=== PATIENT | female | born 1985 | race Caucasian/White ===

== ENCOUNTER 2019-06-09 09:12 | Outpatient (CLI) | payer MEDICAID, SELFPAY ==
--- NOTE | 2019-06-09 | US_ITS ---
WS: [id number] BILATERAL DIGITAL DIAGNOSTIC MAMMOGRAM MAMMOGRAPHY WITH CAD CLINICAL INFORMATION: RT BREAST LUMP COMPARISON: None. TECHNIQUE: Bilateral CC, MLO, and ML views. FINDINGS: The breasts are composed of extremely dense tissue, which can limit the detection of small underlying mass lesions. Palpable marker upper outer right breast. No definite underlying mammographic abnormal ities. Ultrasound right breast is pending. Left breast is unremarkable and unchanged in appearance. ULTRASOUND BREAST RIGHT TECHNIQUE: Ultrasound right breast focused area of concern. CLINICAL INFORMATION: RT BREAST LUMP COMPARISON: None. FINDINGS: Complex cystic lesion at the 11:00 position measuring 7 x 5 x 7 mm with internal debris and echogenic ity. This corresponds to the palpable abnormality. This may represent a complex cyst but is indetermi nant and palpable. Therefore recommend further evaluation with ultrasound-guided aspiration/biopsy. Axilla is also evaluated and demonstrates a well-circumscribed hypoechoic lesion with some through tr ansmission which likely represents a complex cyst. This could be re-evaluated when patient returns fo r biopsy/aspiration of the above lesion. IMPRESSION US/US breast RT limited* [id number] BI-RADS: 4A-Suspicious: Low FOLLOW UP: US Guided Biopsy Recommended
--- NOTE | 2019-06-09 09:28 | MM_ITS ---
WS: [id number] BILATERAL DIGITAL DIAGNOSTIC MAMMOGRAM MAMMOGRAPHY WITH CAD CLINICAL INFORMATION: RT BREAST LUMP COMPARISON: None. TECHNIQUE: Bilateral CC, MLO, and ML views. FINDINGS: The breasts are composed of extremely dense tissue, which can limit the detection of small underlying mass lesions. Palpable marker upper outer right breast. No definite underlying mammographic abnormal ities. Ultrasound right breast is pending. Left breast is unremarkable and unchanged in appearance. ULTRASOUND BREAST RIGHT TECHNIQUE: Ultrasound right breast focused area of concern. CLINICAL INFORMATION: RT BREAST LUMP COMPARISON: None. FINDINGS: Complex cystic lesion at the 11:00 position measuring 7 x 5 x 7 mm with internal debris and echogenic ity. This corresponds to the palpable abnormality. This may represent a complex cyst but is indetermi nant and palpable. Therefore recommend further evaluation with ultrasound-guided aspiration/biopsy. Axilla is also evaluated and demonstrates a well-circumscribed hypoechoic lesion with some through tr ansmission which likely represents a complex cyst. This could be re-evaluated when patient returns fo r biopsy/aspiration of the above lesion. IMPRESSION MM/[place] [id number] BI-RADS: 4A-Suspicious: Low FOLLOW UP: US Guided Biopsy Recommended
== END 2019-06-09 09:13 | disposition home or self-care (01) ==
PROVIDERS: Family Provider Family Medicine; PCP Family Medicine; Visit Provider Nurse Practitioner Family
DX: N60.01 Solitary cyst of right breast (principal); N63.11 Unspecified lump in the right breast, upper outer quadrant
CPT/HCPCS: 76642; 77066

== ENCOUNTER 2019-07-04 12:32 | Outpatient (CLI) | payer MEDICAID, SELFPAY ==
--- NOTE | 2019-07-04 | US_ITS ---
WS: [id number] ULTRASOUND-GUIDED RIGHT BREAST BIOPSY Ultrasound-guided RIGHT axillary lymph node biopsy HISTORY: ABNORMAL MAMMOGRAM, abnormal axillary lymph node. COMPARISON: 06/09/2019 and 05/23/2012 Procedure, risks and complications are explained to the patient. Medications are reviewed. Consent is obtained. The mass in the RIGHT breast is localized with ultrasound. Masses localized at 11:00. Additional loca lization of the RIGHT axillary lymph node which is very hypoechoic. Skin is cleansed with ChloraPrep and anesthetized with 1% buffered lidocaine. Small dermatome is made. Under sterile conditions mass i s biopsied with a 14-gauge Achieve needle. Multiple core biopsies are performed. Material placed in f ormalin and sent to pathology for review. No complications encountered. Breast tissue marker (Bard ultrasound enhanced ribbon): None. Patient left the radiology suite with no complications. Patient is instructed to return to [facility] [place] or [facility] with any concerns. 1. Uncomplicated core needle biopsy RIGHT breast mass at 11:00. 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 No definite invasion tumor identified. Additional special stains a nd consultation is being obtained. Follow-up: Additional stains were performed and demonstrated no malignancy. RECOMMENDATION: No additional follow-up necessary. 2. Uncomplicated core needle biopsy RIGHT axillary lymph node. PATHOLOGY: No viable metastatic tumor identified. Necrotic cells may represent infarcted lymph node or necrotic metastatic carcinoma. RECOMMENDATION: No metastatic tumor was identified. Due to the necrotic nature cannot exclude necrotic metastatic carcinoma. If further evaluation is warrante d clinically, follow-up with surgery and surgical removal of this lymph node ca n be performed.
--- NOTE | 2019-07-04 12:38 | US_ITS ---
WS: [id number] ULTRASOUND-GUIDED RIGHT BREAST BIOPSY Ultrasound-guided RIGHT axillary lymph node biopsy HISTORY: ABNORMAL MAMMOGRAM, abnormal axillary lymph node. COMPARISON: 06/09/2019 and 05/23/2012 Procedure, risks and complications are explained to the patient. Medications are reviewed. Consent is obtained. The mass in the RIGHT breast is localized with ultrasound. Masses localized at 11:00. Additional loca lization of the RIGHT axillary lymph node which is very hypoechoic. Skin is cleansed with ChloraPrep and anesthetized with 1% buffered lidocaine. Small dermatome is made. Under sterile conditions mass i s biopsied with a 14-gauge Achieve needle. Multiple core biopsies are performed. Material placed in f ormalin and sent to pathology for review. No complications encountered. Breast tissue marker (GeoEye ultrasound enhanced ribbon): None. Patient left the radiology suite with no complications. Patient is [place] [facility] [place] [facility] with any concerns. 1. Uncomplicated core needle biopsy RIGHT breast mass at 11:00. US/[place] [id number] IMPRESSION: PATHOLOGY: Sclerosing adenosis with columnar cell hyperplasia and moderate cell ular atypia. No definite invasion tumor identified. Additional special stains a nd consultation is being obtained. Follow-up: Additional stains were performed and demonstrated no malignancy. RECOMMENDATION: No additional follow-up necessary. 2. Uncomplicated core needle biopsy RIGHT axillary lymph node. PATHOLOGY: No viable metastatic tumor identified. Necrotic cells may represent infarcted lymph node or necrotic metastatic carcinoma. RECOMMENDATION: No metastatic tumor was identified. Due to the necrotic nature cannot exclude necrotic metastatic carcinoma. If further evaluation is warrante d clinically, follow-up with surgery and surgical removal of this lymph node ca n be performed.
== END 2019-07-04 12:33 | disposition home or self-care (01) ==
LOC: RAD 12:35
PROVIDERS: Family Provider Family Medicine; PCP Family Medicine; Visit Provider Nurse Practitioner Family
DX: N60.21 Fibroadenosis of right breast (principal); N60.91 Unspecified benign mammary dysplasia of right breast; R92.8 Other abnormal and inconclusive findings on diagnostic imaging of breast; Z01.812 Encounter for preprocedural laboratory examination
CPT/HCPCS: 19083; 38505; 76942; 88305; 88341; 88342; J2001

== ENCOUNTER 2019-07-13 09:24 | Outpatient (RCR) | payer MEDICAID, SELFPAY | END 2019-08-05 23:59 | disposition home or self-care (01) | LOC: APT 09:24 | PROVIDERS: Family Provider Family Medicine; PCP Family Medicine; Visit Provider Nurse Practitioner Family | DX: G89.29 Other chronic pain (principal); M54.9 Dorsalgia, unspecified | CPT/HCPCS: 97110; 97140; 97161 ==

== ENCOUNTER 2019-08-01 08:17 | Day surgery (SDC) | payer MEDICAID, SELFPAY ==
[2019-07-31 10:08] VITALS: BMI 21.2
[2019-08-01 08:57] LABS: OR HCG Qualitative Urine Negative (Negative)
[2019-08-01] MEDS: sodium chloride 0.9% 1,000 ML 30 ML IV (09:11)
[2019-08-01 09:14] VITALS: BP 115/76; PULSE 73; RESP 18; TEMP 36.9; O2SAT 98
--- NOTE | 2019-08-01 09:34 | ANES.PREANE2 ---
Pre-Anesthetic Assessment Pre-Anesthetic Assessment: Height/Weight: Height 1.73 m Weight 63.503 kg Temp Pulse Resp BP Pulse Ox 98.5 F 73 18 115/76 98 08/01/19 09:14 08/01/19 09:14 08/01/19 09:14 08/01/19 09:14 08/01/19 09:14 Preop Diagnosis: Right axillary lymphadenopathy Proposed Procedure: Operation Date: 08/01/19 10:10 Proposed Procedures p Excision Of Right Axillary Mass 71417 R59.0(Right) - Colt Tatum MD Familial anesthetic complications: None Was Beta Tobi taken within 24 hours: N/A Last intake: Intake Last Liquid Date 08/01/19 Last Liquid Time 00:00 Last Solid Date 08/01/19 Last Solid Time 00:00 Social: Social History: Tobacco Packs per day: 1 ppd Exam: Pre-Anes Outpt Exam: alert, oriented x 3, clear to auscultation bilaterally and regular rate & rhythm Airway: Cervical ROM: WNL MP: 3 Dentition: Chipped Additional comments: missing Pulmonary: Pulmonary: None reported CV/HEM: CV/HEM: None reported : : None reported Hepatic: Hepatic: None reported GI: GI: GERD Metabolic: Metabolic: None reported Musc/skel: Musc/skel: Lower Back Pain Neuropsych: Neuropsych: None reported Anesthetic Plan: ASA status: 2 Anesthesia: MAC Meds/Allergies Current Medications: Current Medications Generic Name Dose Route Start Last Admin Trade Name Freq PRN Reason Stop Dose Admin Sodium Chloride 1,000 mls @ 30 ml s/hr 08/01/19 09:00 08/01/19 09:11 Sodium Chloride 0.9% IV 08/02/19 08:59 30 mls/hr .Q24H DANNY Administration PFSH Anesthesia PFSH: Social History Smoking and tobacco status: current every day smoker Alcohol intake: current Alcohol intake frequency: holidays/special occasions only Marital status: Single History of recent travel: No Data Anesthesia Other Labs: Laboratory Results - last 48 hr 08/01/19 08:53 Urine HCG, Qual Negative Cardiac Studies: No Data to Display
--- NOTE | 2019-08-01 09:45 | W.PM.OPSUD ---
Surgery/Procedure H&P Update DATE OF PROCEDURE: August 01, 2019 DATE H&P PERFORMED: 07/26/19 H&P UPDATE INFORMATION: I have reviewed H&P completed within last 30 days, I have examined patient prior to procedure and No changes to prior documentation PREOP DIAGNOSIS: Right axillary lymphadenopathy PRIMARY INDICATION FOR PROCEDURE: The same PLANNED PROCEDURE: Operation Date: 08/01/19 10:10 Proposed Procedures p Excision Of Right Axillary Mass [id number] R59.0(Right) - Colt Tatum MD
[2019-08-01] MEDS: clindamycin 600 MG/50 ML PREMIX 100 MG IV (10:10)
[2019-08-01] MEDS: lidocaine 2% INJ 20 mL INJECTION (10:15)
--- NOTE | 2019-08-01 11:02 | P.OP_ITS ---
Operative Report Date of procedure: August 01, 2019 Pre-op Diagnosis: Right axillary lymphadenopathy Post-op diagnosis: same Procedure Done: Excision of right axillary lymph node Specimens removed/disposition: Lymph node was cut at the back table by me and divided into 3 specimens : specimen #1 sent for permanent pathology Specimen #2 sent for lymphoma saline fresh Specimen #3 and sent for tissues and culture Surgeon: Colt Tatum Photoengraving Machine Operator/Tender: Surgical techharris Nassar Circulating nurse Fernanda Anesthesia: MAC (dog and cat food cook Galilea) Estimated blood loss (mL): 5 Findings: Right axillary lymph node less than 1 cm belongs to the anterior group of the right axilla Condition: stable Disposition: same day Brief History: This is a pleasant 34 years old female patient was found to have a painful right breast lump that was biopsied and showed sclerosing adenosis yet there was incidental finding of right axilla lymph node that was biopsied and showed necrosis and there was concern of potential metastatic disease yet there was no final pathological confirmation per pathology, patient was referred to me for further evaluation and after thorough history physical examination and reviewing the chart and reviewing the images with my personal interpretation and discussing further the case with Dr. Leblanc the pathologist, he recommended to excised the lymph node in its entirety for better interpretation and examination. Patient agreed on the plan of care and informed consent per chart Procedure: Axillary lymph node biopsy After identifying the patient holding area, the right axilla was marked before the procedure by myself in the presence of female corporate relations manager Fernanda and Aaliyah RNs,patient was then taken to the operative suite, was placed in supine position, intubated by anesthesia, prophylactic IV antibiotics were given per protocol, right arm was placed in 90? to her body, prep and drape of the right axillary and pectoralis regions was done under the usual sterile technique the right arm Time-out was done verifying the patient's name/date of /planned procedure and destination after the procedure, all were in agreement. After palpation of the right axillary lymph which was located in the anterior axillary group, I did a transverse incision on top of the lymph node corresponding to the skin crease increase, I was able to dissect using Bovie cautery and a good margin of normal subcutaneous tissues surrounding the lymph node, multiple small clips were applied for hemostasis. At the back table the Lymph node specimen was cut by me First portion sent for permanent pathology Second portion sent fresh for lymphoma cell line Third portion sent for culture & sensitivity And the specimens were then passed to the circulating nurse. Thorough irrigation of the cavity was done and hemostasis, followed by deep dermal closure by 3-0 Vicryl, then 4-0 Monocryl for skin closure Lidocaine 2% was injected at the site of the incision that prior to the injection aspiration was done to make sure no injection is going into any vessel, followed by Mastisol Steri-Strips and dry dressing. Patient tolerated the procedure well, count of instruments, needles and sponges were completed at the end of the procedure.And then patient was taken to the recovery area in stable condition. I Was present for the whole entire procedure
[2019-08-01 11:09] VITALS: BP 101/68; PULSE 78; RESP 18; TEMP 36.2; O2SAT 99
[2019-08-01] MEDS: HYDROcodone-acetaminophen 5-325 mg Tablet 1 TAB PO (11:34)
[2019-08-01 11:39] VITALS: BP 122/81; PULSE 73; RESP 18; O2SAT 99
[2019-08-08 13:32] LABS: Miscellaneous Test See Scanned Lab Rpt
== END 2019-08-01 11:58 | disposition home or self-care (01) ==
PROVIDERS: Family Provider Family Medicine; PCP Nurse Practitioner Family; Visit Provider Surgery
PROC: (CPT 38500; principal; 2019-08-01 10:10)
DX: R59.1 Generalized enlarged lymph nodes (principal); F17.210 Nicotine dependence, cigarettes, uncomplicated; K21.9 Gastro-esophageal reflux disease without esophagitis
CPT/HCPCS: 38500; 12345; 81025; 84703; 87015; 87070; 87077; 87102; 87116; 87176; 87186; 87205; 87206; 87801; 88305; J1100; J2001; J2250; J2405; J2704; J3010; J3490; J7030

== ENCOUNTER 2019-08-06 06:00 | Outpatient (RCR) | payer MEDICAID, SELFPAY | END 2019-09-05 23:59 | disposition home or self-care (01) | LOC: APT 06:00 | PROVIDERS: Family Provider Family Medicine; PCP Nurse Practitioner Family; Visit Provider Nurse Practitioner Family | DX: M54.5 Low back pain (principal) | CPT/HCPCS: 97110; 97140; 97164 ==

== ENCOUNTER → 2019-08-09 12:01 | Outpatient (BNVA) | payer MEDICAID, SELFPAY | PROVIDERS: Family Provider Family Medicine; PCP Nurse Practitioner Family; Visit Provider Nurse Practitioner | DX: E55.9 Vitamin D deficiency, unspecified (principal); R53.83 Other fatigue; Z13.220 Encounter for screening for lipoid disorders | CPT/HCPCS: 80053; 80061; 82306; 82607; 83540; 84443; 85025 ==

== ENCOUNTER → 2019-11-21 11:41 | Outpatient (BNVA) | payer MEDICAID, SELFPAY | PROVIDERS: Family Provider Family Medicine; PCP Nurse Practitioner Family; Visit Provider Nurse Practitioner | DX: E53.8 Deficiency of other specified B group vitamins (principal); E55.9 Vitamin D deficiency, unspecified; R53.83 Other fatigue | CPT/HCPCS: 82306; 82607; 83540; 85651; 86140; 86800 ==

== ENCOUNTER 2020-01-31 21:52 | Emergency (ER) | payer MEDICAID, SELFPAY ==
[2020-01-31 22:12] VITALS: BP 114/74; PULSE 98; RESP 14; TEMP 37; O2SAT 99; BMI 21.9
--- NOTE | 2020-01-31 23:51 | ED_ITS ---
HPI - Abdominal Pain General: Chief Complaint: Abdominal Pain Stated Complaint: abd pain Time Seen by Provider: 01/31/20 23:50 History of Present Illness: HPI narrative: Patient is a 34-year-old female comes to the ED with abdominal pain, nausea and vomiting. Abdominal pain started approximately 5 days ago. Pain is located in the arline-umbilical region and she says that gets worse at the evening. She rates the pain currently a 10 out of 10. Today patient started feeling nauseous and had 3 episodes of emesis. She endorses having a decreased appetite since onset of abdominal pain. Patient denies any past surgeries on the abdomen. Denies any constipation, diarrhea, blood in the stool, fever, chills, dysuria or hematuria. Associated Symptoms: Reports nausea and vomiting; Denies chills, constipation, diarrhea, dysuria, fever(s), hematochezia and hematuria Review of Systems Const: Reports: change in appetite (Decreased appetite); Denies: fever(s), chills or fatigue Eyes: Denies: change in vision or eye discomfort ENMT: Denies: throat pain, odynophagia, nasal discharge or nasal congestion Card: Denies: chest pain, palpitations, edema, swelling of feet/ankles, dyspnea on exertion or orthopnea Resp: Denies: dyspnea, productive cough or non-productive cough GI: Reports: abdominal pain, nausea and vomiting; Denies: diarrhea, constipation or hematochezia : Denies: flank pain, dysuria or hematuria Musc: Denies: neck pain, back pain or extremity swelling Skin/Breast: Denies: rash or new lesions Neuro: Denies: headache(s), numbness in extremities or weakness in extremities [facility] PFSH: Medical History Breast lump GERD (gastroesophageal reflux disease) Hypoglycemia Surgical History History of breast biopsy July 04 History of foot surgery History of lymphadenopathy Right axilla removal 08/01/19 History of tonsillectomy Family History Other Cancer Diabetes Denies family history of Anesthesia complication Bleeding disorder Social History Smoking and tobacco status: current every day smoker Second hand smoke exposure: No Smoking risk assessment/counseling performed?: No Alcohol intake: current Alcohol intake frequency: holidays/special occasions only Desire information about alcohol rehabilitation?: No Counseling given: No Desire information about substance/drug rehabilitation?: No Counseling given: No Adopted: No Caregiver/support person: No Lives independently: Yes Household members: children and none Housing: House Marital status: Single Number of children: 2 service: No Current occupational status: employed Current occupation: [employer] History of recent travel: No Current gender identity: Female Physical Exam Const: COMMON NORMALS: no acute distress, patient oriented x3, healthy appearing and alert GENERAL APPEARANCE: cooperative and comfortable HENMT: COMMON NORMALS: normocephalic HEAD & SCALP: normocephalic MOUTH: Normal oral and palatal mucosa present THROAT: posterior oropharynx normal and uvula midline Eye: COMMON NORMALS: Equal, round and reactive pupils present PUPIL: Yes Equal, round and reactive pupils present Neck/C-Spine: COMMON NORMALS: supple GENERAL: Yes normal visual inspection Resp: COMMON NORMALS: normal respiratory effort, No retractions, No use of accessory muscles and clear to auscultation bilaterally EFFORT & INSPECTION: Yes able to speak in complete sentences, No tachypneic, No respiratory distress and No labored AUSCULTATION: clear to auscultation bilaterally Cardio: COMMON NORMALS: regular rate, regular rhythm, S1 normal heart sound present, S2 normal heart sound present, No gallops present (Cardio), No clicks present (Cardio), No murmurs present (Cardio) and Peripheral pulses 2+ throughout RATE: regular rate RHYTHM: regular rhythm HEART SOUNDS: S1 normal heart sound present and S2 normal heart sound present PERIPHERAL PULSES: Peripheral pulses 2+ throughout GI: COMMON NORMALS: Normal to inspection, nondistended, normoactive bowel sounds present, Soft to palpation and no masses PALPATION: Yes Soft to palpation and Yes Tenderness to palpation present (GI) Details: RLQ (McBurney's point tenderness) and other (Periumbilical) : COMMON NORMALS: Yes no CVA tenderness BLADDER/KIDNEY EXAM: Yes no CVA tenderness Back/Pelvis: COMMON NORMALS: no CVA tenderness Extremity: COMMON NORMALS: normal to inspection and no pedal edema Neuro: COMMON NORMALS: patient oriented x3 SENSORIUM/ORIENTATION: Yes alert GAIT: Yes Normal gait present Skin: COMMON NORMALS: no rashes or lesions noted GENERAL SKIN EXAM: no rashes or lesions noted and dry skin Course Reevaluation(s): Reevaluation #1: Patient's abdominal pain had improved after pain meds while here in the ED. Time: 02:35 Vital Signs: Vital signs: Vital Signs Temperature 98.6 F 01/31/20 22:12 Pulse Rate 98 01/31/20 22:12 Respiratory Rate 20 H 02/01/20 01:15 Blood Pressure 114/74 01/31/20 22:12 Pulse Oximetry 97 02/01/20 01:15 MDM - Abdominal Pain MDM Narrative: Medical decision making narrative: Patient is a 34-year-old female comes to the ED with abdominal pain. Pain is located in the periumbilical region and she has some tenderness in the right lower quadrant. Denies any fever, chills, diarrhea, constipation, blood in the stool, dysuria or hematuria. White blood cell count 18.4, but the rest of CBC and CMP were unre markable. Lipase 10. hCG was negative. UA showed a significant amount of RBCs. CT of the abdomen showed mesenteric adenitis. Patient was diagnosed with mesenteric adenitis and hematuria antibiotic. Due to patient's high white blood cell count and mesenteric adenitis I put her on a prescription of Flagyl and ciprofloxacin. I also sent her home with a prescription of Zofran to help with nausea. She was told to follow-up with her PCP in about 5 days and to discuss with PCP about large amounts of RBCs and blood seen in UA. Return to ED precautions given. Patient understood and agreed with plan. Lab Data: Attestation: I reviewed the patient's lab results. Labs: Lab Results 02/01/20 02/01/20 02/01/20 Range/Units 00:45 00:45 00:45 WBC 18.4 H (4.0-10.0) 10^3/ uL RBC 4.23 (4.1-5.3) 10^6/u L Hgb 13.0 (11.5-15.3) g/dL Hct 40.7 (37.0-47.0) % MCV 96.2 (81-99) fL MCH 30.7 (28.0-34.0) pg MCHC 31.9 (30.0-36.0) g/dL RDW 12.3 (12.1-15.1) % Plt Count 246 (130-400) 10^3/c mm MPV 10.9 H (7.4-10.4) fL Neut % (Auto) 76.7 % Lymph % (Auto) 14.7 % Hamlin % (Auto) 7.1 % Eos % (Auto) 0.6 % Baso % (Auto) 0.5 % Neut # (Auto) 14.12 H (1.8-7.7) 10^3/u L Lymph # (Auto) 2.7 (0.8-4.8) 10^3/u L Hamlin # (Auto) 1.3 H (0.2-0.9) 10^3/u L Eos # (Auto) 0.1 (0.0-0.8) 10^3/u L Baso # (Auto) 0.1 (0.0-0.1) 10^3/u L Nucleated RBC % (a uto) 0 % Nucleated RBCs # 0.0 /100WBC Sodium 139 (136-145) mmol/L Potassium 4.2 (3.5-5.1) mmol/L Chloride 107 (98-107) mmol/L Carbon Dioxide 21 L (22-29) mmol/L Anion Gap 15.2 (5-19) BUN 13 (6-20) mg/dL Creatinine 0.6 (0.5-0.9) mg/dL GFR Calculation 113.8 (90-130) mL/min Glucose 96 (65-115) mg/dL Calculated Osmolal ity 284 L (285-295) mOsm/k g Calcium 8.7 (8.5-10.5) mg/dL Total Bilirubin 0.2 (0.15-1.2) mg/dL AST 8 (0-32) U/L ALT < 5 (0-33) U/L Alkaline Phosphata se 79 (35-105) IU/L Total Protein 6.8 (6.6-8.7) g/dL Albumin 3.6 (3.5-5.2) g/dL Globulin 3.2 (1.3-4.6) g/dL Lipase 10 L (13-60) U/L HCG, Qual Negative (Negative) Urine Color (Yellow) Urine Appearance (CLEAR) Urine pH (5-7) Ur Specific Gravit y (1.005-1.030) Urine Protein (Negative) Urine Glucose (UA) (Normal) Urine Ketones (Negative) Urine Blood (Negative) Urine Nitrate (Negative) Urine Bilirubin (NEGATIVE) Urine Urobilinogen (Negative) mg/dL Ur Leukocyte Vanna ase (Negative) Urine RBC (0-2) /hpf Urine WBC (0-5) /hpf Ur Squamous Epith Cells (0-5) Amorphous Sediment Urine Bacteria (NONE) Urine Mucus 02/01/20 02/01/20 Range/Units 02:45 02:45 WBC (4.0-10.0) 10^3/ uL RBC (4.1-5.3) 10^6/u L Hgb (11.5-15.3) g/dL Hct (37.0-47.0) % MCV (81-99) fL MCH (28.0-34.0) pg MCHC (30.0-36.0) g/dL RDW (12.1-15.1) % Plt Count (130-400) 10^3/c mm MPV (7.4-10.4) fL Neut % (Auto) % Lymph % (Auto) % Hamlin % (Auto) % Eos % (Auto) % Baso % (Auto) % Neut # (Auto) (1.8-7.7) 10^3/u L Lymph # (Auto) (0.8-4.8) 10^3/u L Hamlin # (Auto) (0.2-0.9) 10^3/u L Eos # (Auto) (0.0-0.8) 10^3/u L Baso # (Auto) (0.0-0.1) 10^3/u L Nucleated RBC % (a uto) % Nucleated RBCs # /100WBC Sodium (136-145) mmol/L Potassium (3.5-5.1) mmol/L Chloride (98-107) mmol/L Carbon Dioxide (22-29) mmol/L Anion Gap (5-19) BUN (6-20) mg/dL Creatinine (0.5-0.9) mg/dL GFR Calculation (90-130) mL/min Glucose (65-115) mg/dL Calculated Osmolal ity (285-295) mOsm/k g Calcium (8.5-10.5) mg/dL Total Bilirubin (0.15-1.2) mg/dL AST (0-32) U/L ALT (0-33) U/L Alkaline Phosphata se (35-105) IU/L Total Protein (6.6-8.7) g/dL Albumin (3.5-5.2) g/dL Globulin (1.3-4.6) g/dL Lipase (13-60) U/L HCG, Qual Negative (Negative) Urine Color Dark yellow (Yellow) Urine Appearance Sl hazy (CLEAR) Urine pH 5 (5-7) Ur Specific Gravit y 1.020 (1.005-1.030) Urine Protein Neg (Negative) Urine Glucose (UA) Norm (Normal) Urine Ketones Negative (Negative) Urine Blood 3+ H (Negative) Urine Nitrate Negative (Negative) Urine Bilirubin Neg (NEGATIVE) Urine Urobilinogen Norm (Negative) mg/dL Ur Leukocyte Vanna ase Negative (Negative) Urine RBC >100 H (0-2) /hpf Urine WBC 0-4 H (0-5) /hpf Ur Squamous Epith Cells 0-4 H (0-5) Amorphous Sediment Not Reportable Urine Bacteria 1+ H (NONE) Urine Mucus 1+ Imaging Data ^: CT Abd/Pel: Attestation: I personally reviewed and interpreted this imaging study as follows: Radiologist's impression: [place] [address] CT Scan Report Signed Patient: Bety Mercer Unit #: [id number] : 1985 Age/Sex: 34 / F ADM Date: 01/31/20 Loc: ER Room/Bed: Attending Dr: Ordering Provider/Ordering MD: Miguel Peña Date of Service: 02/01/20 Procedure(s): CT abdomen pelvis w con* [id number] Accession Number(s): [id number] Report Number: [id number] PROCEDURE INFORMATION: Exam: CT Abdomen And Pelvis With Contrast Exam date and time: 02/01/2020 12:39 AM Age: 34 years old Clinical indication: Abdominal pain; Generalized; Additional info: Rlq tenderness and periumbilical pain TECHNIQUE: Imaging protocol: Computed tomography of the abdomen and pelvis with intravenous contrast. Radiation optimization: All CT scans at this facility use at least one of these dose optimization techniques: automated exposure control; mA and/or kV adjustment per patient size (includes targeted exams where dose is matched to clinical indication); or iterative reconstruction. Contrast material: OMNI 300; Contrast volume: 95 ml; Contrast route: INTRAVENOUS (IV); COMPARISON: No relevant prior studies available. RADIATION DOSE METRICS: Total DLP (mGy-cm): 466.39 FINDINGS: Liver: The liver is mildly enlarged. No parenchymal lesion is seen. Gallbladder and bile ducts: Normal. No calcified stones. No ductal dilation. Pancreas: Normal. No ductal dilation. Spleen: Normal. No splenomegaly. Adrenals: Normal. No mass. Kidneys and ureters: Normal. No hydronephrosis. Stomach and bowel: Unremarkable. No obstruction. No mucosal thickening. Appendix: The appendix is normal. Intraperitoneal space: Unremarkable. No free air. No significant fluid collection. Vasculature: Unremarkable. No abdominal aortic aneurysm. Lymph nodes: Several mildly prominent lymph nodes are observed in the ileocolic region. Bladder: Unremarkable as visualized. Reproductive: The uterus and ovaries appear normal. Bones/joints: Unremarkable. No acute fracture. Soft tissues: Unremarkable. CT/CT abdomen pelvis w con* [id number] IMPRESSION: 1. Possible mild mesenteric adenitis. The appendix is normal. 2. Mild hepatomegaly. Radiation Dose CTDIVOL = (mGy): DLP = 466.39 (mGy-cm) Dictated By: Ernie Santamaria MD Signed By: Ernie Santamaria MD Signed Date/Time: 02/01/20222 DD/ 0 Discharge Plan Discharge Patient Disposition: Home Clinical Impression: Mesenteric adenitis, Hematuria of unknown etiology Condition: Stable Prescriptions: New Zofran 4 mg tablet 4 mg PO Q8H Qty: 20 RF: 0 ciprofloxacin HCl 750 mg tablet 750 mg PO DAILY 5 Days Qty: 5 RF: 0 Flagyl 500 mg tablet 500 mg PO TID 7 Days Qty: 21 RF: 0 No Action etonogestrel-ethinyl estradiol [NuvaRing] 0.12-0.015 mg/24 hr ring See Rx Instructions .ROUTE .COMPLEX RF: 0 cholecalciferol (vitamin D3) 5,000 unit tablet,disintegrating 5,000 unit PO DAILY Qty: 30 RF: 0 cyanocobalamin (vitamin B-12) 1,000 mcg/mL solution 1,000 mcg IM .monthly 7 Days Qty: 1 RF: 2 meloxicam [Mobic] 15 mg tablet 15 mg PO DAILY Qty: 30 RF: 2 Discharge Orders: Discharge Order (Routine); Ordered 02/01/20 Ordered By: Miguel Peña Referrals: Daysi Haro, THERAPY TEACHER-C [Primary Care Provider] - Discharge Diet: Advance as tolerated Discharge Activity: Increase activity as tolerated Patient Instructions: Hematuria - Female, Acute Hematuria (ED), Mesenteric Adenitis (ED) Activity Restrictions/Additional Instructions: Follow-up with medical provider as directed in about 5 days. Discussed with your doctor about recent findings of blood in the urine. Take medications as prescribed. Return to the ER or your medical provider if condition worsens. Please read and understand discharge instructions. If any questions, please ask. Coding Level of Care Code ED Ophthalmic Tech for Briseida Fwd Exam Comprehensive
--- NOTE | 2020-02-01 00:05 | CTR_ITS ---
PROCEDURE INFORMATION: Exam: CT Abdomen And Pelvis With Contrast Exam date and time: 02/01/2020 12:39 AM Age: 34 years old Clinical indication: Abdominal pain; Generalized; Additional info: Rlq tenderness and periumbilical pain TECHNIQUE: Imaging protocol: Computed tomography of the abdomen and pelvis with intravenous contrast. Radiation optimization: All CT scans at this facility use at least one of these dose optimization techniques: automated exposure control; mA and/or kV adjustment per patient size (includes targeted exams where dose is matched to clinical indication); or iterative reconstruction. Contrast material: OMNI 300; Contrast volume: 95 ml; Contrast route: INTRAVENOUS (IV); COMPARISON: No relevant prior studies available. RADIATION DOSE METRICS: Total DLP (mGy-cm): 466.39 FINDINGS: Liver: The liver is mildly enlarged. No parenchymal lesion is seen. Gallbladder and bile ducts: Normal. No calcified stones. No ductal dilation. Pancreas: Normal. No ductal dilation. Spleen: Normal. No splenomegaly. Adrenals: Normal. No mass. Kidneys and ureters: Normal. No hydronephrosis. Stomach and bowel: Unremarkable. No obstruction. No mucosal thickening. Appendix: The appendix is normal. Intraperitoneal space: Unremarkable. No free air. No significant fluid collection. Vasculature: Unremarkable. No abdominal aortic aneurysm. Lymph nodes: Several mildly prominent lymph nodes are observed in the ileocolic region. Bladder: Unremarkable as visualized. Reproductive: The uterus and ovaries appear normal. Bones/joints: Unremarkable. No acute fracture. Soft tissues: Unremarkable. CT/CT abdomen pelvis w con* [id number] IMPRESSION: 1. Possible mild mesenteric adenitis. The appendix is normal. 2. Mild hepatomegaly. Radiation Dose CTDIVOL = (mGy): DLP = 466.39 (mGy-cm)
[2020-02-01] MEDS: sodium chloride 0.9% 1,000 ML 999 ML IV (01:00)
[2020-02-01] MEDS: ondansetron 2 mg/ML SDV 2 mL 4 MG IVP (01:05)
[2020-02-01 01:15] VITALS: RESP 20; O2SAT 97
[2020-02-01] MEDS: morphine 4 mg/mL SDV 1 mL IVP ×2 (01:15→03:25)
[2020-02-01 01:30] LABS: Basophils # 0.1 10^3/uL (0.0-0.1); Basophils % 0.5 %; Eosinophils # 0.1 10^3/uL (0.0-0.8); Eosinophils % 0.6 %; Hematocrit 40.7 % (37.0-47.0); Lymphocytes # 2.7 10^3/uL (0.8-4.8); Lymphocytes % 14.7 %; Mean Corpuscular HGB Conc 31.9 g/dL (30.0-36.0); Mean Corpuscular Hemoglobin 30.7 pg (28.0-34.0); Mean Corpuscular Volume 96.2 fL (81-99); Mean Platelet Volume 10.9 fL (7.4-10.4); Monocytes # 1.3 10^3/uL (0.2-0.9); Monocytes % 7.1 %; Neutrophils # 14.12 10^3/uL (1.8-7.7); Neutrophils % 76.7 %; Nucleated Red Blood Cells % 0 %; Platelet Count 246 10^3/cmm (130-400); Red Blood Count 4.23 10^6/uL (4.1-5.3); Red Cell Distribution Width 12.3 % (12.1-15.1); White Blood Count 18.4 10^3/uL (4.0-10.0)
[2020-02-01 01:42] LABS: HCG, Serum Qual Negative (Negative)
[2020-02-01 01:46] LABS: Alanine Aminotransferase < 5 U/L (0-33); Albumin Level 3.6 g/dL (3.5-5.2); Alkaline Phosphatase 79 IU/L (35-105); Blood Urea Nitrogen 13 mg/dL (6-20); Calcium 8.7 mg/dL (8.5-10.5); Carbon Dioxide 21 mmol/L (22-29); Chloride 107 mmol/L (98-107); Globulin 3.2 g/dL (1.3-4.6); Glomerular Filtration Rate 113.8 mL/min (90-130); Glucose 96 mg/dL (65-115); Lipase 10 U/L (13-60); Osmolality Calculated 284 mOsm/kg (285-295); Sodium 139 mmol/L (136-145); Total Bilirubin 0.2 mg/dL (0.15-1.2); Total Protein 6.8 g/dL (6.6-8.7)
[2020-02-01 01:48] LABS: Anion Gap 15.2 (5-19); Aspartate Amino Transferase 8 U/L (0-32); Potassium 4.2 mmol/L (3.5-5.1)
[2020-02-01] MEDS: iohexol 300 mg/mL 100 mL Btl IV (02:00)
[2020-02-01 03:12] LABS: HCG Qualitative Urine. Negative (Negative)
[2020-02-01 03:16] LABS: Add Urine Culture? Yes; Bacteria Urine 1+; Bilirubin Urine Neg (NEGATIVE); Blood Urine 3+ (Negative); Glucose Urine UA Norm (Normal); Ketones Urine Negative (Negative); Leukocyte Esterase Urine Negative (Negative); Mucus Urine 1+; Nitrate Urine Negative (Negative); Protein Urine Neg (Negative); RBC Urine >100 /hpf (0-2); Squamous Epithelial Cell Urine 0-4 (0-5); Urine Appearance SL Hazy (CLEAR); Urine Color Dark Yellow (Yellow); Urobilinogen Urine Norm (Negative); WBC Urine 0-4 /hpf (0-5); pH Urine 5 (5-7)
[2020-02-01 03:25] VITALS: RESP 18
[2020-02-01] MEDS: ciprofloxacin 500 mg Tablet PO (03:30)
[2020-02-01] MEDS: metroNIDAZOLE 500 MG Tablet PO (03:30)
[2020-02-01 04:12] VITALS: BP 99/64; PULSE 76; RESP 18; O2SAT 97
== END 2020-02-01 04:27 | disposition home or self-care (01) ==
PROVIDERS: Emergency Medicine; Emergency Provider Physician Assistant; PCP Nurse Practitioner
DX: I88.0 Nonspecific mesenteric lymphadenitis (principal); R31.9 Hematuria, unspecified; F17.210 Nicotine dependence, cigarettes, uncomplicated
CPT/HCPCS: 12345; 74177; 80053; 81001; 81025; 83690; 84703; 85025; 87086; 96374; 96375; 99283; 99284; J2270; J2405; J7030; Q9967

== ENCOUNTER → 2020-02-01 16:47 | Outpatient (BNVA) | payer MEDICAID, SELFPAY | PROVIDERS: PCP Nurse Practitioner; Visit Provider Nurse Practitioner Family | DX: R31.9 Hematuria, unspecified (principal); I88.0 Nonspecific mesenteric lymphadenitis; R10.9 Unspecified abdominal pain; R31.29 Other microscopic hematuria | CPT/HCPCS: 81000; 85025 ==

== ENCOUNTER → 2020-02-29 14:35 | Outpatient (BNVA) | payer MEDICAID, SELFPAY | PROVIDERS: PCP Nurse Practitioner; Visit Provider Nurse Practitioner | DX: Z20.828 Contact with and (suspected) exposure to other viral communicable diseases (principal) | CPT/HCPCS: 87635 ==

== ENCOUNTER → 2020-03-11 16:39 | Outpatient (BNVA) | payer MEDICAID, SELFPAY | PROVIDERS: PCP Nurse Practitioner; Visit Provider Nurse Practitioner Family | DX: E53.8 Deficiency of other specified B group vitamins (principal); E55.9 Vitamin D deficiency, unspecified; R53.83 Other fatigue | CPT/HCPCS: 80053; 82306; 82607; 85025; 85651; 86140 ==

== ENCOUNTER → 2020-04-12 14:39 | Outpatient (BNVA) | payer MEDICAID, SELFPAY | PROVIDERS: PCP Nurse Practitioner; Visit Provider Surgery | DX: K21.9 Gastro-esophageal reflux disease without esophagitis (principal); K59.00 Constipation, unspecified | CPT/HCPCS: 87635 ==

== ENCOUNTER 2020-04-17 07:17 | Day surgery (SDC) | payer MEDICAID, SELFPAY ==
[2020-04-17 07:49] LABS: OR HCG Qualitative Urine Negative (Negative)
[2020-04-17 07:57] VITALS: BP 120/73; PULSE 67; RESP 18; TEMP 36.9; O2SAT 97
[2020-04-17] MEDS: sodium chloride 0.9% 1,000 ML 30 ML IV (07:57)
--- NOTE | 2020-04-17 08:07 | P.ANESASSM_ITS ---
Pre-Anesthetic Assessment Pre-Anesthetic Assessment: Height/Weight: Height 1.7 m Weight 60.328 kg Temp Pulse Resp BP Pulse Ox 98.4 F 67 18 120/73 97 04/17/20 07:57 04/17/20 07:57 04/17/20 07:57 04/17/20 07:57 04/17/20 07:57 Preop Diagnosis: Change in bowel habits and bloating Proposed Procedure: Operation Date: 04/17/20 08:30 Proposed Procedures p EGD/Colon 60349 K21.9(Not Applicable) - Colt Tatum MD s Colonoscopy 57336 K59.00(Not Applicable) - Colt Tatum MD Was Beta Tobi taken within 24 hours: N/A Last intake: Intake Last Liquid Date 04/16/20 Last Liquid Time 19:30 Last Solid Date 04/15/20 Last Solid Time 18:00 Social: Social History: Tobacco and No alcohol Exam: Pre-Anes Outpt Exam: alert, oriented x 3, clear to auscultation bila terally and regular rate & rhythm Airway: Submandibular: WNL Cervical ROM: WNL MP: 1 History/ROS: No significant history except as noted Pulmonary: Pulmonary: None reported CV/HEM: CV/HEM: None reported : : None reported Hepatic: Hepatic: None reported GI: GI: None reported Metabolic: Metabolic: None reported Musc/skel: Musc/skel: None reported Neuropsych: Neuropsych: Depression Anesthetic Plan: ASA status: 2 Anesthesia: MAC Meds/Allergies Current Medications: Current Medications Generic Name Dose Route Start Last Admin Trade Name Freq PRN Reason Stop Dose Admin Sodium Chloride 1,000 mls @ 30 ml s/hr 04/17/20 07:30 04/17/20 07:57 Sodium Chloride 0.9% IV 04/18/20 07:29 30 mls/hr .Q24H DANNY Administration PFSH Anesthesia PFSH: Medical History (Updated 03/29/20 @ 15:56 by Melida Corral RN) Breast lump GERD (gastroesophageal reflux disease) Hypoglycemia Surgical History History of breast biopsy July 04 History of foot surgery History of lymphadenopathy Right axilla removal 08/01/19 History of tonsillectomy Family History Other Cancer Diabetes Denies family history of Anesthesia complication Bleeding disorder Social History Smoking and tobacco status: current every day smoker Second hand smoke exposure: No Smoking risk assessment/counseling performed?: No Alcohol intake: current Alcohol intake frequency: holidays/special occasions only Desire information about alcohol rehabilitation?: No Counseling given: No Desire information about substance/drug rehabilitation?: No Counseling given: No Adopted: No Caregiver/support person: No Lives independently: Yes Household members: children and none Housing: House Marital status: Single Number of children: 2 service: No Current occupational status: employed Current occupation: [employer] History of recent travel: No Current gender identity: Female Data Anesthesia Other Labs: Laboratory Results - last 48 hr 04/17/20 07:47 Urine HCG, Qual Negative Cardiac Studies: No Data to Display
--- NOTE | 2020-04-17 09:12 | W.PM.OPSUD ---
Surgery/Procedure H&P Update DATE OF PROCEDURE: April 17, 2020 DATE H&P PERFORMED: 03/28/20 H&P UPDATE INFORMATION: I have reviewed H&P completed within last 30 days, I have examined patient prior to procedure and No changes to prior documentation PREOP DIAGNOSIS: Change in bowel habits and bloating PRIMARY INDICATION FOR PROCEDURE: The same PLANNED PROCEDURE: Operation Date: 04/17/20 08:30 Proposed Procedures p EGD/Colon 53794 K21.9(Not Applicable) - Colt Tatum MD s Colonoscopy 51243 K59.00(Not Applicable) - Colt Tatum MD
[2020-04-17 10:18] VITALS: BP 100/64; PULSE 68; RESP 16; TEMP 36.2; O2SAT 100
[2020-04-17 10:45] VITALS: BP 103/70; PULSE 68; RESP 18; O2SAT 97
--- NOTE | 2020-04-17 11:09 | ANE.PACU2 ---
Inpatient post-anesthesia follow up: Airway intact: Yes Vital signs: Temperature 97.2 F Pulse Rate 68 Respiratory Rate 18 Blood Pressure 103/70 Pulse Oximetry 97 Oxygen Delivery Me thod Room Air Oxygen Flow Rate 2 Fraction of Inspir ed Oxygen Hydration adequate: Yes Nausea and vomiting: No Pain level: 2 Mental status: Baseline
[2020-04-18 05:57] LABS: H. Pylori / CLO Test Negative
== END 2020-04-17 10:49 | disposition home or self-care (01) ==
PROVIDERS: Anesthesiology; PCP Nurse Practitioner; Visit Provider Surgery
PROC: 0DJ08ZZ Inspection of Upper Intestinal Tract, Via Natural or Artificial Opening Endoscopic (ICD-10-PCS; CPT 43235; principal; 2020-04-17 08:30)
PROC: 0DJD8ZZ Inspection of Lower Intestinal Tract, Via Natural or Artificial Opening Endoscopic (ICD-10-PCS; CPT 45378; 2020-04-17 08:30)
DX: R19.4 Change in bowel habit (principal); R14.0 Abdominal distension (gaseous); K29.70 Gastritis, unspecified, without bleeding; F17.210 Nicotine dependence, cigarettes, uncomplicated
CPT/HCPCS: 12345; 43239; 45378; 84703; 87077; 88305; J2704; J7030

== ENCOUNTER 2020-04-19 10:13 | Outpatient (CLI) | payer MEDICAID, SELFPAY ==
--- NOTE | 2020-04-19 10:15 | US_ITS ---
WS: [id number] ULTRASOUND ABDOMEN LIMITED CLINICAL INFORMATION: ABDOMINAL PAIN COMPARISON: None. FINDINGS: Liver Size: Enlarged Craniocaudal length: 18.5 cm. Echogenicity: Coarse Surface nodularity: None. Mass (size and location): None. Bile ducts Intrahepatic ducts: Normal. Common bile duct diameter: 0.4 cm. Gallbladder Normal. Gallstones: None. Gallbladder sludge: None. Gallbladder wall thickening: None. Pericholecystic fluid: None. Sonographic Evans sign: Absent. Pancreas Normal as visualized. Right kidney: Normal. Hydronephrosis: None. Size: 10.2 cm x 4.3 cm x 3.9 cm. Abdominal aorta and IVC Visualized portions are normal. Ascites: None. US/US gall bladder [id number] IMPRESSION: 1. Hepatomegaly with diffuse fatty infiltration. 2. Normal gallbladder and common bile duct. 3. No hydronephrosis in right kidney.
== END 2020-04-19 10:14 | disposition home or self-care (01) ==
LOC: RAD 10:20
PROVIDERS: PCP Nurse Practitioner; Visit Provider Surgery
DX: R10.9 Unspecified abdominal pain (principal); K76.0 Fatty (change of) liver, not elsewhere classified; R16.0 Hepatomegaly, not elsewhere classified
CPT/HCPCS: 76705

== ENCOUNTER 2020-04-30 08:03 | Outpatient (CLI) | payer MEDICAID, SELFPAY ==
--- NOTE | 2020-04-30 08:07 | NM_ITS ---
WS: [id number] NUCLEAR MEDICINE HIDA SCAN WITH GALLBLADDER EJECTION FRACTION HISTORY: R10.9 - Unspecified abdominal pain COMPARISON: 04/19/2020 TECHNIQUE: The patient was intravenously injected with 8.1 mCi of TC99m Mebrofenin. Immediate imaging over the right upper quadrant was followed by 5 minute image and additional images for a total of 60 minutes. Liver is enlarged but there is normal uptake throughout with only mild heterogeneity. Activity identified in the gallbladder at 15 minutes and well distended by 60 minutes. Activity in the proximal small bowel was seen by 30 minutes. Good washout of the radiotracer from the liver by 60 minutes. The patient then drank 8 ounces of Ensure Plus. Ejection fraction at 60 minutes was 92%. Normal GB ej ection fraction is 35-75%. Post fatty meal symptoms: None. NM/NM hepatobiliary w phar* [id number] IMPRESSION: 1. Normal HIDA scan. 2. Normal gallbladder ejection fraction. 3. Hepatomegaly.
== END 2020-04-30 08:04 | disposition home or self-care (01) ==
LOC: RAD 08:05
PROVIDERS: PCP Nurse Practitioner; Visit Provider Surgery
DX: R10.9 Unspecified abdominal pain (principal)
CPT/HCPCS: 78227; A9537

== ENCOUNTER 2020-11-06 12:59 | Outpatient (CLI) | payer MEDICAID, SELFPAY ==
--- NOTE | 2020-11-06 13:00 | XR_ITS ---
WS: [id number] RIGHT ANKLE: 3 VIEW(S) TECHNIQUE: AP, oblique(s) and lateral. HISTORY: M79.671 - Pain in right foot COMPARISON: 04/19/2019 Prior fixation hardware in the calcaneus. No lucency around the screws. There is mild flattening of t he normal arch of the foot with increasing sclerosis along the subtalar calcaneus. No fragmentation o r acute fracture. The ankle appears intact. XR/XR ankle RT min 3V* [id number] IMPRESSION: 1. ORIF RIGHT calcaneus intact. 2. Increasing sclerosis with loss of the normal contour of the subtalar calcan eus. Suggest osteonecrosis. No fragmentation.
--- NOTE | 2020-11-06 13:15 | XR_ITS ---
WS: [id number] LEFT KNEE: 3 VIEW(S) TECHNIQUE: AP, oblique(s) and lateral. HISTORY: M25.562 - Pain in left knee COMPARISON: None available. No fracture or dislocation. No joint space narrowing or osteophytes. No joint effusion. No soft tissue abnormality. XR/XR knee LT 3V* [id number] IMPRESSION: Normal LEFT knee.
== END 2020-11-06 13:00 | disposition home or self-care (01) ==
PROVIDERS: PCP Nurse Practitioner; Visit Provider Nurse Practitioner Family
DX: M79.671 Pain in right foot (principal); M25.562 Pain in left knee; G89.29 Other chronic pain
CPT/HCPCS: 73562; 73610

== ENCOUNTER → 2020-12-03 13:24 | Outpatient (BNVA) | payer MEDICAID, SELFPAY | PROVIDERS: PCP Nurse Practitioner; Visit Provider Podiatrist Foot & Ankle Surgery | DX: M79.673 Pain in unspecified foot (principal); G43.909 Migraine, unspecified, not intractable, without status migrainosus | CPT/HCPCS: 73630 ==

== ENCOUNTER 2020-12-20 10:09 | Outpatient (CLI) | payer MEDICAID, SELFPAY ==
--- NOTE | 2020-12-20 10:15 | XR_ITS ---
WS: [id number] Lumbar spine with flexion, extension, and neutral lateral, 12/20/2020 Clinical Data: LOW BACK PAIN Comparison: Lumbar spine, 09/14/2018. Findings: No compression fractures or subluxation is seen. No disc space narrowing is seen. No limitation of motion or subluxation is seen. XR/XR lumbar spine f/e only [id number] Impression: Negative lateral lumbar spine.
== END 2020-12-20 10:10 | disposition home or self-care (01) ==
PROVIDERS: PCP Nurse Practitioner; Visit Provider Nurse Practitioner
DX: M54.5 Low back pain (principal)
CPT/HCPCS: 72120

== ENCOUNTER 2021-01-10 09:28 | Outpatient (CLI) | payer MEDICAID, SELFPAY ==
--- NOTE | 2021-01-10 09:33 | MR_ITS ---
WS: [id number] MRI LUMBAR SPINE NONCONTRAST HISTORY: LOW BACK PAIN COMPARISON: None available. TECHNIQUE: Sagittal and axial multisequence imaging is submitted. Mild straightening of the normal lumbar lordosis. Disc spaces and vertebral body heights are well-preserved. Conus terminates normally at L1-2 disc level. L1-L2: Normal. L2-L3: Normal. L3-L4: Very mild ligamentum flavum hypertrophy with a small amount of fluid in the facet joints. No s tenosis. L4-L5: Mild annular disc bulging and very mild ligamentum flavum hypertrophy. Mild bilateral facet lilo int arthritis is causing mild encroachment into the foramina. Mild bilateral foraminal stenosis. Ther e is mild disc contact on the RIGHT L4 nerve root. L5-S1: Normal. MR/MR lumbar spine wo con* [id number] IMPRESSION: 1. Mild disc bulging and ligamentum flavum hypertrophy at L4-5. 2. Very mild disc contact on the RIGHT L4 nerve root at L4-5. 3. No high-grade stenosis.
== END 2021-01-10 09:29 | disposition home or self-care (01) ==
LOC: RADSHAW 09:31
PROVIDERS: PCP Nurse Practitioner; Visit Provider Nurse Practitioner
DX: M51.26 Other intervertebral disc displacement, lumbar region (principal)
CPT/HCPCS: 72148

== ENCOUNTER → 2021-04-02 08:52 | Outpatient (BNVA) | payer MEDICAID, SELFPAY | PROVIDERS: PCP Nurse Practitioner; Visit Provider Nurse Practitioner Family | DX: R59.0 Localized enlarged lymph nodes (principal) | CPT/HCPCS: 80053; 85025 ==

== ENCOUNTER 2021-04-30 13:01 | Outpatient (CLI) | payer MEDICAID, SELFPAY ==
--- NOTE | 2021-04-30 14:30 | CT_ITS ---
WS: [id number] CT ABDOMEN PELVIS TECHNIQUE: Contrast-enhanced CT of the abdomen and pelvis with coronal and sagittal reformatted image s. CLINICAL INFORMATION: R59.0 - Localized enlarged lymph nodes COMPARISON: CT February 01, 2020 DLP: 1041.[address] scans at [facility] use at least one of these dose optimization techniques: automated e xposure control; mA and/or kV adjustment per patient size (includes targeted exams where dose is matc hed to clinical indication); or iterative reconstruction. FINDINGS: Diffuse fatty infiltration liver. Hepatomegaly. Normal spleen. Normal GE junction. Lung bases are wel l aerated. Adrenal glands are normal. Normal renal parenchymal enhancement. No hydronephrosis. Gallbl adder is contracted. Portal vein and splenic vein. Normal pancreatic parenchymal enhancement. Normal caliber abdominal aorta. Normal sigmoid colon. No evidence of small or large bowel obstruction. Urine distended bladder. Previ ously described prominent lymph nodes in the right lower quadrant have resolved. Normal caliber abdom inal aorta. No inguinal lymphadenopathy. No pelvic lymphadenopathy. Normal lumbar spine. No visualize d pars defects. CT/CT abdomen pelvis w con* [id number] IMPRESSION: 1. Hepatomegaly with diffuse fatty infiltration of the liver appears unchanged . 2. No free fluid in the abdomen or pelvis. 3. No adenopathy in the abdomen or pelvis. Previously described right lower qu adrant lymph nodes have resolved. 4. Normal appendix. 5. No inguinal lymphadenopathy. 6. No other significant findings and no other significant changes from previou s.
== END 2021-04-30 13:02 | disposition home or self-care (01) ==
PROVIDERS: PCP Nurse Practitioner; Visit Provider Nurse Practitioner Family
DX: R59.0 Localized enlarged lymph nodes (principal); R10.30 Lower abdominal pain, unspecified; R14.0 Abdominal distension (gaseous); R16.0 Hepatomegaly, not elsewhere classified; K76.0 Fatty (change of) liver, not elsewhere classified
CPT/HCPCS: 74177

== ENCOUNTER 2021-05-21 08:49 | Outpatient (CLI) | payer MEDICAID, SELFPAY ==
--- NOTE | 2021-05-21 08:53 | US_ITS ---
WS: [id number] BILATERAL DIGITAL DIAGNOSTIC MAMMOGRAM MAMMOGRAPHY WITH CAD CLINICAL INFORMATION: N63.10 - Unspecified lump in the right breast, unspecifie... COMPARISON: June 09, 2019 TECHNIQUE: Bilateral CC, MLO, and ML views. FINDINGS: The breasts are composed of heterogeneous fibroglandular density, which can limit the detection of sm all underlying mass lesions. No suspicious mammographic abnormality is the upper outer right breast. Left breast is unchanged and unremarkable. Ultrasound is pending of the area of concern. ULTRASOUND BREAST RIGHT TECHNIQUE: Ultrasound right breast focused area of concern. CLINICAL INFORMATION: N63.10 - Unspecified lump in the right breast, unspecifie... . FINDINGS: Ultrasound right breast. Complex cyst with internal debris at the 7:00 position measuring 4 x 4 by 3 mm. Small hypoechoic complex cystic or solid lesion at the 9:00 position measuring 4 x 5 x 6 mm with inte rnal echogenicity. This lesion is indeterminant and recommend further evaluation with ultrasound-guid ed biopsy/aspiration. Incidental ductal ectasia posterior to the nipple. US/US breast RT limited* [id number] IMPRESSION: BI-RADS: 4-Suspicious Finding-Biopsy Should Be Considered FOLLOW UP: US Guided Biopsy Recommended Recommend ultrasound-guided biopsy/aspiration of the hypoechoic nodule at the 9 :00 position described above.
--- NOTE | 2021-05-21 09:00 | MM_ITS ---
WS: [id number] BILATERAL DIGITAL DIAGNOSTIC MAMMOGRAM MAMMOGRAPHY WITH CAD CLINICAL INFORMATION: N63.10 - Unspecified lump in the right breast, unspecifie... COMPARISON: June 09, 2019 TECHNIQUE: Bilateral CC, MLO, and ML views. FINDINGS: The breasts are composed of heterogeneous fibroglandular density, which can limit the detection of sm all underlying mass lesions. No suspicious mammographic abnormality is the upper outer right breast. Left breast is unchanged and unremarkable. Ultrasound is pending of the area of concern. ULTRASOUND BREAST RIGHT TECHNIQUE: Ultrasound right breast focused area of concern. CLINICAL INFORMATION: N63.10 - Unspecified lump in the right breast, unspecifie... . FINDINGS: Ultrasound right breast. Complex cyst with internal debris at the 7:00 position measuring 4 x 4 by 3 mm. Small hypoechoic complex cystic or solid lesion at the 9:00 position measuring 4 x 5 x 6 mm with inte rnal echogenicity. This lesion is indeterminant and recommend further evaluation with ultrasound-guid ed biopsy/aspiration. Incidental ductal ectasia posterior to the nipple. MM/[place] [id number] IMPRESSION: BI-RADS: 4-Suspicious Finding-Biopsy Should Be Considered FOLLOW UP: US Guided Biopsy Recommended Recommend ultrasound-guided biopsy/aspiration of the hypoechoic nodule at the 9 :00 position described above.
== END 2021-05-21 08:50 | disposition home or self-care (01) ==
LOC: RADSHAW 08:52
PROVIDERS: PCP Nurse Practitioner; Visit Provider Nurse Practitioner Family
DX: N63.15 Unspecified lump in the right breast, overlapping quadrants (principal); N64.4 Mastodynia
CPT/HCPCS: 76642; 77066

== ENCOUNTER 2021-06-11 08:59 | Outpatient (CLI) | payer MEDICAID, SELFPAY ==
--- NOTE | 2021-06-11 09:11 | US_ITS ---
WS: [id number] ULTRASOUND-GUIDED RIGHT BREAST BIOPSY HISTORY: RIGHT breast mass. COMPARISON: 05/21/2021, 06/09/2019 Procedure, risks and complications are explained to the patient. Medications are reviewed. Consent is obtained. The mass in the RIGHT breast is localized with ultrasound. Mass localizes to 9:00. Skin is cleansed w ith ChloraPrep and anesthetized with 1% buffered lidocaine. Small dermatome is made. Under sterile co nditions mass is biopsied with a 14-gauge Achieve needle. Multiple core biopsies are performed. Mater ial placed in formalin and sent to pathology for review. No complications encountered. Breast tissue marker (Crunchbutton ultrasound enhanced ribbon): None Patient left the radiology suite with no complications. Patient is instructed to return to [facility] or [facility] with any concerns. US/[place] [id number] IMPRESSION: 1. Uncomplicated core needle biopsy RIGHT breast mass at 9:00. Mass completely collapses after the first biopsy. PATHOLOGY: Benign breast tissue with fibrocystic changes. No malignancy. RECOMMENDATION: Return to annual screening mammography.
== END 2021-06-11 09:00 | disposition home or self-care (01) ==
LOC: RAD 09:08
PROVIDERS: PCP Nurse Practitioner; Visit Provider Nurse Practitioner Family
DX: N63.10 Unspecified lump in the right breast, unspecified quadrant (principal)
CPT/HCPCS: 19083; 88305

== ENCOUNTER → 2021-08-26 10:33 | Outpatient (BNVA) | payer MEDICAID, SELFPAY | PROVIDERS: PCP Nurse Practitioner; Visit Provider Nurse Practitioner Family | DX: R10.9 Unspecified abdominal pain (principal); N39.0 Urinary tract infection, site not specified; R31.9 Hematuria, unspecified | CPT/HCPCS: 74018; 81000; 87086 ==

== ENCOUNTER 2021-12-13 13:02 | Emergency (ER) | payer MEDICAID, SELFPAY ==
[2021-12-13 13:10] VITALS: BP 124/72; PULSE 67; RESP 14; TEMP 37.3; O2SAT 98
[2021-12-13 13:14] VITALS: BP 124/72; PULSE 67; RESP 14; TEMP 37.3; O2SAT 98
--- NOTE | 2021-12-13 13:14 | USR_ITS ---
PROCEDURE INFORMATION: Exam: US First Trimester, Transabdominal and US , Transvaginal Exam date and time: 12/13/2021 1:27 PM Age: 36 years old Clinical indication: Lmp or gestational age (in weeks): 12 weeks; Antepartum complications; Bleeding; ; Additional info: Vag bleeding TECHNIQUE: Imaging protocol: Real-time transabdominal obstetrical ultrasound of the maternal pelvis and a first trimester , less than 14 weeks 0 days, with image documentation. Transvaginal imaging was used for better evaluation of the fetus, adnexa, and/or cervix. COMPARISON: CT abdomen pelvis w con* [id number] 04/30/2021 2:11 PM FINDINGS: Gestation: Gestational sac measures 3.8 cm. pole not visualized. Embryonic/ heart rate: Not applicable Extra-embryonic membranes/Placenta: Unremarkable. No subchorionic bleed. Amniotic fluid: Amniotic fluid and extra-amniotic fluid is normal for gestational age. BIOMETRY: Gestational age (AUA): Not applicable MATERNAL: Uterus: Unremarkable. Cervix: Unremarkable. Right ovary/adnexa: Unremarkable ovary. Left ovary/adnexa: Unremarkable ovary. Intraperitoneal space: No intraperitoneal free fluid. US/US OB <=14 wk fetus w transvag IMPRESSION: Gestational sac measures 3.8 cm without a pole visualized. This is consistent with an anembryonic .
[2021-12-13 14:17] LABS: Add Urine Microscopic? NO; Charge for UA Resulting for Rev
[2021-12-13 14:19] LABS: Basophils # 0.1 10^3/uL (0.0-0.1); Basophils % 0.6 %; Eosinophils # 0.1 10^3/uL (0.0-0.8); Eosinophils % 0.6 %; Hematocrit 42.1 % (37.0-47.0); Hemoglobin 13.7 g/dL (11.5-15.3); Lymphocytes # 3.1 10^3/uL (0.8-4.8); Lymphocytes % 33.1 %; Mean Corpuscular HGB Conc 32.5 g/dL (30.0-36.0); Mean Corpuscular Hemoglobin 31.5 pg (28.0-34.0); Mean Corpuscular Volume 96.8 fl (81-99); Mean Platelet Volume 9.8 fL (7.4-10.4); Monocytes # 0.5 10^3/uL (0.2-0.9); Neutrophils # 5.71 10^3/uL (1.8-7.7); Neutrophils % 60.4 %; Nucleated Red Blood Cells % 0 %; Platelet Count 195 10^3/cmm (130-400); Red Blood Count 4.35 10^6/uL (4.1-5.3); Red Cell Distribution Width 12.7 % (12.1-15.1); White Blood Count 9.5 10^3/uL (4.0-10.0)
[2021-12-13 14:27] LABS: Bilirubin Urine Neg (Negative); Blood Urine Neg (Negative); Glucose Urine UA Norm (Normal); Ketones Urine Negative (Negative); Leukocyte Esterase Urine Negative (Negative); Nitrate Urine Negative (Negative); Protein Urine Neg (Negative); Specific Gravity, Urine 1.005 (1.005-1.030); Urine Appearance Clear (CLEAR); Urine Color Yellow (Yellow); Urobilinogen Urine Norm (Negative); pH Urine 6 (5-7)
--- NOTE | 2021-12-13 14:32 | ED_ITS ---
HPI - General Adult General: Chief complaint: Vaginal Bleeding Stated complaint: 12wk preg. bleeding/cramping Time Seen by Provider: 12/13/21 13:14 History of Present Illness: Patient is a 36-year-old female at 12 weeks by LMP follow-up with Dr. Villalpando presenting to the emergency room for evaluation of vaginal bleeding and pelvic cramps for 1 day. Patient tells me that she began developing pelvic cramps yesterday afternoon followed by spotting. Patient denies any heavy vaginal bleeding or passage of clots. Patient denies any regular contractions. Patient decided to come to the emergency room to evaluate to make sure that her baby is okay. Patient has not had an ultrasound prior to this point. Denies any new vaginal discharge, dysuria, hematuria or polyuria. Patient has no abdominal complaints, nausea/vomiting fever/chills, cough, runny nose sore throat, chest pain, short of breath or palpitation. Onset: 1 day ago Duration:1 day Location:home Severity:mild/moderate Associated symptoms: Deny chest pain, dyspnea, nausea, rash, palpitations or vomiting Review of Systems Const: Denies: fever(s) or chills Eyes: Denies: change in vision ENMT: Denies: mouth pain Card: Denies: chest pain or palpitations Resp: Denies: dyspnea or non-productive cough GI: Denies: abdominal pain, nausea, vomiting or diarrhea : Reports: other (+vaginal bleeding/pelvic cramps); Denies: dysuria Musc: Denies: extremity pain Skin/Breast: Denies: rash or new lesions Neuro: Denies: weakness in extremities Psych: Reports: other (Normal mood) Otis/Lymph: Denies: easy bruising PFSH ED PFSH: Medical History Breast lump GERD (gastroesophageal reflux disease) Hypoglycemia Surgical History History of breast biopsy July 04 History of foot surgery History of lymphadenopathy Right axilla removal 08/01/19 History of tonsillectomy Family History Other Cancer Diabetes Denies family history of Anesthesia complication Bleeding disorder Social History Smoking and tobacco status: current every day smoker Second hand smoke exposure: No Smoking risk assessment/counseling performed?: No Alcohol intake: current Alcohol intake frequency: holidays/special occasions only Desire information about alcohol rehabilitation?: No Counseling given: No Desire information about substance/drug rehabilitation?: No Counseling given: No Adopted: No Caregiver/support person: No Lives independently: Yes Household members: children and none Housing: House Marital status: Single Number of children: 2 service: No Current occupational status: employed Current occupation: [employer] History of recent travel: No Current gender identity: Female Female Reproductive History: : 3 Physical Exam Const: COMMON NORMALS: alert HENMT: COMMON NORMALS: atraumatic HEAD & SCALP: atraumatic MOUTH: moist mucous membranes not abnormal Eye: COMMON NORMALS: EOMs intact bilaterally and conjunctivae normal CONJUNCTIVA: Yes conjunctivae normal Neck/C-Spine: COMMON NORMALS: full ROM and supple Resp: COMMON NORMALS: normal respiratory effort and clear to auscultation bilaterally AUSCULTATION: clear to auscultation bilaterally Cardio: COMMON NORMALS: regular rate RATE: regular rate GI: COMMON NORMALS: Soft to palpation and non-tender PALPATION: Yes Soft to palpation Extremity: COMMON NORMALS: full ROM Neuro: SENSORIUM/ORIENTATION: Yes alert MOTOR EXAM: No Abnormal motor strength present and Other motor observations present (no focal motor deficits) Psych: COMMON NORMALS: speech normal SPEECH: Yes normal speech MOOD & AFFECT: Yes euthymic mood Course Vital Signs: Vital signs: Vital Signs Temperature 97.9 F 12/13/21 16:13 Pulse Rate 64 12/13/21 16:13 Respiratory Rate 14 12/13/21 13:14 Blood Pressure 104/65 12/13/21 16:13 Pulse Oximetry 100 12/13/21 16:13 MDM - General Adult Medical Decision Making 36-year-old female at 12 weeks by LMP presenting to the emergency room for vaginal bleeding and pelvic cramps. On exam, patient is hemodynamically stable. Follow-up for pelvic exam however patient declined this time. Present did not confirm IUP. No visible adnexal mass to suggest ectopic . Patient has a beta-hCG of 5K. H&H appears to be stable at 13.7. Patient is Rh- and was given rhogam. I discussed this with Dr. Casey who r ecommended having patient follow-up in 3 days to decide whether patient has a miscarriage, ectopic , or of unknown location. Dr. Casey does not recommend giving methotrexate at this time. Patient is aware of appointment in 48-72 hrs for repeat hCG. Rx tylenol PRN pain Disposition: Discharge. Patient counseled regarding diagnostic impression, treatment plan. Patient given ED strict return precautions to return for continuation, worsening, or development of new symptoms. Instructed to f/u w/ Dr. Villalpando regarding symptoms today. Patient verbalized understanding. Lab Data : 12/13/21 14:07 12/13/21 14:07 Radiology Impressions Obstetrics Ultrasound 12/13/21 13:14 IMPRESSION: Gestational sac measures 3.8 cm without a pole visualized. This is consistent with an anembryonic . Laboratory Results WBC 9.5 10^3/uL (4.0-10.0) 12/13/21 14:07 RBC 4.35 10^6/uL (4.1-5.3) 12/13/21 14:07 Hgb 13.7 g/dL (11.5-15.3) 12/13/21 14:07 Hct 42.1 % (37.0-47.0) 12/13/21 14:07 MCV 96.8 fl (81-99) 12/13/21 14:07 MCH 31.5 pg (28.0-34.0) 12/13/21 14:07 MCHC 32.5 g/dL (30.0-36.0) 12/13/21 14:07 RDW 12.7 % (12.1-15.1) 12/13/21 14:07 Plt Count 195 10^3/cmm (130-400) 12/13/21 14:07 MPV 9.8 fL (7.4-10.4) 12/13/21 14:07 Neut % (Auto) 60.4 % 12/13/21 14:07 Lymph % (Auto) 33.1 % 12/13/21 14:07 Coke % (Auto) 5.0 % 12/13/21 14:07 Eos % (Auto) 0.6 % 12/13/21 14:07 Baso % (Auto) 0.6 % 12/13/21 14:07 Neut # (Auto) 5.71 10^3/uL (1.8-7.7) 12/13/21 14:07 Lymph # (Auto) 3.1 10^3/uL (0.8-4.8) 12/13/21 14:07 Coke # (Auto) 0.5 10^3/uL (0.2-0.9) 12/13/21 14:07 Eos # (Auto) 0.1 10^3/uL (0.0-0.8) 12/13/21 14:07 Baso # (Auto) 0.1 10^3/uL (0.0-0.1) 12/13/21 14:07 Nucleated RBC % (auto) 0 % 12/13/21 14:07 Nucleated RBCs # 0.0 /100WBC 12/13/21 14:07 Sodium 139 mmol/L (136-145) 12/13/21 14:07 Potassium 4.4 mmol/L (3.5-5.1) 12/13/21 14:07 Chloride 103 mmol/L (98-107) 12/13/21 14:07 Carbon Dioxide 27 mmol/L (22-29) 12/13/21 14:07 Anion Gap 13.4 (5-19) 12/13/21 14:07 BUN 6 mg/dL (6-20) 12/13/21 14:07 Creatinine 0.6 mg/dL (0.5-0.9) 12/13/21 14:07 GFR Calculation 112.5 mL/min (90-130) 12/13/21 14:07 Glucose 76 mg/dL (65-115) 12/13/21 14:07 Calculated Osmolality 284 mOsm/kg (285-295) L 12/13/21 14:07 Calcium 9.2 mg/dL (8.5-10.5) 12/13/21 14:07 Total Bilirubin 0.2 mg/dL (0.15-1.2) 12/13/21 14:07 AST 12 U/L (0-32) 12/13/21 14:07 ALT 9 U/L (0-33) 12/13/21 14:07 Alkaline Phosphatase 65 IU/L (35-105) 12/13/21 14:07 Total Protein 7.1 g/dL (6.6-8.7) 12/13/21 14:07 Albumin 4.5 g/dL (3.5-5.2) 12/13/21 14:07 Globulin 2.6 g/dL (1.3-4.6) 12/13/21 14:07 Lipase 19 U/L (13-60) 12/13/21 14:07 Ser , Semi-Qnt 5379.00 mIU/mL 12/13/21 14:07 Urine Color Yellow (Yellow) 12/13/21 14:07 Urine Appearance Clear (CLEAR) 12/13/21 14:07 Urine pH 6 (5-7) 12/13/21 14:07 Ur Specific [place] 1.005 (1.005-1.030) 12/13/21 14:07 Urine Protein Neg (Negative) 12/13/21 14:07 Urine Glucose (UA) Norm (Normal) 12/13/21 14:07 Urine Ketones Negative (Negative) 12/13/21 14:07 Urine Blood Neg (Negative) 12/13/21 14:07 Urine Nitrate Negative (Negative) 12/13/21 14:07 Urine Bilirubin Neg (Negative) 12/13/21 14:07 Urine Urobilinogen Norm mg/dL (Negative) 12/13/21 14:07 Ur Leukocyte Esterase Negative (Negative) 12/13/21 14:07 Blood Type O Negative 12/13/21 15:03 Rho(D) Type Negative 12/13/21 15:03 Antibody Screen Negative 12/13/21 15:03 Discharge Plan Discharge Patient Disposition: Home Clinical Impression: Vaginal bleeding, , of unknown anatomic location Condition: Stable Prescriptions: New acetaminophen 500 mg tablet 500 mg PO Q6H PRN (Reason: pain) 5 Days Qty: 20 0RF No Action etonogestrel-ethinyl estradiol [NuvaRing] 0.12-0.015 mg/24 hr ring See Rx Instructions .ROUTE .COMPLEX 0RF Rx Instructions: NUVA RIGHT PLACED EVERY THREE WEEKS. cholecalciferol (vitamin D3) 5,000 unit tablet,disintegrating 5,000 unit PO DAILY Qty: 30 0RF venlafaxine [Effexor XR] 75 mg capsule,extended release 24hr 75 mg PO DAILY Qty: 30 5RF nitrofurantoin monohyd/m-cryst [Macrobid] 100 mg capsule 100 mg PO Q12H 7 Days Qty: 14 0RF Rx Instructions: must administer with a meal/food mecobalamin (vitamin B12) 5,000 mcg tablet,disintegrating 5,000 mcg PO DAILY Qty: 30 5RF pantoprazole 40 mg tablet,delayed release (DR/EC) See Rx Instructions .ROUTE .COMPLEX Qty: 30 2RF Dose Instruction: TAKE ONE TABLET BY MOUTH DAILY Rx Instructions: TAKE ONE TABLET BY MOUTH DAILY tramadol [Ultram] 50 mg tablet 50 mg PO Q4H PRN (Reason: pain) 7 Days Qty: 42 0RF tramadol 50 mg tablet 50 mg PO Q6H PRN (Reason: pain) Qty: 42 0RF ondansetron HCl [Zofran] 4 mg tablet 4 mg PO Q8H Qty: 20 0RF Discharge Orders: Discharge ED (Routine); Ordered 12/13/21 Ordered By: Jacqueline Murray Referrals: Daysi Haro, [facility] [Primary Care Provider] - Discharge Diet: Advance as tolerated Discharge Activity: Increase activity as tolerated Patient Instructions: Threatened Miscarriage (ED) Activity Restrictions/Additional Instructions: Please come back in the next 48 to 72 hours to repeat your blood work to ensure to check on the status of your hCG. Come back to the emergency have any severe pain or vaginal bleeding. Coding Level of Care Code ED Car Coupler for Briseida Fwseun Exam Comprehensive
[2021-12-13 14:37] LABS: Alanine Aminotransferase 9 U/L (0-33); Albumin Level 4.5 g/dL (3.5-5.2); Alkaline Phosphatase 65 IU/L (35-105); Anion Gap 13.4 (5-19); Aspartate Amino Transferase 12 U/L (0-32); Blood Urea Nitrogen 6 mg/dL (6-20); Calcium 9.2 mg/dL (8.5-10.5); Carbon Dioxide 27 mmol/L (22-29); Chloride 103 mmol/L (98-107); Globulin 2.6 g/dL (1.3-4.6); Glomerular Filtration Rate 112.5 mL/min (90-130); Glucose 76 mg/dL (65-115); Lipase 19 U/L (13-60); Osmolality Calculated 284 mOsm/kg (285-295); Potassium 4.4 mmol/L (3.5-5.1); Sodium 139 mmol/L (136-145); Total Bilirubin 0.2 mg/dL (0.15-1.2); Total Protein 7.1 g/dL (6.6-8.7)
[2021-12-13 16:13] VITALS: BP 104/65; PULSE 64; TEMP 36.6; O2SAT 100
== END 2021-12-13 16:51 | disposition home or self-care (01) ==
PROVIDERS: Emergency Provider Emergency Medicine; PCP Nurse Practitioner
DX: O46.91 Antepartum hemorrhage, unspecified, first trimester (principal); Z3A.12 12 weeks gestation of pregnancy; O99.331 Smoking (tobacco) complicating pregnancy, first trimester; F17.210 Nicotine dependence, cigarettes, uncomplicated
CPT/HCPCS: 36430; 76801; 76817; 80053; 81003; 83690; 84702; 85025; 86850; 86900; 90384; 99284

== ENCOUNTER 2021-12-16 10:47 | Emergency (ER) | payer MEDICAID, SELFPAY ==
[2021-12-16 11:39] VITALS: BP 100/66; PULSE 63; RESP 14; TEMP 36.4; O2SAT 99
--- NOTE | 2021-12-16 11:51 | W.ED.GENADLT ---
HPI - General Adult General: Chief complaint: Recheck/Abnormal Lab/Rx Stated complaint: was asked to come back for followup Time Seen by Provider: 12/16/21 11:42 History of Present Illness: Patient is a 36-year-old female at 12 weeks by LMP presenting to the emergency room for repeat beta-hCG. 3 days ago, patient had vaginal spotting has beta-hCG of 5K. Patient tells me that she has had further bleeding since 3 days ago. Patient has intermittent cramps without contractions. Patient denies any abdominal pain, vomiting, new vaginal discharge, dysuria or polyuria. Patient is no diarrhea, melena/hematochezia. Of note, 3 days ago the patient was in the emergency room, she had an indeterminant ultrasound which did not show an IUP. Onset: 4 days [place] Duration:4 days Location:home Severity:moderate Associated symptoms: Deny chest pain, dyspnea, nausea, rash, palpitations or vomiting Review of Systems Const: Denies: fever(s) or chills Eyes: Denies: change in vision ENMT: Denies: mouth pain Card: Denies: chest pain or palpitations Resp: Denies: dyspnea or non-productive cough GI: Denies: abdominal pain, nausea, vomiting or diarrhea : Reports: other (+vaginal bleeding/pelvic cramps); Denies: dysuria Musc: Denies: extremity pain Skin/Breast: Denies: rash or new lesions Neuro: Denies: weakness in extremities Psych: Reports: other (Normal mood) [place]/Lymph: Denies: easy bruising PFS ED PFSH: Medical History Breast lump GERD (gastroesophageal reflux disease) Hypoglycemia Surgical History History of breast biopsy July 04 History of foot surgery History of lymphadenopathy Right axilla removal 08/01/19 History of tonsillectomy Family History Other Cancer Diabetes Denies family history of Anesthesia complication Bleeding disorder Social History Smoking and tobacco status: current every day smoker Second hand smoke exposure: No Smoking risk assessment/counseling performed?: No Alcohol intake: current Alcohol intake frequency: holidays/special occasions only Desire information about alcohol rehabilitation?: No Counseling given: No Desire information about substance/drug rehabilitation?: No Counseling given: No Adopted: No Caregiver/support person: No Lives independently: Yes Household members: children and none Housing: House Marital status: Single Number of children: 2 service: No Current occupational status: employed Current occupation: [employer] History of recent travel: No Current gender identity: Female Physical Exam Const: COMMON NORMALS: alert HENMT: COMMON NORMALS: atraumatic HEAD & SCALP: atraumatic MOUTH: moist mucous membranes not abnormal Eye: COMMON NORMALS: EOMs intact bilaterally and conjunctivae normal CONJUNCTIVA: Yes conjunctivae normal Neck/C-Spine: COMMON NORMALS: full ROM and supple Resp: COMMON NORMALS: normal respiratory effort and clear to auscultation bilaterally AUSCULTATION: clear to auscultation bilaterally Cardio: COMMON NORMALS: regular rate RATE: regular rate GI: COMMON NORMALS: Soft to palpation PALPATION: Yes Soft to palpation OTHER: No focal TTP. NO guarding rebound, guarding, rigidity. No CVA tenderness to percussion. Neg Evans/Neg McBurney's point tenderness, no suprabupic tenderness to palpation. Extremity: COMMON NORMALS: full ROM Neuro: SENSORIUM/ORIENTATION: Yes alert MOTOR EXAM: No Abnormal motor strength present and Other motor observations present (no focal motor deficits) Psych: COMMON NORMALS: speech normal SPEECH: Yes normal speech MOOD & AFFECT: Yes euthymic mood Course Vital Signs: Vital signs: Vital Signs Temperature 97.5 F L 12/16/21 11:39 Pulse Rate 63 12/16/21 11:39 Respiratory Rate 14 12/16/21 11:39 Blood Pressure 100/66 12/16/21 11:39 Pulse Oximetry 99 12/16/21 11:39 MDM - General Adult Medical Decision Making 36-year-old female at 12 weeks [place] presenting to the emergency room for concerns of elevated beta-hCG without visualization of for repeat beta-hCG. On exam, he is hemodynamic stable without any focal abdominal tenderness palpation. Pelvic exam deferred per request of patient. Repeat beta-hCG is 3K down from 5K this is most consistent with miscarriage. I discussed case with Dr. Cruz who agrees. Patient is to follow-up closely with her OB provider. Patient received RhoGAM last time. Disposition: Discharge. Patient counseled regarding diagnostic impression, treatment plan. Patient given ED strict return precautions to return for continuation, worsening, or development of new symptoms. Instructed to f/u w/ PCP/OB regarding symptoms today. Patient verbalized understanding. Lab Data : 12/16/21 11:50 12/16/21 11:50 Laboratory Results WBC 8.3 10^3/uL (4.0-10.0) 12/16/21 11:50 RBC 4.25 10^6/uL (4.1-5.3) 12/16/21 11:50 Hgb 13.3 g/dL (11.5-15.3) 12/16/21 11:50 Hct 39.7 % (37.0-47.0) 12/16/21 11:50 MCV 93.4 fl (81-99) 12/16/21 11:50 MCH 31.3 pg (28.0-34.0) 12/16/21 11:50 MCHC 33.5 g/dL (30.0-36.0) 12/16/21 11:50 RDW 12.6 % (12.1-15.1) 12/16/21 11:50 Plt Count 186 10^3/cmm (130-400) 12/16/21 11:50 MPV 10.2 fL (7.4-10.4) 12/16/21 11:50 Neut % (Auto) 60.0 % 12/16/21 11:50 Lymph % (Auto) 33.2 % 12/16/21 11:50 [place] % (Auto) 4.9 % 12/16/21 11:50 Eos % (Auto) 0.7 % 12/16/21 11:50 Baso % (Auto) 1.0 % 12/16/21 11:50 Neut # (Auto) 4.98 10^3/uL (1.8-7.7) 12/16/21 11:50 Lymph # (Auto) 2.8 10^3/uL (0.8-4.8) 12/16/21 11:50 [place] # (Auto) 0.4 10^3/uL (0.2-0.9) 12/16/21 11:50 Eos # (Auto) 0.1 10^3/uL (0.0-0.8) 12/16/21 11:50 Baso # (Auto) 0.1 10^3/uL (0.0-0.1) 12/16/21 11:50 Nucleated RBC % (auto) 0 % 12/16/21 11:50 Nucleated RBCs # 0.0 /100WBC 12/16/21 11:50 Sodium 139 mmol/L (136-145) 12/16/21 11:50 Potassium 4.2 mmol/L (3.5-5.1) 12/16/21 11:50 Chloride 102 mmol/L (98-107) 12/16/21 11:50 Carbon Dioxide 27 mmol/L (22-29) 12/16/21 11:50 Anion Gap 14.2 (5-19) 12/16/21 11:50 BUN 8 mg/dL (6-20) 12/16/21 11:50 Creatinine 0.6 mg/dL (0.5-0.9) 12/16/21 11:50 GFR Calculation 112.5 mL/min (90-130) 12/16/21 11:50 Glucose 96 mg/dL (65-115) 12/16/21 11:50 Calculated Osmolality 286 mOsm/kg (285-295) 12/16/21 11:50 Calcium 8.7 mg/dL (8.5-10.5) 12/16/21 11:50 Total Bilirubin 0.4 mg/dL (0.15-1.2) 12/16/21 11:50 AST 11 U/L (0-32) 12/16/21 11:50 ALT 9 U/L (0-33) 12/16/21 11:50 Alkaline Phosphatase 71 IU/L (35-105) 12/16/21 11:50 Total Protein 7.1 g/dL (6.6-8.7) 12/16/21 11:50 Albumin 4.4 g/dL (3.5-5.2) 12/16/21 11:50 Globulin 2.7 g/dL (1.3-4.6) 12/16/21 11:50 Lipase 17 U/L (13-60) 12/16/21 11:50 Ser , Semi-Qnt 3644.00 mIU/mL 12/16/21 11:50 Discharge Plan Discharge Patient Disposition: Home Clinical Impression: Vaginal bleeding Condition: Stable Prescriptions: No Action etonogestrel-ethinyl estradiol [NuvaRing] 0.12-0.015 mg/24 hr ring See Rx Instructions .ROUTE .COMPLEX 0RF Rx Instructions: NUVA RIGHT PLACED EVERY THREE WEEKS. cholecalciferol (vitamin D3) 5,000 unit tablet,disintegrating 5,000 unit PO DAILY Qty: 30 0RF venlafaxine [Effexor XR] 75 mg capsule,extended release 24hr 75 mg PO DAILY Qty: 30 5RF nitrofurantoin monohyd/m-cryst [Macrobid] 100 mg capsule 100 mg PO Q12H 7 Days Qty: 14 0RF Rx Instructions: must administer with a meal/food mecobalamin (vitamin B12) 5,000 mcg tablet,disintegrating 5,000 mcg PO DAILY Qty: 30 5RF pantoprazole 40 mg tablet,delayed release (DR/EC) See Rx Instructions .ROUTE .COMPLEX Qty: 30 2RF Dose Instruction: TAKE ONE TABLET BY MOUTH DAILY Rx Instructions: TAKE ONE TABLET BY MOUTH DAILY tramadol [Ultram] 50 mg tablet 50 mg PO Q4H PRN (Reason: pain) 7 Days Qty: 42 0RF tramadol 50 mg tablet 50 mg PO Q6H PRN (Reason: pain) Qty: 42 0RF ondansetron HCl [Zofran] 4 mg tablet 4 mg PO Q8H Qty: 20 0RF acetaminophen 500 mg tablet 500 mg PO Q6H PRN (Reason: pain) 5 Days Qty: 20 0RF Discharge Orders: Discharge ED (Routine); Ordered 12/16/21 Ordered By: Jacqueline Murray Referrals: Daysi Haro, SENIOR [employer]ROLL SPECIALIST-C [Primary Care Provider] - Discharge Diet: Advance as tolerated Discharge Activity: Increase activity as tolerated Patient Instructions: Miscarriage (ED) Activity Restrictions/Additional Instructions: Come back if you have any significant bleeding, abdominal pain, nausea/vomiting fever/chills, or any new concerning complaints. Coding Level of Care Code ED [employer] Reviewer for [employer] Fwd Exam Comprehensive
[2021-12-16 11:56] LABS: Basophils # 0.1 10^3/uL (0.0-0.1); Eosinophils # 0.1 10^3/uL (0.0-0.8); Eosinophils % 0.7 %; Hematocrit 39.7 % (37.0-47.0); Hemoglobin 13.3 g/dL (11.5-15.3); Lymphocytes # 2.8 10^3/uL (0.8-4.8); Lymphocytes % 33.2 %; Mean Corpuscular HGB Conc 33.5 g/dL (30.0-36.0); Mean Corpuscular Hemoglobin 31.3 pg (28.0-34.0); Mean Corpuscular Volume 93.4 fl (81-99); Mean Platelet Volume 10.2 fL (7.4-10.4); Monocytes # 0.4 10^3/uL (0.2-0.9); Monocytes % 4.9 %; Neutrophils # 4.98 10^3/uL (1.8-7.7); Nucleated Red Blood Cells % 0 %; Platelet Count 186 10^3/cmm (130-400); Red Blood Count 4.25 10^6/uL (4.1-5.3); Red Cell Distribution Width 12.6 % (12.1-15.1); White Blood Count 8.3 10^3/uL (4.0-10.0)
[2021-12-16 12:15] LABS: Alanine Aminotransferase 9 U/L (0-33); Albumin Level 4.4 g/dL (3.5-5.2); Alkaline Phosphatase 71 IU/L (35-105); Anion Gap 14.2 (5-19); Aspartate Amino Transferase 11 U/L (0-32); Blood Urea Nitrogen 8 mg/dL (6-20); Calcium 8.7 mg/dL (8.5-10.5); Carbon Dioxide 27 mmol/L (22-29); Chloride 102 mmol/L (98-107); Globulin 2.7 g/dL (1.3-4.6); Glomerular Filtration Rate 112.5 mL/min (90-130); Glucose 96 mg/dL (65-115); Lipase 17 U/L (13-60); Osmolality Calculated 286 mOsm/kg (285-295); Potassium 4.2 mmol/L (3.5-5.1); Sodium 139 mmol/L (136-145); Total Bilirubin 0.4 mg/dL (0.15-1.2); Total Protein 7.1 g/dL (6.6-8.7)
[2021-12-16 12:44] VITALS: BP 109/67; PULSE 61; RESP 14; O2SAT 98
== END 2021-12-16 12:45 | disposition home or self-care (01) ==
PROVIDERS: Emergency Provider Emergency Medicine; PCP Nurse Practitioner
DX: O46.91 Antepartum hemorrhage, unspecified, first trimester (principal); Z3A.12 12 weeks gestation of pregnancy; O99.331 Smoking (tobacco) complicating pregnancy, first trimester; F17.210 Nicotine dependence, cigarettes, uncomplicated
CPT/HCPCS: 80053; 83690; 84702; 85025; 99283

== ENCOUNTER → 2022-01-12 11:32 | Outpatient (BNVA) | payer MEDICAID, SELFPAY | PROVIDERS: PCP Nurse Practitioner; Visit Provider Nurse Practitioner Family | DX: R05.9 Cough, unspecified (principal) | CPT/HCPCS: 71046; 85025 ==

== ENCOUNTER 2022-01-20 13:12 | Emergency (ER) | payer MEDICAID, SELFPAY ==
[2022-01-20 13:19] VITALS: BP 148/82; PULSE 80; RESP 19; TEMP 36.2; O2SAT 99; BMI 20.7
--- NOTE | 2022-01-20 15:36 | ED_ITS ---
HPI - General Adult General: Chief complaint: General Medical Stated complaint: Numbness in arm Time Seen by Provider: 01/20/22 14:54 Source: patient Mode of arrival: ambulatory Limitations: no limitations History of Present Illness: Patient is a 36-year-old female here for multiple medical complaints. She begins by telling me around 3 AM this morning she woke up with complaints of varying paresthesias to her upper and lower extremities. States she felt like her limbs were asleep. She states the paresthesias alternated from her lower legs that are now completely resolved. She states the paresthesia to her left arm has also resolved but she continues to have altered sensation to her right arm. She continually tells me I just do not feel good . She states yesterday at work she was having a headache and a racing heart rate with positional changes. She states she has had mental fog and cognitive slowing. She does report a history of COVID 3 weeks ago and states I just have not felt good since . She reports a previous history of diffuse lymphadenopathy and reportedly has had necrotic lymph nodes removed from one of her axillary regions. She states she feels like her vision is off . She does wear glasses and states it has been approximately two years since her last optometry examination. Patient has not noticed any extremity weakness, slurred speech, facial drooping or deficits. She does report having a blighted ovum few months ago and has had intermittent vaginal bleeding since then. She does not complain of any abdominal or pelvic pain. She also wonders if her psychiatric medications could be causing her symptoms as she got back on Lexapro two months ago. Onset (ago): unknown (chronicity changes based on complaint) Associated symptoms: Reports palpitations (feels like heart is racing); Deny chest pain, dyspnea, malaise, nausea, rash, syncope or vomiting Treatments prior to arrival: none Review of Systems Const: Reports: fatigue; Denies: fever(s), chills, body aches or malaise Eyes: Reports: change in vision; Denies: blurry vision, photophobia, floaters or seeing flashes ENMT: Denies: throat pain, odynophagia, nasal discharge, nasal congestion, post nasal drip or sinus pain Card: Reports: palpitations (feels like heart is racing) and pre-syncope; Denies: chest pain, irregular heart rhythm, edema, swelling of feet/ankles, lightheadedness, syncope, dyspnea on exertion, orthopnea, leg pain with exertion or acrocyanosis Resp: Denies: dyspnea, productive cough, non-productive cough, wheezing, pain on inspiration, hemoptysis or chest congestion GI: Denies: abdominal pain, nausea, vomiting, heartburn or diarrhea : Denies: flank pain, difficulty voiding, dysuria, urinary frequency or urinary urgency Musc: Denies: neck pain, back pain, extremity pain or joint pain Skin/Breast: Denies: rash Neuro: Reports: numbness in extremities and other (reports mental fog ); Denies: weakness in extremities, lack of coordination, difficulty walking, frequent falls, vertigo, behavioral changes, Slurred speech present or seizure- like activity PFSH ED PFSH: Medical History Breast lump GERD (gastroesophageal reflux disease) Hypoglycemia Surgical History History of breast biopsy July 04 History of foot surgery History of lymphadenopathy Right axilla removal 08/01/19 History of tonsillectomy Family History Other Cancer Diabetes Denies family history of Anesthesia complication Bleeding disorder Social History Smoking and tobacco status: current every day smoker Second hand smoke exposure: No Smoking risk assessment/counseling performed?: No Alcohol intake: current Alcohol intake frequency: holidays/special occasions only Desire information about alcohol rehabilitation?: No Counseling given: No Desire information about substance/drug rehabilitation?: No Counseling given: No Adopted: No Caregiver/support person: No Lives independently: Yes Household members: children and none Housing: House Marital status: Single Number of children: 2 service: No Current occupational status: employed Current occupation: [employer] History of recent travel: No Current gender identity: Female Physical Exam Const: COMMON NORMALS: no acute distress, average body habitus, patient oriented x3, no limitations, healthy appearing, alert and well nourished GENERAL APPEARANCE: cooperative and anxious ORIENTATION/CONSCIOUSNESS: Yes awake, Yes oriented to person, Yes oriented to place and Yes oriented to time HENMT: COMMON NORMALS: normocephalic and atraumatic HEAD & SCALP: normal to inspection, normocephalic and atraumatic FACE & SINUS: normal facial exam Neck/C-Spine: COMMON NORMALS: full ROM, no lymphadenopathy, supple and no meningeal signs Resp: COMMON NORMALS: normal respiratory effort and clear to auscultation bilaterally AUSCULTATION: clear to auscultation bilaterally Cardio: COMMON NORMALS: regular rate and regular rhythm RATE: regular rate RHYTHM: regular rhythm GI: COMMON NORMALS: Normal to inspection, nondistended, normoactive bowel s ounds present, Soft to palpation, non-tender, No hepatosplenomegaly present and no masses PALPATION: Yes Soft to palpation and Yes No hepatosplenomegaly present : COMMON NORMALS: Yes no CVA tenderness BLADDER/KIDNEY EXAM: Yes no CVA tenderness Back/Pelvis: COMMON NORMALS: no CVA tenderness, thoracic and lumbar spine normal to inspection, no thoracic nor lumbar tenderness and thoraco-lumbar ROM normal Extremity: COMMON NORMALS: normal to inspection, full ROM, capillary refill no rmal, no joint enlargement, no clubbing, cyanosis or edema, no calf tenderness and no pedal edema GENERAL: Yes normal exam except as noted Neuro: FILOMENA COMA SCALE: document GCS findings [place] coma scale eye opening: Spontaneous Filomena coma scale verbal response: Orientated [place] coma scale motor response: Obey commands [place] coma scale total score: 15 COMMON NORMALS: patient oriented x3, CN's II-XII intact bilaterally, moves all extremities, no focal motor deficits and gait normal SENSORIUM/ORIENTATION: Yes alert, Yes oriented to person, Yes oriented to place and Yes oriented to time MENINGEAL SIGNS: Yes no meningeal signs SPEECH: speech normal MOTOR EXAM: 5/5 motor strength present throughout OTHER: reports decreased sensation to R UE when compared to L Skin: COMMON NORMALS: no rashes or lesions noted GENERAL SKIN EXAM: no rashes or lesions noted Course Vital Signs: Vital signs: Vital Signs Temperature 97.2 F L 01/20/22 13:19 Pulse Rate 78 01/20/22 18:19 Respiratory Rate 16 01/20/22 18:19 Blood Pressure 109/71 01/20/22 18:19 Pulse Oximetry 98 01/20/22 18:19 Oxygen Delivery Me thod 01/20/22 18:19 [facility] - General Adult Medical Decision Making Patient's work-up from the emergency department is unremarkable. She has multiple medical complaints of varying chronicities. Her initial hCG qualitative was positive. hCG serum quant was 20.7. This is down from roughly 3400 last month. Patient was told last month she had an anembryonic with ponce pposed to follow-up with women's health but did not. She does report some scattered vaginal bleeding-nothing heavy and she is not having any abdominal or pelvic pain. He was encouraged to continue plan to follow-up with women's health in regards to this. He can also follow-up with PCP in regards to several of her other complaints Lab Data : 01/20/22 16:29 01/20/22 16: Radiology Impressions Chest X-Ray 01/20/22 15:37 IMPRESSION: No acute findings. Head CT 01/20/22 15:37 IMPRESSION: No acute intracranial abnormality. Laboratory Results WBC 10.6 10^3/uL (4.0-10.0) H 01/20/22 16: RBC 4.44 10^6/uL (4.1-5.3) 01/20/22 16: Hgb 14.1 g/dL (11.5-15.3) 01/20/22 16: Hct 44.3 % (37.0-47.0) 01/20/22: MCV 99.8 fl (81-99) H 01/20/22 16: MCH 31.8 pg (28.0-34.0) 01/20/22 16: MCHC 31.8 g/dL (30.0-36.0) 01/20/22: RDW 13.2 % (12.1-15.1) 01/20/22 16: Plt Count 164 10^3/cmm (130-400) 01/20/22: MPV 10.2 fL (7.4-10.4) 01/20/22: Neut % (Auto) 57.4 % 01/20/22: Lymph % (Auto) 33.4 % 01/20/22: [place] % (Auto) 6.1 % 01/20/22: Eos % (Auto) 2.0 % 01/20/22: Baso % (Auto) 0.8 % 01/20/22: Neut # (Auto) 6.08 10^3/uL (1.8-7.7) 01/20/22: Lymph # (Auto) 3.5 10^3/uL (0.8-4.8) 01/20/22: [place] # (Auto) 0.6 10^3/uL (0.2-0.9) 01/20/22: Eos # (Auto) 0.2 10^3/uL (0.0-0.8) 01/20/22: Baso # (Auto) 0.1 10^3/uL (0.0-0.1) 01/20/22: Nucleated RBC % (auto) 0 % 01/20/22 Nucleated RBCs # 0.0 /100WBC 01/20/22: Sodium 137 mmol/L (136-145) 01/20/22: Potassium 4.4 mmol/L (3.5-5.1) 01/20/22: Chloride 101 mmol/L (98-107) 01/20/22: Carbon Dioxide 29 mmol/L (22-29) 01/20/22: Anion Gap 11.4 (5-19) 01/20/22: BUN 10 mg/dL (6-20) 01/20/22: Creatinine 0.7 mg/dL (0.5-0.9) 01/20/22 GFR Calculation 94.2 mL/min (90-130) 01/20/22: Glucose 95 mg/dL (65-115) 01/20/22 Calculated Osmolality 283 mOsm/kg (285-295) L 01/20/22: Calcium 8.8 mg/dL (8.5-10.5) 01/20/22: Total Bilirubin 0.2 mg/dL (0.15-1.2) 01/20/22: AST 10 U/L (0-32) 01/20/22: ALT 8 U/L (0-33) 01/20/22: Alkaline Phosphatase 63 U/L (35-105) 08/16/22 16:29 Total Protein 6.7 g/dL (6.6-8.7) 01/20/22 16:29 Albumin 4.0 g/dL (3.5-5.2) 01/20/22 16: Globulin 2.7 g/dL (1.3-4.6) 01/20/22 16: TSH 0.94 uIU/mL (0.27-4.20) 01/20/22 16:29 HCG, Qual Positive (Negative) H 01/20/22 16:29 Ser , Semi-Qnt 20.73 mIU/mL 01/20/22 16:29 Urine Color Yellow (Yellow) 01/20/22 16:42 Urine Appearance Clear (CLEAR) 01/20/22 16:42 Urine pH 7 (5-7) 01/20/22 16:42 Ur Specific [place] 1.010 (1.005-1.030) 01/20/22 16:42 Urine Protein Neg (Negative) 01/20/22 16:42 Urine Glucose (UA) Norm (Normal) 01/20/22 16:42 Urine Ketones Negative (Negative) 01/20/22 16:42 Urine Blood Neg (Negative) 01/20/22 16:42 Urine Nitrate Negative (Negative) 01/20/22 16:42 Urine Bilirubin Neg (Negative) 01/20/22 16:42 Urine Urobilinogen Norm mg/dL (Negative) 01/20/22 16:42 Ur Leukocyte Esterase Negative (Negative) 01/20/22 16:42 Discharge Plan Discharge Patient Disposition: Home Clinical Impression: Multiple complaints Condition: Stable Prescriptions: No Action etonogestrel-ethinyl estradiol [NuvaRing] 0.12-0.015 mg/24 hr ring See Rx Instructions .ROUTE .COMPLEX Rx Instructions: NUVA RIGHT PLACED EVERY THREE WEEKS. cholecalciferol (vitamin D3) 5,000 unit tablet,disintegrating 5,000 unit PO DAILY Qty: 30 0RF venlafaxine [Effexor XR] 75 mg capsule,extended release 24hr 75 mg PO DAILY Qty: 30 5RF nitrofurantoin monohyd/m-cryst [Macrobid] 100 mg capsule 100 mg PO Q12H 7 Days Qty: 14 0RF Rx Instructions: must administer with a meal/food doxycycline hyclate 100 mg capsule 100 mg PO BID Qty: 14 0RF prednisone 10 mg tablets,dose pack See Rx Instructions PO PER PKG DIR Qty: 21 0RF Rx Instructions: PO PER PKG DIR may use loose pills albuterol sulfate [ProAir HFA] 90 mcg/actuation HFA aerosol inhaler 2 puff inhalation QID PRN (Reason: shortness of breath or wheezing) Qty: 6.7 0RF mecobalamin (vitamin B12) 5,000 mcg tablet,disintegrating 5,000 mcg PO DAILY Qty: 30 5RF pantoprazole 40 mg tablet,delayed release (DR/EC) See Rx Instructions .ROUTE .COMPLEX Qty: 30 2RF Dose Instruction: TAKE ONE TABLET BY MOUTH DAILY Rx Instructions: TAKE ONE TABLET BY MOUTH DAILY tramadol [Ultram] 50 mg tablet 50 mg PO Q4H PRN (Reason: pain) 7 Days Qty: 42 0RF tramadol 50 mg tablet 50 mg PO Q6H PRN (Reason: pain) Qty: 42 0RF ondansetron HCl [Zofran] 4 mg tablet 4 mg PO Q8H Qty: 20 0RF Discharge Orders: Discharge ED (Routine); Ordered 01/20/22 Ordered By: Tita Andino Referrals: Daysi Haro, CATECHIST-C [Primary Care Provider] - Activity Restrictions/Additional Instructions: As we discussed I did not find any emergent cause for several of your complaints today. I would like you to follow-up with primary care as soon as possible for further evaluation. We also discussed following up with women's health in regards to the vaginal bleeding so they can continue monitoring hCG levels. Coding Level of Care Code ED Night Time Nanny for Chg Fwd Exam Comprehensive
--- NOTE | 2022-01-20 15:37 | XRR_ITS ---
PROCEDURE INFORMATION: Exam: XR Chest Exam date and time: 01/20/2022 4:02 PM Age: 36 years old Clinical indication: Other: heart racing ; Additional info: heart racing TECHNIQUE: Imaging protocol: Radiologic exam of the chest. Views: 1 view. COMPARISON: CR XR chest 2V* [id number] 01/12/2022 11:31 AM FINDINGS: Lungs: Unremarkable. No consolidation. Pleural spaces: Unremarkable. No pleural effusion. No pneumothorax. Heart/Mediastinum: Unremarkable. No cardiomegaly. Bones/joints: Unremarkable. XR/XR chest 1V portable [id number] IMPRESSION: No acute findings.
--- NOTE | 2022-01-20 15:37 | CTR_ITS ---
PROCEDURE INFORMATION: Exam: CT Head Without Contrast Exam date and time: 01/20/2022 3:50 PM Age: 36 years old Clinical indication: Dizziness and numbness / parasthesia and visual disturbance; Right; Additional info: Foggy headed, paresthesias, visual changes TECHNIQUE: Imaging protocol: Computed tomography of the head without contrast. Radiation optimization: All CT scans at this facility use at least one of these dose optimization techniques: automated exposure control; mA and/or kV adjustment per patient size (includes targeted exams where dose is matched to clinical indication); or iterative reconstruction. COMPARISON: CR Cervical Spine AP/Lat* [id number] 09/14/2018 10:43 AM RADIATION DOSE METRICS: Total DLP (mGy-cm): 1044.78 FINDINGS: Brain: Normal. No hemorrhage. Unremarkable white matter. No mass effect. Cerebral ventricles: No ventriculomegaly. Paranasal sinuses: Visualized sinuses are unremarkable. No fluid levels. Mastoid air cells: Visualized mastoid air cells are well aerated. Bones/joints: Unremarkable. No acute fracture. Soft tissues: Unremarkable. CT/CT head wo con* [id number] IMPRESSION: No acute intracranial abnormality.
--- NOTE | 2022-01-20 15:38 | ECG_ITS ---
[facility] Test Date: 2022-01-20 Pat Name: Bety Mercer Department: Room: Gender: Female Field Professional: : 1985 Requested By: Tita Andino Order Number: [id number] Zac MD: Margarita Montoya M.D. Measurements Intervals Bly Rate: 66 P: 75 CO: 165 QRS: 88 QRSD: 99 T: 74 QT: 393 QTc: 412 Interpretive Statements SINUS RHYTHM INCOMPLETE RIGHT BUNDLE BRANCH BLOCK Compared to ECG 09/03/2018 13:52:32 No significant changes Electronically Signed On 01-20-2022 18:16:56 CDT by Margarita Montoya M.D. [id number]
[2022-01-20 16:41] VITALS: BP 102/66; BP 117/70; BP 123/75
[2022-01-20 16:43] VITALS: BP 102/66; PULSE 98; RESP 16; O2SAT 98
[2022-01-20 16:44] LABS: Basophils # 0.1 10^3/uL (0.0-0.1); Basophils % 0.8 %; Eosinophils # 0.2 10^3/uL (0.0-0.8); Hematocrit 44.3 % (37.0-47.0); Hemoglobin 14.1 g/dL (11.5-15.3); Lymphocytes # 3.5 10^3/uL (0.8-4.8); Lymphocytes % 33.4 %; Mean Corpuscular HGB Conc 31.8 g/dL (30.0-36.0); Mean Corpuscular Hemoglobin 31.8 pg (28.0-34.0); Mean Corpuscular Volume 99.8 fl (81-99); Mean Platelet Volume 10.2 fL (7.4-10.4); Monocytes # 0.6 10^3/uL (0.2-0.9); Monocytes % 6.1 %; Neutrophils # 6.08 10^3/uL (1.8-7.7); Neutrophils % 57.4 %; Nucleated Red Blood Cells % 0 %; Platelet Count 164 10^3/cmm (130-400); Red Blood Count 4.44 10^6/uL (4.1-5.3); Red Cell Distribution Width 13.2 % (12.1-15.1); White Blood Count 10.6 10^3/uL (4.0-10.0)
[2022-01-20 17:16] LABS: HCG, Serum Qual Positive (Negative)
[2022-01-20 17:30] LABS: Alanine Aminotransferase 8 U/L (0-33); Alkaline Phosphatase 63 U/L (35-105); Anion Gap 11.4 (5-19); Aspartate Amino Transferase 10 U/L (0-32); Blood Urea Nitrogen 10 mg/dL (6-20); Calcium 8.8 mg/dL (8.5-10.5); Carbon Dioxide 29 mmol/L (22-29); Chloride 101 mmol/L (98-107); Globulin 2.7 g/dL (1.3-4.6); Glomerular Filtration Rate 94.2 mL/min (90-130); Glucose 95 mg/dL (65-115); Osmolality Calculated 283 mOsm/kg (285-295); Potassium 4.4 mmol/L (3.5-5.1); Sodium 137 mmol/L (136-145); Thyroid Stimulating Hormone 0.94 uIU/mL (0.27-4.20); Total Bilirubin 0.2 mg/dL (0.15-1.2); Total Protein 6.7 g/dL (6.6-8.7)
[2022-01-20 17:38] LABS: Add Urine Microscopic? NO; Charge for UA Resulting for Rev
[2022-01-20 17:42] LABS: Bilirubin Urine Neg (Negative); Blood Urine Neg (Negative); Glucose Urine UA Norm (Normal); Ketones Urine Negative (Negative); Leukocyte Esterase Urine Negative (Negative); Nitrate Urine Negative (Negative); Protein Urine Neg (Negative); Urine Appearance Clear (CLEAR); Urine Color Yellow (Yellow); Urobilinogen Urine Norm (Negative); pH Urine 7 (5-7)
[2022-01-20 18:19] VITALS: BP 109/71; PULSE 78; RESP 16; O2SAT 98
[2022-01-20 18:34] LABS: HCG Quantitative 20.73 mIU/mL
== END 2022-01-20 18:53 | disposition home or self-care (01) ==
PROVIDERS: Emergency Provider Physician Assistant; PCP Nurse Practitioner
DX: R20.0 Anesthesia of skin (principal); F17.210 Nicotine dependence, cigarettes, uncomplicated
CPT/HCPCS: 36415; 70450; 71045; 80053; 81003; 84443; 84702; 84703; 85025; 93005; 99285

== ENCOUNTER 2022-02-25 06:00 | Day surgery (SDC) | payer MEDICAID, SELFPAY ==
[2022-02-25] MEDS: sodium chloride 0.9% 1,000 ML 30 ML IV (06:33)
--- NOTE | 2022-02-25 06:38 | ANES.PREANE2 ---
Pre-Anesthetic Assessment Height/Weight: Height 1.7 m Weight 59.874 kg O2 Del Method 02/25/22 06:24 Operation Date: 02/25/22 07:00 Proposed Procedures p Dilation And Curettage (D&C) O03.4(Not Applicable) - Jj Villalpando MD Last intake: Intake Last Liquid Date 02/24/22 Last Liquid Time 22:00 Last Solid Date 02/24/22 Last Solid Time 18:00 Medications/Allergies Home Medications Medication Instructions Recorded Confirmed Last Taken Type cholecalciferol (vitamin D3) 125 5,000 unit PO DAILY #30 tabs 08/23/19 02/25/22 02/24/22 Rx mcg (5,000 unit) disintegrating tablet mecobalamin (vitamin B12) 5,000 5,000 mcg PO DAILY #30 tabs 03/13/20 02/25/22 02/24/22 Rx mcg disintegrating tablet venlafaxine 75 mg capsule,extended 75 mg PO DAILY #30 caps 04/02/21 02/25/22 02/23/22 Rx release 24 hr (Effexor XR) albuterol sulfate 90 mcg/actuation 2 puff inhalation QID PRN 01/12/22 02/24/22 Unknown Rx aerosol inhaler (ProAir HFA) shortness of breath or wheezing #6.7 grams doxycycline hyclate 100 mg capsule 100 mg PO BID #14 caps 01/12/22 02/25/22 Unknown Rx fluticasone propionate 50 2 spray intranasal DAILY 12 months 02/06/22 02/24/22 Unknown Rx mcg/actuation nasal #16 grams spray,suspension hydrocodone 10 mg-acetaminophen 1 tab PO BID PRN Pain 02/06/22 02/25/22 02/25/22 History 325 mg tablet pantoprazole 40 mg tablet,delayed 40 mg PO DAILY 02/24/22 02/25/22 02/24/22 History release Allergies Allergy/AdvReac Type Severity Reaction Status Date / Time Penicillins Allergy Unknown Verified 02/06/22 10:11 Current Medications Generic Name Dose Route Start Last Admin Trade Name Freq PRN Reason Stop Dose Admin Sodium Chloride 1,000 mls @ 30 mls/hr 02/25/22 06:30 02/25/22 06:33 Sodium Chloride 0.9% IV 30 mls/hr .Q24H DANNY Administration PFSH Anesthesia Medical History Breast lump Change in bowel habit Enlarged lymph node GERD (gastroesophageal reflux disease) GERD (gastroesophageal reflux disease) Hypoglycemia Surgical History History of breast biopsy July 04 History of foot surgery History of lymphadenopathy Right axilla removal 08/01/19 History of tonsillectomy Family History Other Cancer Diabetes Denies family history of Anesthesia complication Bleeding disorder Social History Smoking and tobacco status: current every day smoker (half a pack) Second hand smoke exposure: No Smoking risk assessment/counseling performed?: No Alcohol intake: current Alcohol intake frequency: holidays/special occasions only Desire information about alcohol rehabilitation?: No Counseling given: No Desire information about substance/drug rehabilitation?: No Counseling given: No Adopted: No Caregiver/support person: No Lives independently: Yes Household members: children and none Housing: House Marital status: Single Number of children: 2 service: No Current occupational status: employed Current occupation: [employer] History of recent travel: No Current gender identity: Female Data Anesthesia Cardiac Studies: No Data to Display
--- NOTE | 2022-02-25 06:38 | W.PM.OPSUD ---
Surgery/Procedure H&P Update DATE OF PROCEDURE: February 25, 2022 DATE H&P PERFORMED: 02/18/22 CHANGES TO PREVIOUS DOCUMENTATION: None PREOP DIAGNOSIS: Change in bowel habits and bloating PRIMARY INDICATION FOR PROCEDURE: Missed PLANNED PROCEDURE: Operation Date: 02/25/22 07:00 Proposed Procedures p Dilation And Curettage (D&C) O03.4(Not Applicable) - Jj Villalpando MD Related Problem List Diagnoses (1) Missed with demise before 20 completed weeks of gestation: I once again discussed the procedure with the patient and her partner. We discussed the risks of bleeding and uterine perforation. They had no further questions and wished to proceed.
--- NOTE | 2022-02-25 06:45 | ANES.PREANE2 ---
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) and Tobacco Exam alert, oriented x 3, clear to auscultation bilaterally and regular rate & rhythm Airway Mallampati: Class III Dentition: chipped Pulmonary Asthma GI Gastroesophageal Reflux Disease Anesthetic Plan ASA status: 2 Anesthesia: General Risk of > 500 ml blood loss (7ml/kg in children): No Medications/Allergies Home Medications Medication Instructions Recorded Confirmed Last Taken Type cholecalciferol (vitamin D3) 125 5,000 unit PO DAILY #30 tabs 08/23/19 02/25/22 02/24/22 Rx mcg (5,000 unit) disintegrating tablet mecobalamin (vitamin B12) 5,000 5,000 mcg PO DAILY #30 tabs 03/13/20 02/25/22 02/24/22 Rx mcg disintegrating tablet venlafaxine 75 mg capsule,extended 75 mg PO DAILY #30 caps 04/02/21 02/25/22 02/23/22 Rx release 24 hr (Effexor XR) albuterol sulfate 90 mcg/actuation 2 puff inhalation QID PRN 01/12/22 02/24/22 Unknown Rx aerosol inhaler (ProAir HFA) shortness of breath or wheezing #6.7 grams doxycycline hyclate 100 mg capsule 100 mg PO BID #14 caps 01/12/22 02/25/22 Unknown Rx fluticasone propionate 50 2 spray intranasal DAILY 12 months 02/06/22 02/24/22 Unknown Rx mcg/actuation nasal #16 grams spray,suspension hydrocodone 10 mg-acetaminophen 1 tab PO BID PRN Pain 02/06/22 02/25/22 02/25/22 History 325 mg tablet pantoprazole 40 mg tablet,delayed 40 mg PO DAILY 02/24/22 02/25/22 02/24/22 History release Allergies Allergy/AdvReac Type Severity Reaction Status Date / Time Penicillins Allergy Unknown Verified 02/06/22 10:11 Current Medications Generic Name Dose Route Start Last Admin Trade Name Bryson PRN Reason Stop Dose Admin Sodium Chloride 1,000 mls @ 30 mls/hr 02/25/22 06:30 02/25/22 06:33 Sodium Chloride 0.9% IV 30 mls/hr .Q24H DANNY Administration PFSH Anesthesia Medical History Breast lump Change in bowel habit Enlarged lymph node GERD (gastroesophageal reflux disease) GERD (gastroesophageal reflux disease) Hypoglycemia Surgical History History of breast biopsy July 04 History of foot surgery History of lymphadenopathy Right axilla removal 08/01/19 History of tonsillectomy Family History Other Cancer Diabetes Denies family history of Anesthesia complication Bleeding disorder Social History Smoking and tobacco status: current every day smoker (half a pack) Second hand smoke exposure: No Smoking risk assessment/counseling performed?: No Alcohol intake: current Alcohol intake frequency: holidays/special occasions only Desire information about alcohol rehabilitation?: No Counseling given: No Desire information about substance/drug rehabilitation?: No Counseling given: No Adopted: No Caregiver/support person: No Lives independently: Yes Household members: children and none Housing: House Marital status: Single Number of children: 2 service: No Current occupational status: employed Current occupation: [employer] History of recent travel: No Current gender identity: Female Data Anesthesia Cardiac Studies: No Data to Display
--- NOTE | 2022-02-25 07:44 | PM.OP ---
Operative Report Date of procedure: February 25, 2022 Pre-op diagnosis: 1. Missed spontaneous Post-op diagnosis: Same Procedure done: Dilation and curettage Specimens removed/disposition: Products of conception Pathology: Products of conception Surgeon: Jj Villalpando Estimated blood loss (mL): 20 Complications: None Findings: Products of conception Procedure: The patient was brought back to the operating room where she was placed under general anesthesia. After being placed in the dorsolithotomy position she was prepped and draped in usual fashion. Her bladder was drained. A weighted speculum was then placed. A tenaculum was placed on the anterior lip of the cervix. A sound was then used to assess the depth of the intrauterine cavity. The cervix was then dilated the usual manner. The intrauterine cavity was then carefully curettaged first with a metal curette, and then with a follow-up suction using a 9 curved suction curette. I then followed up again with a metal curette and found that she had an excellent uterine cry in all 4 quadrants. The tenaculum was then removed. No bleeding was noted. The patient was in stable condition. There was minimal bleeding throughout the procedure.
[2022-02-25 07:45] VITALS: BP 143/69; PULSE 92; RESP 12; TEMP 36.4; O2SAT 98
[2022-02-25 07:50] VITALS: BP 143/69; PULSE 89; RESP 16; O2SAT 98
[2022-02-25 07:55] VITALS: BP 117/81; PULSE 90; RESP 16; O2SAT 97
[2022-02-25 07:59] VITALS: BP 125/68; PULSE 89; RESP 16; TEMP 36.4; O2SAT 98
[2022-02-25 08:00] VITALS: BP 121/62; PULSE 73; RESP 18; O2SAT 99
[2022-02-25 08:30] VITALS: BP 97/63; PULSE 63; RESP 18; O2SAT 100
[2022-02-25] MEDS: HYDROcodone-acetaminophen 10-325 mg Tablet 1 TAB PO (09:30)
--- NOTE | 2022-02-25 15:08 | ANE.PACU2 ---
Inpatient post-anesthesia follow up: Airway intact: Yes Vital signs: Temperature 97.5 F Pulse Rate 63 Respiratory Rate 18 Blood Pressure 97/63 Pulse Oximetry 100 Oxygen Delivery Me thod Room Air Oxygen Flow Rate 6 Fraction of Inspir ed Oxygen Hydration adequate: Yes Nausea and vomiting: No Pain level: 1 Mental status: Baseline
== END 2022-02-25 08:45 | disposition home or self-care (01) ==
PROVIDERS: PCP Nurse Practitioner; Visit Provider Family Medicine
PROC: (CPT 59820; principal; 2022-02-25 07:00)
DX: O02.1 Missed abortion (principal)
CPT/HCPCS: 59820; 12345; 51702; 88305; J1170; J2250; J2405; J2704; J3010; J3490; J7030

== ENCOUNTER 2022-07-27 08:48 | Outpatient (CLI) | payer MEDICAID, SELFPAY ==
--- NOTE | 2022-07-27 | US_ITS ---
WS: [id number] ULTRASOUND OB COMPLETE TECHNIQUE: Complete ultrasound. CLINICAL INFORMATION: MULTIGRAVIDA 2ND TRIMESTER COMPARISON: None. FINDINGS: Closed cervix measures 4.2 CM. Single interuterine gestation is identified with vertex presentation. Placenta is posterior. Placenta grade 0. Slightly low-lying placenta. Recommend 3rd trimester follow-up. Normal amniotic fluid volume. CHRISTOPH 13.2 cm cardiac activity: 133 BPM. AGA: 20w2d MARCOS by ultrasound: 12/12/2022 Estimated weight: 345 g; 0 lbs. 12 oz. BDP: 4.7 cm = 20w1d HC: 17.9 cm = 20w2d AC: 14.3 cm = 19w5d FEMUR LENGTH: 3.5 cm = 21w0d Anatomic survey: Anatomic survey is normal. Normal stomach. Kidneys and bladder are normal. Normal 3 vessel cord. Norm al 3 vessel cord insertion. Normal 4 chamber heart. Normal spine. Intracranial contents are normal. N ormal posterior fossa and cisterna magna. US/US OB >= 14 weeks fetus [id number] IMPRESSION: Cervix is long and closed. 1. Single intrauterine with visualized cardiac activity. AGA 20w2d w ith MARCOS 12/12/2022. 2. Slightly low-lying posterior placenta. Recommend 3rd trimester follow-up. 3. anatomic survey is normal. 4. Normal amniotic fluid volume.
== END 2022-07-27 08:49 | disposition home or self-care (01) ==
LOC: RAD 08:49
PROVIDERS: PCP Nurse Practitioner; Visit Provider Family Medicine
DX: O44.42 Low lying placenta NOS or without hemorrhage, second trimester (principal); Z3A.20 20 weeks gestation of pregnancy
CPT/HCPCS: 76805

== ENCOUNTER 2022-09-01 13:00 | Outpatient (CLI) | payer MEDICAID, SELFPAY ==
--- NOTE | 2022-09-01 13:06 | US_ITS ---
WS: [id number] ULTRASOUND BREAST BILATERAL TECHNIQUE: Ultrasound bilateral breast focused area of concern. CLINICAL INFORMATION: N64.4 - Mastodynia FINDINGS: Ultrasound performed bilaterally areas of pain RIGHT BREAST: Ultrasound RIGHT breast 9:00 and 10:00 position 6 cm from the nipple. Dense underlying parenchymal tissue. No cystic or solid lesions. No suspicious lesions to target for biopsy. LEFT BREAST: Ultrasound LEFT breast 4, 5 and 6:00 position 3 cm from the nipple. Dense underlying par enchymal tissue. No cystic or solid lesions. No suspicious lesions to target for biopsy. US/US breast BI complete [id number] IMPRESSION: BI-RADS 2 benign Recommend annual screening mammography age 40
== END 2022-09-01 13:01 | disposition home or self-care (01) ==
LOC: RAD 13:01
PROVIDERS: PCP Nurse Practitioner; Visit Provider Nurse Practitioner Family
DX: N64.4 Mastodynia (principal); Z87.898 Personal history of other specified conditions
CPT/HCPCS: 76641

== ENCOUNTER 2022-09-30 01:28 | Emergency (ER) | payer MEDICAID, SELFPAY ==
[2022-09-30 01:31] VITALS: BP 120/50; PULSE 95; RESP 18; TEMP 36.9; O2SAT 100; BMI 21.7
--- NOTE | 2022-09-30 01:31 | ED_ITS ---
HPI - Dental/Oral General: Chief complaint: Dental/Oral Stated complaint: tooth pain Time Seen by Provider: 09/30/22 01:30 History of Present Illness: 37-year-old female comes in today with left upper jaw pain. Patient reports dental pain starting last night. Patient has a broken off premolar that is tender with some mild swelling to the gingiva. No facial swelling is noted. Patient appears nontoxic. Patient is 28 weeks . Patient reports movement. Associated symptoms: Denies fever(s) Review of Systems General: Reports: 10 or more systems reviewed and unremarkable except in HPI and below Const: Denies: fever(s) ENMT: Reports: dental pain Card: Denies: chest pain GI: Denies: nausea : Denies: difficulty voiding PFSH ED PFSH: Medical History Axillary lymphadenopathy Breast lump Change in bowel habit Enlarged lymph node GERD (gastroesophageal reflux disease) GERD (gastroesophageal reflux disease) Hypoglycemia Surgical History History of breast biopsy July 04 History of foot surgery History of lymphadenopathy Right axilla removal 08/01/19 History of tonsillectomy Family History Other Cancer Diabetes Denies family history of Anesthesia complication Bleeding disorder Social History Smoking and tobacco status: current every day smoker Second hand smoke exposure: No Smoking risk assessment/counseling performed?: No Alcohol intake: current Alcohol intake frequency: holidays/special occasions only Desire information about alcohol rehabilitation?: No Counseling given: No Substance/Drug Use: unknown Desire information about substance/drug rehabilitation?: No Counseling given: No Adopted: No Caregiver/support person: No Lives independently: Yes Household members: children and none Housing: House Marital status: Single Number of children: 2 service: No Current occupational status: employed Current occupation: [employer] Do you think of yourself as: Straight/Heterosexual Current gender identity: Female Physical Exam Const: COMMON NORMALS: alert HENMT: COMMON NORMALS: normocephalic HEAD & SCALP: normocephalic Neck/C-Spine: COMMON NORMALS: full ROM Resp: COMMON NORMALS: normal respiratory effort and clear to auscultation bilaterally AUSCULTATION: clear to auscultation bilaterally Cardio: COMMON NORMALS: regular rate RATE: regular rate GI: COMMON NORMALS: Soft to palpation ( abdomen) PALPATION: Yes Soft to palpation ( abdomen) Extremity: COMMON NORMALS: no pedal edema Neuro: SENSORIUM/ORIENTATION: Yes alert Skin: COMMON NORMALS: turgor normal GENERAL SKIN EXAM: turgor normal Course Vital Signs: Vital signs: Vital Signs Temperature 98.4 F 09/30/22 01:31 Pulse Rate 95 09/30/22 01:31 Respiratory Rate 18 09/30/22 01:31 Blood Pressure 120/50 09/30/22 01:31 Pulse Oximetry 100 09/30/22 01:31 Oxygen Delivery Me thod Room Air 09/30/22 01:31 MDM - Dental/Oral Medical Decision Making 37-year-old female comes in with left upper jaw pain. On exam patient appears nontoxic. Patient appears in mild to moderate pain. Patient has a decayed tooth that is broken which is the first premolar on the left upper jaw. Surrounding gingival tissue is slightly erythematous. No significant swelling of the pharynx is noted. No asymmetry is noted of the posterior pharynx. Differential diagnosis includes but not limited to tooth ache, dental abscess, dental caries. Patient be started on clindamycin for good oral coverage. Patient was given a dose of hydrocodone in the emergency room for her pain. Patient was recommended to follow-up with dentist in the morning and primary care for refills on pain medicines. Discharge Plan Discharge Patient Disposition: Home Clinical Impression: Toothache Condition: Stable Prescriptions: New clindamycin HCl 300 mg capsule 300 mg PO TID 7 Days Qty: 21 0RF No Action cholecalciferol (vitamin D3) 5,000 unit tablet,disintegrating 5,000 unit PO DAILY Qty: 30 0RF venlafaxine [Effexor XR] 75 mg capsule,extended release 24hr 75 mg PO DAILY Qty: 30 5RF cephalexin 500 mg capsule 500 mg PO TID Qty: 30 0RF doxycycline hyclate 100 mg capsule 100 mg PO BID Qty: 14 0RF albuterol sulfate [ProAir HFA] 90 mcg/actuation HFA aerosol inhaler 2 puff inhalation QID PRN (Reason: shortness of breath or wheezing) Qty: 6.7 0RF hydrocodone-acetaminophen 10-325 mg tablet 1 tab PO BID PRN (Reason: Pain) fluticasone propionate 50 mcg/actuation spray,suspension 2 spray intranasal DAILY 360 Days Qty: 16 11RF Rx Instructions: administer into each nostril mecobalamin (vitamin B12) 5,000 mcg tablet,disintegrating 5,000 mcg PO DAILY Qty: 30 5RF pantoprazole 40 mg tablet,delayed release (DR/EC) 40 mg PO DAILY Rx Instructions: TAKE ONE TABLET BY MOUTH DAILY Discharge Orders: Discharge ED (Routine); Ordered 09/30/22 Ordered By: Jeronimo Martin Referrals: Daysi Haro, [employer] [Primary Care Provider] - Discharge Diet: Usual diet Discharge Activity: Increase activity as tolerated Patient Instructions: Toothache (ED) Activity Restrictions/Additional Instructions: Follow-up with dentist in the morning. Start antibiotic continue antibiotic 3 times a day for 7 days. Follow-up with primary care or pain post acute care nurse practitioner for alterations in your medication regimen. Continue routine medicines as directed. Coding Level of Care Code ED Carriage Feeder for Briseida Thrasher
[2022-09-30] MEDS: HYDROcodone-acetaminophen 10-325 mg Tablet 1 TAB PO (01:55)
[2022-09-30] MEDS: clindamycin 150 mg Capsule 300 MG PO (01:56)
[2022-09-30] MEDS: lidocaine 2% viscous 15 mL UDC 10 ML MUCOUS MEM (01:56)
[2022-09-30 02:03] VITALS: BP 126/70; PULSE 89; RESP 16; O2SAT 98
== END 2022-09-30 02:05 | disposition home or self-care (01) ==
PROVIDERS: Emergency Provider Nurse Practitioner Family; PCP Nurse Practitioner
DX: K08.89 Other specified disorders of teeth and supporting structures (principal); F17.210 Nicotine dependence, cigarettes, uncomplicated
CPT/HCPCS: 99283

== ENCOUNTER 2022-11-28 10:45 | Outpatient (CLI) | payer MEDICAID, SELFPAY ==
[2022-11-28 10:55] VITALS: TEMP 36.4
[2022-11-28 10:58] VITALS: BP 119/67; PULSE 74
[2022-11-28 11:18] VITALS: BP 96/68; PULSE 96
[2022-11-28 11:22] VITALS: BMI 23.0
[2022-11-28 11:33] LABS: Actim Prom Negative
[2022-11-28 11:38] VITALS: BP 103/60; PULSE 76
[2022-11-28 14:39] LABS: Nitrazine Paper, PH Negative
== END 2022-11-28 11:50 | disposition home or self-care (01) ==
LOC: OPOB 10:49 → OBGYN 10:50
PROVIDERS: PCP Nurse Practitioner; Visit Provider Family Medicine
DX: O47.1 False labor at or after 37 completed weeks of gestation (principal); Z3A.37 37 weeks gestation of pregnancy
CPT/HCPCS: 59025; 83986; 84112; 99211

== ENCOUNTER 2022-12-09 05:31 | Inpatient (IN) | payer MEDICAID, SELFPAY ==
[2022-12-09] VITALS (23 sets, daily range): BP systolic 87–144; BP diastolic 53–85; PULSE 62–99; RESP 16; TEMP 36.8–36.9; BMI 23.0
[2022-12-09 03:23] LABS: Nitrazine Paper, PH Positive
[2022-12-09 03:40] LABS: Basophils # 0.1 10^3/uL (0.0-0.1); Basophils % 0.6 %; Eosinophils # 0.1 10^3/uL (0.0-0.8); Eosinophils % 0.6 %; Hematocrit 37.9 % (37.0-47.0); Hemoglobin 12.7 g/dL (11.5-15.3); Lymphocytes # 2.3 10^3/uL (0.8-4.8); Lymphocytes % 22.8 %; Mean Corpuscular HGB Conc 33.5 g/dL (30.0-36.0); Mean Corpuscular Hemoglobin 31.8 pg (28.0-34.0); Mean Platelet Volume 11.4 fL (7.4-10.4); Monocytes # 0.6 10^3/uL (0.2-0.9); Neutrophils # 6.95 10^3/uL (1.8-7.7); Neutrophils % 69.6 %; Nucleated Red Blood Cells % 0 %; Platelet Count 158 10^3/cmm (130-400); Red Blood Count 3.99 10^6/uL (4.1-5.3); Red Cell Distribution Width 12.9 % (12.1-15.1)
[2022-12-09 03:50] LABS: Amphetamines Screen Urine Negative (Negative); Barbiturates Screen Urine Negative (Negative); Benzodiazepines Screen Urine Negative (Negative); Cocaine Screen Urine Negative (Negative); Opiate Screen Urine Positive (Negative); PCP Screen Urine Negative (Negative); THC Screen Urine Negative (Negative)
[2022-12-09] MEDS: dextrose 5%-lactated ringers 1,000 ML 125 ML IV (04:10)
[2022-12-09] MEDS: ceFAZolin 2,000 MG in sodium chloride 0.9% (plus) 50 ML 100 MG IV (04:10)
[2022-12-09] MEDS: fentaNYL 50 mcg/mL INJ 2mL IVP (05:22)
--- NOTE | 2022-12-09 06:26 | P.HPUD_ITS ---
Labor & Delivery H&P Update Date of Procedure: December 09, 2022 Date H&P Performed: 12/07/22 Admission Diagnosis: 4 para 2-0-1-2 at 39 weeks estimated stational age presenting with spontaneous rupture of membranes Planned procedure: Spontaneous vaginal delivery Other information: The patient is an otherwise healthy 37-year-old female at 39 weeks estimated ges tational age presenting with spontaneous rupture membranes. Upon arrival to hospital she was found to be nitrazine positive. She was also noted to have regular contractions. Her labs are relatively unremarkable. Her blood type was O-. Her antibody screen was negative. Her drug screen was positive for THC and opiates. Her 1 hour glucose screen was 180. She passed her 3-hour glucose screen. She was GBS positive. She is rubella immune. Related Problem List Diagnoses (1) 39 weeks gestation of : (2) Spontaneous rupture of membranes: (3) Group beta Strep positive: A&P Assessment and plan (1) 39 weeks gestation of : I anticipate a routine labor process. Status: Acute (2) Spontaneous rupture of membranes: Status: Acute (3) Group beta Strep positive: The patient will be placed on Ancef since her allergy only involved hives. Status: Acute
--- NOTE | 2022-12-09 07:02 | PM.DELIVERY ---
Delivery Note: Date of delivery: December 09, 2022 Pre-delivery diagnoses: 1. 37-year-old 4 para 2-0-1-2 at 39 weeks estimated gestational age presenting with spontaneous rupture membranes 2. Group B strep positive status Post-delivery diagnoses: Status post spontaneous vaginal delivery Procedure: Spontaneous vaginal delivery Delivering Physician: Jj Villalpando Estimated blood loss (mL): 50 Pre-Delivery Course: The patient presented to the hospital with spontaneous rupture of membranes and contractions. She was placed on group B strep protocol. She progressed to complete without difficulty. Delivery: DELIVERY: The patient progressed to complete without difficulty. She delivered a male with a weight of 6 pounds 14 ounces with Apgars of 8, 9. The baby was delivered from the TC position and placed on the mother's abdomen. The cord was then clamped and cut. There was no nuchal cord. There was no meconium. The placenta and 3 vessel cord were delivered intact shortly thereafter. The perineum and vaginal vault were carefully examined. No lacerations were noted. Both the mother and the baby were in stable condition. Post-Delivery Status: Good A&P Assessment and plan (1) Spontaneous vaginal delivery: I anticipate routine care. Due to inadequate treatment of GBS status, the mother and baby will be in the hospital for 48 hours. Coding Level of Care Code Acute Code for Chg Fwd Diagnoses Spontaneous vaginal delivery O80
[2022-12-09] MEDS: acetaminophen 325 mg Tablet 650 MG PO (07:16)
[2022-12-09] MEDS: ibuprofen 800 mg tablet PO ×3 (07:54→22:06)
[2022-12-09] MEDS: docusate sodium 100 mg Capsule PO ×2 (07:54→19:11)
[2022-12-09] MEDS: prenatal vitamin Capsule 1 CAP PO (07:54)
[2022-12-09] MEDS: HYDROcodone-acetaminophen 5-325 mg Tablet PO (12:27)
[2022-12-09 20:14] LABS: Hematocrit 33.6 % (37.0-47.0); Hemoglobin 11.1 g/dL (11.5-15.3); Mean Corpuscular Hemoglobin 32.5 pg (28.0-34.0); Mean Corpuscular Volume 98.2 fl (81-99); Mean Platelet Volume 11.4 fL (7.4-10.4); Platelet Count 150 10^3/cmm (130-400); Red Blood Count 3.42 10^6/uL (4.1-5.3); Red Cell Distribution Width 13.3 % (12.1-15.1); White Blood Count 14.9 10^3/uL (4.0-10.0)
[2022-12-10 00:45] VITALS: BP 104/55; PULSE 95
[2022-12-10 04:00] VITALS: BP 103/64; PULSE 89; RESP 16; TEMP 36.8; O2SAT 96
--- NOTE | 2022-12-10 08:00 | P.PN_ITS ---
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 Her bleeding has been minimal. Her pain is been well controlled. She has breast-fed and bottle-fed. Her breast-feeding is improving. She has no concerns. Labor: Station: +1 Amniotic Membrane Status: Ruptured Monitor Mode: External Contraction Pattern: Regular Vitals/I&O/Wt Last Vital Signs Temp 98.2 F 12/10/22 04:00 Pulse 89 12/10/22 04:00 Resp 16 12/10/22 04:00 BP 103/64 12/10/22 04:00 Pulse Ox 96 12/10/22 04:00 O2 Del Method Room Air 12/10/22 04:00 Weight last 48 hrs Weight 156 lb Weight 156 lb Physical Exam Narrative: The patient is alert. She appears comfortable. Her heart has a regular rate and rhythm with no murmurs appreciated. Lungs are clear to auscultation bilaterally. Her fundus is firm and below the umbilicus. Data 12/09/22 20:00 A&P Assessment and plan (1) Spontaneous vaginal delivery: The patient is doing very well. Anticipate we will discharge the patient home tomorrow. There are no concerns at this time. Attestations Medical Necessity Statement*: Routine post vaginal delivery care Coding Level of Care Code Acute Code for Chg Fwd Diagnoses Spontaneous vaginal delivery O80
[2022-12-10] MEDS: docusate sodium 100 mg Capsule PO (08:51)
[2022-12-10] MEDS: ibuprofen 800 mg tablet PO ×3 (08:51→21:49)
[2022-12-10] MEDS: prenatal vitamin Capsule 1 CAP PO (08:51)
[2022-12-10 09:00] VITALS: BP 106/68; PULSE 70; RESP 15; TEMP 36.6; O2SAT 97
[2022-12-10 16:06] VITALS: BP 114/54; PULSE 75; RESP 14; O2SAT 97
[2022-12-10] MEDS: HYDROcodone-acetaminophen 5-325 mg Tablet PO (21:49)
[2022-12-10 22:00] VITALS: BP 108/67; PULSE 66; RESP 16; TEMP 36.8; O2SAT 97
[2022-12-11 04:00] VITALS: BP 115/67; PULSE 57; RESP 16; TEMP 36.7; O2SAT 98
--- NOTE | 2022-12-11 08:31 | PM.OBGYDC ---
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 She had an unremarkable labor and an unremarkable delivery of a healthy appearing male . She was GBS positive, and she had inadequate treatment of her GBS status prior to delivery. Her course was unremarkable. She breast-fed well. Her bleeding was minimal. Her pain was well controlled. There were no concerns. Information Peripartum Data: Infant Delivery Method: Vaginal Physical Exam Narrative: The patient is alert. She appears comfortable. Her heart has a regular rate and rhythm with no murmurs appreciated. Lungs are clear to auscultation bilaterally. Her fundus is firm and below the umbilicus. Discharge Data Studies Completed and Pending Laboratory Results WBC 14.9 10^3/uL (4.0-10.0) H 12/09/22 20:00 RBC 3.42 10^6/uL (4.1-5.3) L 12/09/22 20:00 Hgb 11.1 g/dL (11.5-15.3) L 12/09/22 20:00 Hct 33.6 % (37.0-47.0) L 12/09/22 20:00 MCV 98.2 fl (81-99) 12/09/22 20:00 MCH 32.5 pg (28.0-34.0) 12/09/22 20:00 MCHC 33.0 g/dL (30.0-36.0) 12/09/22 20:00 RDW 13.3 % (12.1-15.1) 12/09/22 20:00 Plt Count 150 10^3/cmm (130-400) 12/09/22 20:00 MPV 11.4 fL (7.4-10.4) H 12/09/22 20:00 Neut % (Auto) 69.6 % 12/09/22 03:23 Lymph % (Auto) 22.8 % 12/09/22 03:23 Grayson % (Auto) 6.0 % 12/09/22 03:23 Eos % (Auto) 0.6 % 12/09/22 03:23 Baso % (Auto) 0.6 % 12/09/22 03:23 Neut # (Auto) 6.95 10^3/uL (1.8-7.7) 12/09/22 03:23 Lymph # (Auto) 2.3 10^3/uL (0.8-4.8) 12/09/22 03:23 Grayson # (Auto) 0.6 10^3/uL (0.2-0.9) 12/09/22 03:23 Eos # (Auto) 0.1 10^3/uL (0.0-0.8) 12/09/22 03:23 Baso # (Auto) 0.1 10^3/uL (0.0-0.1) 12/09/22 03:23 Nucleated RBC % (auto) 0 % 12/09/22 03:23 Nucleated RBCs # 0.0 /100WBC 12/09/22 03:23 Urine Opiates Screen Positive ng/mL (Negative) H 12/09/22 03:25 Ur Barbiturates Screen Negative ng/mL (Negative) 12/09/22 03:25 Ur Phencyclidine Scrn Negative ng/mL (Negative) 12/09/22 03:25 Ur Amphetamines Screen Negative ng/mL (Negative) 12/09/22 03:25 U Benzodiazepines Scrn Negative ng/mL (Negative) 12/09/22 03:25 Urine Cocaine Screen Negative ng/mL (Negative) 12/09/22 03:25 U Marijuana (THC) Screen Negative ng/mL (Negative) 12/09/22 03:25 Vitals Last Vital Signs Temp 98.0 F 12/11/22 04:00 Pulse 57 L 12/11/22 04:00 Resp 16 12/11/22 04:00 BP 115/67 12/11/22 04:00 Pulse Ox 98 12/11/22 04:00 O2 Del Method Room Air 12/11/22 04:00 Discharge Plan Discharge Patient Disposition: Home Prescriptions: New ibuprofen 800 mg Tablet 800 mg PO TID Qty: 45 0RF Continued cholecalciferol (vitamin D3) 5,000 unit tablet,disintegrating 5,000 unit PO DAILY Qty: 30 0RF venlafaxine [Effexor XR] 75 mg capsule,extended release 24hr 75 mg PO DAILY Qty: 30 5RF albuterol sulfate [ProAir HFA] 90 mcg/actuation HFA aerosol inhaler 2 puff inhalation QID PRN (Reason: shortness of breath or wheezing) Qty: 6.7 0RF hydrocodone-acetaminophen 10-325 mg tablet 1 tab PO BID PRN (Reason: Pain) fluticasone propionate 50 mcg/actuation spray,suspension 2 spray intranasal DAILY 360 Days Qty: 16 11RF Rx Instructions: administer into each nostril mecobalamin (vitamin B12) 5,000 mcg tablet,disintegrating 5,000 mcg PO DAILY Qty: 30 5RF Discontinued cephalexin 500 mg capsule 500 mg PO TID Qty: 30 0RF doxycycline hyclate 100 mg capsule 100 mg PO BID Qty: 14 0RF pantoprazole 40 mg tablet,delayed release (DR/EC) 40 mg PO DAILY Rx Instructions: TAKE ONE TABLET BY MOUTH DAILY lidocaine HCl [Lidocaine Viscous] 2 % solution 5 ml mucous membrane Q4H PRN (Reason: pain) Qty: 100 0RF Discharge Orders: Discharge Order (Routine); Ordered 12/11/22 Ordered By: Jj Villalpando Referrals: Jj Villalpando MD [Physician] - 6 Weeks Discharge Diet: Usual diet Discharge Activity: Limit activity as instructed Patient Instructions: Depression (GEN), Bleeding (DC), Preeclampsia and Eclampsia After Delivery (GEN), OB Discharge Report, OB Food/Drug Interaction Guide, OB Care at Home, Opioid Safety, OB Vaginal Deliveries Discharge Attestations 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
[2022-12-11] MEDS: docusate sodium 100 mg Capsule PO (09:09)
[2022-12-11] MEDS: prenatal vitamin Capsule 1 CAP PO (09:09)
[2022-12-11] MEDS: ibuprofen 800 mg tablet PO (09:09)
[2022-12-11 09:15] VITALS: BP 108/69; PULSE 83; TEMP 36.8; O2SAT 96
[2022-12-11 11:50] VITALS: BP 121/70; PULSE 74; RESP 14; O2SAT 97
[2022-12-11 12:56] VITALS: PULSE 74; RESP 14; O2SAT 97
== END 2022-12-11 11:50 | disposition home or self-care (01) | DRG 807 ==
LOC: OPOB 05:31 → OBGYN 05:31
PROVIDERS: Admitting Provider Family Medicine; PCP Nurse Practitioner; Visit Provider Family Medicine
DX: O99.824 Streptococcus B carrier state complicating childbirth (principal); Z37.0 Single live birth; Z3A.39 39 weeks gestation of pregnancy; O99.334 Smoking (tobacco) complicating childbirth; F17.210 Nicotine dependence, cigarettes, uncomplicated; O99.344 Other mental disorders complicating childbirth; F41.1 Generalized anxiety disorder; Z88.0 Allergy status to penicillin; Z79.891 Long term (current) use of opiate analgesic
CPT/HCPCS: 36415; 59025; 59409; 80306; 83986; 85025; 85027; 96374; 99211; J0690; J3010; J7040; J7121

== ENCOUNTER → 2023-07-19 13:39 | Outpatient (BNVA) | payer MEDICAID, SELFPAY | PROVIDERS: PCP Nurse Practitioner; Visit Provider Nurse Practitioner Family | DX: M25.50 Pain in unspecified joint (principal) | CPT/HCPCS: 80053; 84443; 85025; 85651; 86140; 86160; 86162; 86235; 86255; 86376; 86431 ==

== ENCOUNTER 2023-08-12 14:00 | Outpatient (CLI) | payer MEDICAID, SELFPAY ==
--- NOTE | 2023-08-12 14:08 | XR_ITS ---
WS: [id number] Left knee, 3 views, 08/12/2023 Clinical Data: M25.50 - Pain in unspecified joint Comparison: Left knee, 11/06/2020 Findings: No fractures or dislocations are seen. The joint spaces are normal. The patella is intact. The soft t issues are unremarkable. Impression: Negative left knee. Kellgren-Homero Classification: grade 0 (none): definite absence of x-ray changes of osteoarthritis
--- NOTE | 2023-08-12 14:08 | XR_ITS ---
WS: [email or web address] Right knee, 3 views, 08/12/2023 Clinical Data: M25.50 - Pain in unspecified joint Comparison: None. Findings: No fractures or dislocations are seen. The joint spaces are normal. The patella is intact. The soft t issues are unremarkable. Impression: Negative right knee. Kellgren-Homero Classification: grade 0 (none): definite absence of x-ray changes of osteoarthritis
--- NOTE | 2023-08-12 14:08 | XR_ITS ---
WS: [email or web address] Right shoulder, 3 views, 08/12/2023 Clinical Data: M25.50 - Pain in unspecified joint Comparison: None. Findings: No fractures or dislocations are seen. The AC joint is normal. The adjacent right clavicle, right sca pula and ribs are normal. The soft tissues are unremarkable. There are surgical clips in the right axilla. Impression: Negative right shoulder.
--- NOTE | 2023-08-12 14:08 | XR_ITS ---
WS: [email or web address] Left shoulder, 3 views, 08/12/2023 Clinical Data: M25.50 - Pain in unspecified joint Comparison: Left shoulder, 09/20/2013 Findings: No fractures or dislocations are seen. The AC joint is normal. The adjacent left clavicle, left scapu la and ribs are normal. The soft tissues are unremarkable. Impression: Negative left shoulder.
== END 2023-08-12 14:01 | disposition home or self-care (01) ==
LOC: RAD 14:02
PROVIDERS: PCP Nurse Practitioner; Visit Provider Nurse Practitioner
DX: M25.511 Pain in right shoulder (principal); M25.512 Pain in left shoulder; M25.562 Pain in left knee; M25.561 Pain in right knee
CPT/HCPCS: 73030; 73562

== ENCOUNTER 2023-09-07 08:04 | Day surgery (SDC) | payer MEDICAID, SELFPAY ==
--- NOTE | 2023-08-19 11:17 | ANES.PREANE2 ---
Pre-Anesthetic Assessment Height/Weight: Height 1.75 m Operation Date: 08/24/23 07:00 Proposed Procedures p Cervical cone biopsy 07008, Laparosocpic bilateral salpingectomy 12874, R97.613,Z30.2(Not Applicable) - Bebo Casey MD Familial anesthetic complications: None Social Alcohol and Tobacco (vapes) Exam alert, oriented x 3, clear to auscultation bilaterally and regular rate & rhythm Airway Mallampati: Class II Dentition: full (repaired) Pulmonary Asthma GI Gastroesophageal Reflux Disease Anesthetic Plan ASA status: 2 Anesthesia: General Risk of > 500 ml blood loss (7ml/kg in children): No Medications/Allergies Home Medications Medication Instructions Recorded Confirmed Last Taken Type cholecalciferol (vitamin D3) 125 5,000 unit PO DAILY #30 tabs 08/23/19 08/19/23 08/19/23 Rx mcg (5,000 unit) disintegrating tablet mecobalamin (vitamin B12) 5,000 5,000 mcg PO DAILY #30 tabs 03/13/20 08/19/23 08/19/23 Rx mcg disintegrating tablet albuterol sulfate 90 mcg/actuation 2 puff inhalation QID PRN 01/12/22 08/19/23 08/19/23 Rx aerosol inhaler (ProAir HFA) shortness of breath or wheezing #6.7 grams hydrocodone 10 mg-acetaminophen 1 tab PO BID PRN Pain 02/06/22 08/19/23 08/19/23 History 325 mg tablet fluticasone propionate 50 2 spray intranasal DAILY PRN 08/19/23 08/19/23 08/19/23 History mcg/actuation nasal allergies spray,suspension ibuprofen 200 mg tablet 400 mg PO Q6H PRN Pain 08/19/23 08/19/23 08/19/23 History norethindrone (contraceptive) 0.35 0.35 mg PO DAILY 08/19/23 08/19/23 08/19/23 History mg tablet (Gayle) Allergies Allergy/AdvReac Type Severity Reaction Status Date / Time Penicillins Allergy Unknown Verified 08/19/23 10:38 [facility] Anesthesia Medical History Enlarged lymph node GERD (gastroesophageal reflux disease) Change in bowel habit Breast lump Axillary lymphadenopathy Hypoglycemia GERD (gastroesophageal reflux disease) Surgical History History of lymphadenopathy Right axilla removal 08/01/19 History of breast biopsy July 04 History of foot surgery History of tonsillectomy Family History Other Cancer Diabetes Denies family history of Anesthesia complication Bleeding disorder Social History Smoking and tobacco/nicotine status: current every day tobacco/nicotine user Second hand smoke exposure: No Alcohol intake: current Alcohol intake frequency: holidays/special occasions only Substance/Drug Use: unknown Adopted: No Caregiver/support person: No Lives independently: Yes Household members: children and none Housing: House Marital status: Single Number of children: 2 service: No Current occupational status: employed Current occupation: [employer] Do you think of yourself as: Straight/Heterosexual Current gender identity: Female Female Reproductive History Date of last menstrual period: 08/05/23 Data Anesthesia Cardiac Studies: No Data to Display
--- NOTE | 2023-08-24 12:16 | SUR.PREOP ---
[address] Casey per Destinee Lilly to call patient to give 3pm time of arrival instead of 1330,talked with pt and verbalized understanding
--- NOTE | 2023-08-24 15:22 | PC.NURSE ---
surgery to be resceduled per pt and surgery delays.
[2023-09-07] VITALS (13 sets, daily range): BP systolic 98–140; BP diastolic 56–88; PULSE 58–91; RESP 12–18; TEMP 36.3–36.6; O2SAT 96–100; BMI 20.7
[2023-09-07 08:20] LABS: Add Urine Microscopic? NO; Charge for UA Resulting for Rev
[2023-09-07] MEDS: sodium chloride 0.9% 500 ML IV (08:30)
[2023-09-07] MEDS: scopolamine 1.5 Patch 1 PATCH TRANSDERMA (08:32)
[2023-09-07] MEDS: vancomycin 1,000 MG in sodium chloride 0.9% 250 ML 250 MG IV (08:34)
[2023-09-07 08:36] LABS: Basophils # 0.1 10^3/uL (0.0-0.1); Eosinophils # 0.1 10^3/uL (0.0-0.8); Eosinophils % 1.1 %; Hematocrit 43.7 % (36-47); Lymphocytes % 28.4 %; Mean Corpuscular HGB Conc 33.4 g/dL (30-55); Mean Corpuscular Hemoglobin 31.4 pg (27-33); Mean Platelet Volume 9.4 fL (7.4-10.4); Monocytes # 0.3 10^3/uL (0.2-0.9); Monocytes % 4.6 %; Neutrophils % 64.6 %; Nucleated Red Blood Cells % 0 %; Platelet Count 228 10^3/cmm (157-399); Red Blood Count 4.65 10^6/uL (3.85-5.65); Red Cell Distribution Width 12.7 % (12.1-15.1); White Blood Count 7.12 10^3/uL (3.29-11.43)
--- NOTE | 2023-09-07 08:37 | P.ANESUD_ITS ---
Pre-Anesthetic Update Pre-Anesthetic Assessment: Date of Surgery/Procedure: 09/07/23 Preop April gnosis: High squamous intraepithelial lesion high, desire permanent sterilization Proposed Procedure: Operation Date: 09/07/23 09:50 Proposed Procedures p Cervical cone biopsy 38310, Laparosocpic bilateral salpingectomy 15631, R97.613,Z30.2(Not Applicable) - Bebo Casey MD s Laparoscopic Salpingectomy(Bilateral) - Bebo Casey MD Any changes to Pre-Anesthetic Assessment?: No Last Intake: Intake Last Liquid Date 09/06/23 Last Liquid Time 23:00 Last Solid Date 09/06/23 Last Solid Time 22:00 Labs Last 48hrs: Short CBC 09/07/23 Range/Units 08:20 WBC 7.12 (3.29-11.43) 10^ 3/uL Hgb 14.60 (11.27-16.99) g/ dL Hct 43.7 (36-47) % MCV 94.0 (85-98) fl Plt Count 228 (157-399) 10^3/c mm Neut % (Auto) 64.6 % Neut # (Auto) 4.60 (1.8-7.7) 10^3/u L Vitals: Temperature 97.6 F 09/07/23 08:17 Temperature Source Temporal Artery S can 09/07/23 08:17 Pulse Rate 67 09/07/23 08:17 Respiratory Rate 18 09/07/23 08:17 Blood Pressure 120/71 09/07/23 08:17 Blood Pressure Adilene n 87 09/07/23 08:17 Pulse Oximetry 98 09/07/23 08:17 Oxygen Delivery Me thod Room Air 09/07/23 08:17 Exam: Pre-Anes Outpt Exam: alert, oriented x 3, clear to auscultation bilaterally and regular rate & rhythm Cardiac Studies: No Data to Display
[2023-09-07 08:44] LABS: Bilirubin Urine Neg (Negative); Blood Urine Neg (Negative); Glucose Urine UA Norm (Normal); Ketones Urine Negative (Negative); Nitrate Urine Negative (Negative); Protein Urine Neg (Negative); Specific Gravity, Urine 1.025 (1.005-1.030); Urine Appearance Clear (CLEAR); Urine Color Yellow (Yellow); pH Urine 5 (5-7)
[2023-09-07 08:45] LABS: Leukocyte Esterase Urine Negative (Negative); Urobilinogen Urine Norm (Negative)
[2023-09-07 08:56] LABS: Alanine Aminotransferase 9 U/L (0-33); Albumin Level 4.4 g/dL (3.5-5.2); Alkaline Phosphatase 69 U/L (35-105); Anion Gap 13.3 (5-19); Aspartate Amino Transferase 12 U/L (0-32); Blood Urea Nitrogen 12 mg/dL (6-20); Calcium 9.2 mg/dL (8.5-10.5); Carbon Dioxide 28 mmol/L (22-29); Chloride 106 mmol/L (98-107); Creatinine Clr Calc Pharmacy 110.9257; Globulin 2.9 g/dL (1.3-4.6); Glomerular Filtration Rate 93.2 mL/min (90-130); Glucose 119 mg/dL (65-115); Osmolality Calculated 295 mOsm/kg (285-295); Potassium 5.3 mmol/L (3.5-5.1); Sodium 142 mmol/L (136-145); Total Bilirubin 0.4 mg/dL (0.15-1.2); Total Protein 7.3 g/dL (6.6-8.7)
[2023-09-07] MEDS: sodium chloride 0.9% 1,000 ML 30 ML IV (09:05)
[2023-09-07 09:16] LABS: OR HCG Qualitative Urine Negative (Negative)
--- NOTE | 2023-09-07 09:36 | W.PM.OPSUD ---
Surgery/Procedure H&P Update DATE OF PROCEDURE: September 07, 2023 DATE H&P PERFORMED: 08/20/23 H&P UPDATE INFORMATION: I have reviewed H&P completed within last 30 days, I have examined patient prior to procedure and No changes to prior documentation PREOP DIAGNOSIS: High squamous intraepithelial lesion high, desire permanent sterilization PLANNED PROCEDURE: Operation Date: 09/07/23 09:50 Proposed Procedures p Cervical cone biopsy 92086, Laparosocpic bilateral salpingectomy 03796, R97.613,Z30.2(Not Applicable) - Bebo Casey MD s Laparoscopic Salpingectomy(Bilateral) - Bebo Casey MD
--- NOTE | 2023-09-07 09:39 | SUR.PREOP ---
0930 patient put stock and station agent light and c/o itching,rash noted to back and left forearm,vancomycin turned off and 200cc left from bag.
--- NOTE | 2023-09-07 09:47 | SUR.PREOP ---
[address] freitas and notified of pt's drug reaction to vancomycin and he stated he doesn't want to give anything else in its place,Levaquin 750 cc also ordered
[2023-09-07] MEDS: levofloxacin-dextrose 5 % 750 MG/150 ML PREMIX 100 MG IV (10:00)
[2023-09-07] MEDS: BUPivacaine 0.5% INJ 10 mL INJECTION (11:10)
[2023-09-07] MEDS: lidocaine-epi 1% 20 mL INJ 10 ML INJECTION (11:11)
--- NOTE | 2023-09-07 11:19 | PM.OP ---
Operative Report Date of procedure: September 07, 2023 Pre-op diagnosis: Desire permanent sterilization High grade squamous intraepithelial cervical dysplasia Post-op diagnosis: same Procedure done: Laparoscopic bilateral salpingectomy Cervical cone biopsy Specimens removed/disposition: Left and right fallopian tube. Cervical cone biopsy Surgeon: Bebo Casey MD Estimated blood loss (mL): 5 IV fluids (mL): 1,000 Urine output (mL): 250 Complications: None Procedure: After informed consent, the patient was taken to the operating room where general anesthesia was administered. She was placed in the dorsal lithotomy position and prepped and draped in sterile fashion. Pre-Procedure Time-Out verifying the correct patient identity, correct procedure verified with consent, correct site and side, correct patient position, availability of correct implants and any special equipment or requirements was performed and acknowledge by the OR team. The patient was examined under anesthesia and found to have a normal uterus with normal adnexa. A weighted speculum was placed in the vagina, and the anterior lip of cervix was grasped with the single toothed tenaculum. A uterine manipulator was advanced into the endocervical canal and uterus. The tenaculum was removed after uterine manipulator was secured. The speculum was removed from the vagina. An intraumbilical incision was made with a scalpel. While tenting up on the abdomen, a Verres needle was admitted into the intra-abdominal cavity. A saline drop test was performed and noted to be within normal limits. Pneumoperitoneum was attained with 4 liters of carbon dioxide. The Verres needle was removed. A 5 mm Opitc view trocar and sleeve were admitted into the abdomen and laparoscopic confirmation of location was achieved. A second incision was made 3 cm above the symphysis pubis, and a 5 mm trocar sleeves were admitted into the abdomen under direct laparoscopic visualization without complication. A survey revealed normal abdominal anatomy with the exception of string adhesion to the right lower anterior abdominal wall. A 5 mm blunt probe was advanced through the second trocar sleeve, and light manipulation of ovaries and uterus to assess the posterior aspects was performed. The pelvic survey shows normal uterus, left and right adnexa. The left ovary was noted with a follicular cyst. The string adhesion was fulgurated and transected with good hemostasis with the Ligasure. The patient was placed into Trendelenburg position. The fallopian tubes were inspected bilaterally and the fimbriated ends of the fallopian tubes were visualized bilaterally. Attention was then directed to the right side. The fallopian tube and mesosalpinx were grasped and the underlying mesosalpinx was cauterized and cut using the Ligasure device. Serial cauterization and cutting was used to separate the fallopian tube from the underlying mesosalpinx until it could be amputated cutting it approximated 2 cm from the cornua. Attention was then turned to the contralateral fallopian tube, which was removed in similar fashion. Both specimens were removed through the trocar and sent to pathology. The instruments were removed. The suprapubic trocar port was removed under direct visualization insuring good hemostasis. The carbon dioxide was allowed to escape from the abdomen. The intraumbilical trocar sleeve was withdrawn under visualization with laparoscope in the sleeve to insure hemostasis. The skin incisions were closed with 3-O Monocryl subcuticular stich and Dermabond. Then proceeded to perform the cervical cone biopsy. An open side vaginal speculum was then placed in the patient's vagina and the anterior lip of the cervix grasped with the singed toothed tenaculum A uterine sound was then advanced into the cervix to determine its direction and length. The decending cervical branchs of the uterine arteries were ligated with 2-0 Vicryl bilaterally at the level of the internal os. Attention was then turned to the cervix where it was stain with Lugol?s solution to hightlight the lesion. The paracervical area was then circumferentially infiltrated using Lidocaine 1% with epinephrine. A BioGreen Teck Cone Biopsy Excisor was used to cut the cone biopsy in circular fashion and following removal of the specimen a suture was placed at the 12 o?clock location and fixed in formalin. The Sturmdorf suture with 3-O Vycril was applied. Bleeding was minimal. The instruments were removed from the vagina, and excellent hemostasis was noted. The patient tolerated the procedure well, and sponge, lap and needle count were correct times two. The patient was taken to the recovery room in good condition.
[2023-09-07] MEDS: fentaNYL 50 mcg/mL INJ 2mL IVP ×2 (11:32→11:46)
[2023-09-07] MEDS: meperidine 50 mg/mL INJ 12.5 MG IVP (11:40)
--- NOTE | 2023-09-07 11:54 | SUR.PHASEII ---
1153 call received from [facility] in outpatient pharmacy regarding prescription for Hydrocodone 5/325, pt takes Hydrocodone 10/[address] and will have to get it approved with pain dr and insurance in order to get filled,stated i would call back if prescription is needed
[2023-09-07] MEDS: HYDROcodone-acetaminophen 10-325 mg Tablet 1 TAB PO (12:18)
--- NOTE | 2023-09-07 12:55 | ANE.PACU2 ---
Inpatient post-anesthesia follow up: Airway intact: Yes Vital signs: Temperature 98 F Pulse Rate 58 Respiratory Rate 17 Blood Pressure 115/56 Pulse Oximetry 99 Oxygen Delivery Me thod Room Air Oxygen Flow Rate Fraction of Inspir ed Oxygen Hydration adequate: Yes Nausea and vomiting: No Pain level: 1 Mental status: Baseline
== END 2023-09-07 12:54 | disposition home or self-care (01) ==
PROVIDERS: PCP Nurse Practitioner; Visit Provider Obstetrics & Gynecology
PROC: 0UB97ZZ Excision of Uterus, Via Natural or Artificial Opening (ICD-10-PCS; CPT 57520; principal; 2023-09-07 09:40)
PROC: (CPT 58661; 2023-09-07 09:40)
DX: Z30.2 Encounter for sterilization (principal); N87.9 Dysplasia of cervix uteri, unspecified; K21.9 Gastro-esophageal reflux disease without esophagitis; F17.200 Nicotine dependence, unspecified, uncomplicated
CPT/HCPCS: 57520; 58661; 36415; 80053; 81003; 81025; 84703; 85025; 86850; 86900; 88302; 88307; J1100; J1200; J1956; J2175; J2250; J2405; J2704; J2710; J3010; J3370; J3490; J7030; J7040; J7050

== ENCOUNTER 2023-10-16 15:40 | Emergency (ER) | payer MEDICAID, SELFPAY ==
[2023-10-16 15:46] VITALS: BP 106/61; PULSE 70; RESP 16; TEMP 36.6; O2SAT 99; BMI 21.2
--- NOTE | 2023-10-16 18:05 | XRR_ITS ---
PROCEDURE INFORMATION: Exam: XR Right Hand Exam date and time: 10/16/2023 6:12 PM Age: 38 years old Clinical indication: Injury or trauma; Right; Ring finger; Patient HX: Laceration to RT 4th digit. TECHNIQUE: Imaging protocol: Radiologic exam of the right hand. Views: 3 or more views. COMPARISON: No relevant prior studies available. FINDINGS: Bones/joints: No evidence of fracture or subluxation. Radiocarpal articulation and carpal rows are grossly intact. No evidence of osseous erosion to suggest osteomyelitis. Soft tissues: Grossly unremarkable. XR/XR hand RT min 3V* [id number] IMPRESSION: 1. No evidence of radiopaque foreign body, fracture or subluxation.
--- NOTE | 2023-10-16 19:00 | W.ED.WOUNDLC ---
HPI - Wound/Laceration General: Chief Complaint: Wound/Laceration Stated Complaint: Right hand finger lac, numbess to finger Time Seen by Provider: 10/16/23 17:17 History of Present Illness: Bety is a cwuaa-zzow-pvvozzyc 38-year-old female that presents to the emergency department with complaints of finger lacerations. Patient reports she was putting a glass like when it fell and shattered cutting her right fourth finger. The 1 cm lacerations on the palmar aspect of the PIP joint of the right fourth finger. She is unable to flex the digit. Sensation is intact Unknown tetanus Associated symptoms: Denies chills, fever(s), nausea or vomiting Review of Systems Const: Denies: fever(s), chills, body aches or change in appetite Eyes: Denies: change in vision, eye discharge or eye redness ENMT: Denies: throat pain, hoarseness, ear or mastoid pain, ear discharge, nasal discharge or nasal congestion Card: Denies: chest pain, palpitations, irregular heart rhythm or edema Resp: Denies: dyspnea, productive cough, non-productive cough or wheezing GI: Denies: abdominal pain, nausea, vomiting, diarrhea, constipation or hematochezia : Denies: difficulty voiding, dysuria, urinary frequency, urinary urgency, urinary hesitancy or hematuria Musc: Reports: joint pain; Denies: joint swelling, joint redness, joint warmth or joint stiffness Skin/Breast: Reports: other (Finger laceration); Denies: rash Neuro: Denies: headache(s) Psych: Denies: suicidal ideation or homicidal ideation Otis/Lymph: Denies: enlarged lymph nodes or tender lymph nodes [facility] ED PFSH: Medical History Enlarged lymph node GERD (gastroesophageal reflux disease) Change in bowel habit Breast lump Axillary lymphadenopathy Hypoglycemia GERD (gastroesophageal reflux disease) Surgical History History of lymphadenopathy Right axilla removal 08/01/19 History of breast biopsy July 04 History of foot surgery History of tonsillectomy Family History Other Cancer Diabetes Denies family history of Anesthesia complication Bleeding disorder Physical Exam Const: COMMON NORMALS: no acute distress GENERAL APPEARANCE: cooperative ORIENTATION/CONSCIOUSNESS: Yes awake Neck/C-Spine: COMMON NORMALS: full ROM GENERAL: Yes normal visual inspection Chest: COMMONS NORMALS: normal inspection of the chest Resp: COMMON NORMALS: normal respiratory effort Cardio: COMMON NORMALS: regular rate, regular rhythm and Peripheral pulses 2+ throughout RATE: regular rate RHYTHM: regular rhythm PERIPHERAL PULSES: Peripheral pulses 2+ throughout GI: COMMON NORMALS: Normal to inspection, nondistended, normoactive bowel sounds present, Soft to palpation, non-tender and No hepatosplenomegaly present INSPECTION: Yes normal to inspection AUSCULTATION: Yes normoactive bowel sounds PALPATION: Yes Soft to palpation and Yes No hepatosplenomegaly present RECTAL EXAM: deferred Extremity: COMMON NORMALS: normal to inspection GENERAL: Yes normal exam except as noted Skin: COMMON NORMALS: no rashes or lesions noted and turgor normal GENERAL SKIN EXAM: no rashes or lesions noted and turgor normal Procedures Laceration Laceration 1: Site: hand Side (If applicable): right (Palmar aspect) Size (cm): 1 Description: linear (At the level of the PIP joint) Depth: involves tendon Local Anesthetic: lidocaine 1% Amount of anesthesia used (mL): 1 Pre-repair: wound explored and irrigated extensively Skin layer closed with: nylon Size (cm): 4-0 Number of sutures: 2 Technique: horizontal mattress Course Vital Signs: Vital signs: Vital Signs Temperature 98 F 10/16/23 15:46 Pulse Rate 70 10/16/23 15:46 Respiratory Rate 16 10/16/23 15:46 Blood Pressure 106/61 10/16/23 15:46 Pulse Oximetry 99 10/16/23 15:46 Oxygen Delivery Me thod Room Air 10/16/23 15:46 MDM - Wound/Laceration Medical Decision Making Patient is a cvhpb-chep-oenoubuy female that sustained a laceration to the right hand. The laceration is palmar aspect of the fourth digit right at the PIP joint. It appears that she got her flexor tendon as she is stuck in extension unable to flex it. XR of the right hand was obtained revealing no retained foreign bodies or fractures. She underwent a suture repair. I injected approximately 1 mL of lidocaine to the borders of the laceration. After anesthesia was achieved, the area was scrubbed with Betadine and vigorously irrigated with normal saline. I was unable to visualize any foreign bodies. I was also unable to visualize any tendon. 2 horizontal mattress sutures were placed and the wound borders were well-approximated. We updated her tetanus I contacted Anel Chowdhury for hand surgery. Report given to Dr. Cochran Appreciate the recommendations and forwarded them to the patient. She is going to be treated here and at home with Keflex She will be contacted by hand surgeon Dr Cochran on Wednesday to discuss surgical options Tentative plans for operative fixation Wednesday or . All questions answered XR interpretation done by ED provider, pending radiology final review Discharge Plan Discharge Patient Disposition: Home Clinical Impression: Laceration Condition: Stable Prescriptions: New cephalexin 500 mg capsule 500 mg PO Q6H 7 Days Qty: 28 0RF No Action cholecalciferol (vitamin D3) 5,000 unit tablet,disintegrating 5,000 unit PO DAILY Qty: 30 0RF albuterol sulfate [ProAir HFA] 90 mcg/actuation HFA aerosol inhaler 2 puff inhalation QID PRN (Reason: shortness of breath or wheezing) Qty: 6.7 0RF hydrocodone-acetaminophen 10-325 mg tablet 1 tab PO BID PRN (Reason: Pain) mecobalamin (vitamin B12) 5,000 mcg tablet,disintegrating 5,000 mcg PO DAILY Qty: 30 5RF ibuprofen 200 mg Tablet 400 mg PO Q6H PRN (Reason: Pain) norethindrone (contraceptive) [Gayle] 0.35 mg tablet 0.35 mg PO DAILY fluticasone propionate 50 mcg/actuation spray,suspension 2 spray intranasal DAILY PRN (Reason: allergies) Rx Instructions: administer into each nostril ibuprofen 800 mg tablet 800 mg PO TID PRN (Reason: pain) Qty: 60 0RF hydrocodone-acetaminophen 5-325 mg tablet 1 tab PO Q4H PRN (Reason: pain) Qty: 10 0RF acetaminophen 325 mg capsule 325 mg PO Q4H PRN (Reason: fever or pain) Qty: 60 0RF Discharge Orders: Discharge ED (Routine); Ordered 10/16/23 Ordered By: Ronna Greene [facility] [place]: Daysi Haro, ASSISTED LIVING ADMINISTRATOR-C [Primary Care Provider] - Pilo Cochran MD [Referring] - Discharge Diet: Advance as tolerated Discharge Activity: Resume usual activity Patient Instructions: Laceration (ED), Pain Management Activity Restrictions/Additional Instructions: Please follow-up with Dr Cochran. His office will contact you Wednesday to discuss further surgical options. Take your antibiotics as prescribed Keep your wound clean and dry No creams ointments or lotions to the wound Further wound care per hand surgeon Coding Level of Care Code ED Banking Pin Adjuster for Briseida Thrasher
[2023-10-16] MEDS: cephALEXin 500 mg Capsule PO (19:19)
[2023-10-16] MEDS: lidocaine 1% INJ 10 mL (per mL) INJECTION (19:20)
[2023-10-16] MEDS: tetanus-dipt-pertussis 0.5 mL SDV IM (19:20)
[2023-10-16 19:52] VITALS: BP 108/72; PULSE 72; RESP 17; TEMP 36.6; O2SAT 100
== END 2023-10-16 19:43 | disposition home or self-care (01) ==
PROVIDERS: Emergency Provider Nurse Practitioner; PCP Nurse Practitioner
DX: S61.411A Laceration without foreign body of right hand, initial encounter (principal); W25.XXXA Contact with sharp glass, initial encounter; Z23 Encounter for immunization
CPT/HCPCS: 12001; 73130; 90715; 99283

== ENCOUNTER → 2023-10-21 10:20 | Outpatient (BNVA) | payer MEDICAID, SELFPAY | PROVIDERS: PCP Nurse Practitioner; Visit Provider Obstetrics & Gynecology | DX: N92.1 Excessive and frequent menstruation with irregular cycle (principal) | CPT/HCPCS: 84146; 84443; 84702; 85025 ==

== ENCOUNTER 2023-11-05 13:46 | Outpatient (CLI) | payer MEDICAID, SELFPAY ==
--- NOTE | 2023-11-05 14:00 | MM_ITS ---
WS: [id number] BILATERAL 3D TOMOSYNTHESIS DIGITAL SCREENING MAMMOGRAPHY WITH CAD CLINICAL INFORMATION: Z12.31 - Encounter for screening mammogram for malignant ... HISTORY: Screening mammogram. No current complaints. COMPARISON: 2020 TECHNIQUE: Bilateral CC and MLO views. FINDINGS: The breasts are composed of heterogeneous fibroglandular density tissue, which can limit the detectio n of small underlying mass lesions. Irregular asymmetric density inner quadrant LEFT breast measuring 1.1 cm. Recommend further evaluation with LEFT breast diagnostic mammography and ultrasound. This is best seen on the cc view. This localizes to the lower inner quadrant on the tomosynthesis RIGHT breast is unremarkable and unchanged. MM/[place] [id number] IMPRESSION: BI-RADS: 0-Incomplete: Need additional imaging evaluation FOLLOW UP: Need Additional Imaging Recommend further evaluation with LEFT breast diagnostic mammography and ultras ound.
== END 2023-11-05 13:47 | disposition home or self-care (01) ==
LOC: RAD 13:47
PROVIDERS: PCP Nurse Practitioner; Visit Provider Obstetrics & Gynecology
DX: Z12.31 Encounter for screening mammogram for malignant neoplasm of breast (principal); R92.322 Mammographic fibroglandular density, left breast
CPT/HCPCS: 77063; 77067

== ENCOUNTER → 2023-11-08 08:02 | Outpatient (BNVA) | payer MEDICAID, SELFPAY | PROVIDERS: PCP Nurse Practitioner; Visit Provider Obstetrics & Gynecology | DX: N92.0 Excessive and frequent menstruation with regular cycle (principal) | CPT/HCPCS: 76830 ==

== ENCOUNTER 2024-03-21 06:34 | Day surgery (SDC) | payer MEDICAID, SELFPAY ==
--- NOTE | 2024-03-16 10:27 | ANES.PREANE2 ---
Pre-Anesthetic Assessment Height/Weight: Height 1.73 m Operation Date: 03/21/24 09:45 Proposed Procedures p Laparoscopy Diagnostic 89892, R10.2(Not Applicable) - Bebo Casey MD Familial anesthetic complications: scopolamine patched caused visual deficits Was Beta Tobi taken within 24 hours: N/A Was Clonidine taken within 24 hours: N/A Social Tobacco (Vapes) and No alcohol Exam alert, oriented x 3, clear to auscultation bilaterally and regular rate & rhythm Airway Mallampati: Class I Dentition: full (repaired) Musc/skel chronic pain Anesthetic Plan ASA status: 1 Anesthesia: General Risk of > 500 ml blood loss (7ml/kg in children): No Medications/Allergies Home Medications Medication Instructions Recorded Confirmed Last Taken Type cholecalciferol (vitamin D3) 125 5,000 unit PO DAILY #30 tabs 08/23/19 03/16/24 03/15/24 Rx mcg (5,000 unit) disintegrating tablet mecobalamin (vitamin B12) 5,000 5,000 mcg PO DAILY #30 tabs 03/13/20 03/16/24 03/15/24 Rx mcg disintegrating tablet albuterol sulfate 90 mcg/actuation 2 puff inhalation QID PRN 01/12/22 03/16/24 09/04/23 Rx aerosol inhaler (ProAir HFA) shortness of breath or wheezing #6.7 grams hydrocodone 10 mg-acetaminophen 1 tab PO BID PRN Pain 02/06/22 03/16/24 03/16/24 History 325 mg tablet fluticasone propionate 50 2 spray intranasal DAILY PRN 08/19/23 03/16/24 Unknown History mcg/actuation nasal allergies spray,suspension acetaminophen 325 mg capsule 325 mg PO Q4H PRN fever or pain 09/07/23 03/16/24 03/13/24 Rx #60 caps ibuprofen 800 mg tablet 800 mg PO TID PRN pain #60 tabs 09/07/23 03/16/24 03/16/24 Rx Allergies Allergy/AdvReac Type Severity Reaction Status Date / Time Penicillins Allergy ALGY-Hives Verified 03/16/24 10:04 vancomycin Allergy ALGY-Rash Verified 03/13/24 14:37 PFSH Anesthesia Medical History Enlarged lymph node GERD (gastroesophageal reflux disease) Change in bowel habit Breast lump Axillary lymphadenopathy Hypoglycemia GERD (gastroesophageal reflux disease) Surgical History History of lymphadenopathy Right axilla removal 08/01/19 History of breast biopsy July 04 History of foot surgery History of tonsillectomy Family History Other Cancer Diabetes Denies family history of Anesthesia complication Bleeding disorder Social History Smoking and tobacco/nicotine status: current every day tobacco/nicotine user Female Reproductive History Date of last menstrual period: 03/01/24 Data Anesthesia Cardiac Studies: No Data to Display
[2024-03-16 10:40] LABS: Bilirubin Urine Negative (Negative); Blood Urine Negative (Negative); Glucose Urine UA Negative (Normal); Ketones Urine Trace (Negative); Leukocyte Esterase Urine Negative (Negative); Nitrate Urine Negative (Negative); Protein Urine Negative (Negative); Specific Gravity, Urine 1.027 (1.005-1.030); Urine Appearance Clear (CLEAR); Urine Color Yellow (Yellow)
[2024-03-16 10:41] LABS: Basophils % 0.5 %; Eosinophils # 0.1 10^3/uL (0.0-0.8); Eosinophils % 1.1 %; Hematocrit 40.1 % (36-47); Lymphocytes # 1.9 10^3/uL (0.8-4.8); Lymphocytes % 33.6 %; Mean Corpuscular HGB Conc 32.9 g/dL (30-55); Mean Corpuscular Hemoglobin 31.3 pg (27-33); Mean Platelet Volume 9.8 fL (7.4-10.4); Monocytes # 0.2 10^3/uL (0.2-0.9); Monocytes % 4.3 %; Neutrophils # 3.38 10^3/uL (1.8-7.7); Neutrophils % 60.1 %; Nucleated Red Blood Cells % 0 %; Platelet Count 221 10^3/cmm (157-399); Red Blood Count 4.22 10^6/uL (3.85-5.65); Red Cell Distribution Width 12.7 % (12.1-15.1); White Blood Count 5.62 10^3/uL (3.29-11.43)
[2024-03-16 10:43] LABS: Add Urine Microscopic? YES; Bacteria Urine None Seen /hpf; RBC Urine 0-2 /hpf (0-2); Squamous Epithelial Cell Urine 0-5 /hpf (0-5); WBC Urine 0-5 /hpf (0-5)
[2024-03-16 11:09] LABS: Alanine Aminotransferase 10 U/L (0-33); Albumin Level 4.2 g/dL (3.5-5.2); Alkaline Phosphatase 66 U/L (35-105); Anion Gap 12.5 (5-19); Aspartate Amino Transferase 15 U/L (0-32); Blood Urea Nitrogen 11 mg/dL (6-20); Calcium 8.3 mg/dL (8.5-10.5); Carbon Dioxide 25 mmol/L (22-29); Chloride 107 mmol/L (98-107); Globulin 2.4 g/dL (1.3-4.6); Glomerular Filtration Rate 93.2 mL/min (90-130); Glucose 135 mg/dL (65-115); Osmolality Calculated 291 mOsm/kg (285-295); Potassium 4.5 mmol/L (3.5-5.1); Sodium 140 mmol/L (136-145); Total Bilirubin 0.6 mg/dL (0.15-1.2); Total Protein 6.6 g/dL (6.6-8.7)
[2024-03-21] VITALS (10 sets, daily range): BP systolic 103–135; BP diastolic 71–82; PULSE 52–102; RESP 17–18; TEMP 36.2–36.6; O2SAT 97–100; BMI 22.4
[2024-03-21] MEDS: sodium chloride 0.9% 500 ML IV (07:10)
[2024-03-21] MEDS: sodium chloride 0.9% 1,000 ML 30 ML IV (07:10)
[2024-03-21] MEDS: levofloxacin-dextrose 5 % 500 MG/100 ML PREMIX 100 MG IV (07:11)
[2024-03-21 07:21] LABS: OR HCG Qualitative Urine Negative (Negative)
--- NOTE | 2024-03-21 07:24 | P.ANESASSM_ITS ---
Pre-Anesthetic Assessment Height/Weight: Height 5 ft 8 in Weight 147 lb 5.994 oz Temp Pulse Resp BP Pulse Ox O2 Del Method 97.2 F L 72 17 118/74 97 Room Air 03/21/24 06:41 03/21/24 06:41 03/21/24 06:41 03/21/24 06:41 03/21/24 06:41 03/21/24 06:45 Preop Diagnosis: pelvic pain Operation Date: 03/21/24 08:00 Proposed Procedures p Laparoscopy Diagnostic 61207, R10.2(Not Applicable) - Bebo Casey MD Was Beta Tobi taken within 24 hours: N/A Was Clonidine taken within 24 hours: N/A Last intake: Intake Last Liquid Date 03/20/24 Last Liquid Time 23:50 Last Solid Date 03/20/24 Last Solid Time 19:00 Social Tobacco and No alcohol Exam alert, oriented x 3, clear to auscultation bilaterally and regular rate & rhythm Airway Submandibular: within normal limits Cervical ROM: within normal limits Mallampati: Class II Dentition: other (Multiple missing teeth, denies any loose teeth) Anesthetic Plan ASA status: 2 Anesthesia: General Other: No prior issues with anesthesia NPO since yesterday evening Currently vapes nicotine Denies any cardiac issues Labs 03/16/2024 reviewed and acceptable for procedure METs greater than 4 Plan for GETA Medications/Allergies Home Medications Medication Instructions Recorded Confirmed Last Taken Type cholecalciferol (vitamin D3) 125 5,000 unit PO DAILY #30 tabs 08/23/19 03/16/24 03/15/24 Rx mcg (5,000 unit) disintegrating tablet mecobalamin (vitamin B12) 5,000 5,000 mcg PO DAILY #30 tabs 03/13/20 03/16/24 03/15/24 Rx mcg disintegrating tablet albuterol sulfate 90 mcg/actuation 2 puff inhalation QID PRN 01/12/22 03/16/24 09/04/23 Rx aerosol inhaler (ProAir HFA) shortness of breath or wheezing #6.7 grams hydrocodone 10 mg-acetaminophen 1 tab PO BID PRN Pain 02/06/22 03/16/24 03/16/24 History 325 mg tablet fluticasone propionate 50 2 spray intranasal DAILY PRN 08/19/23 03/16/24 Unknown History mcg/actuation nasal allergies spray,suspension acetaminophen 325 mg capsule 325 mg PO Q4H PRN fever or pain 09/07/23 03/16/24 03/13/24 Rx #60 caps ibuprofen 800 mg tablet 800 mg PO TID PRN pain #60 tabs 09/07/23 03/16/24 03/16/24 Rx Allergies Allergy/AdvReac Type Severity Reaction Status Date / Time Penicillins Allergy ALGY-Hives Verified 03/16/24 10:04 vancomycin Allergy ALGY-Rash Verified 03/13/24 14:37 Current Medications Generic Name Dose Route Start Last Admin Trade Name Freq PRN Reason Stop Dose Admin Sodium Chloride 500 mls @ 500 mls/hr 03/21/24 06:35 03/21/24 07:10 Sodium Chloride 0.9% IV 03/21/24 07:34 500 mls/hr ONCE ONE Administration Levofloxacin/Dextrose 500 mg in 100 mls @ 100 mls/hr 03/21/24 06:35 03/21/24 07:11 Levaquin-D5w IV 03/21/24 07:34 100 mls/hr RECEIVING DISTRIBUTION STATION OPERATOR ONE Administration Protocol Sodium Chloride 1,000 mls @ 30 mls/hr 03/21/24 06:45 03/21/24 07:10 Sodium Chloride 0.9% IV 03/22/24 06:44 30 mls/hr .Q24H DANNY Administration PFSH Anesthesia Medical History Enlarged lymph node GERD (gastroesophageal reflux disease) Change in bowel habit Breast lump Axillary lymphadenopathy Hypoglycemia GERD (gastroesophageal reflux disease) Surgical History History of lymphadenopathy Right axilla removal 08/01/19 History of breast biopsy July 04 History of foot surgery History of tonsillectomy Family History Other Cancer Diabetes Denies family history of Anesthesia complication Bleeding disorder Social History Smoking and tobacco/nicotine status: current every day tobacco/nicotine user Female Reproductive History Date of last menstrual period: 03/01/24 Data Anesthesia 03/16/24 10:18 10/10/24 10:18 Cardiac Studies: 2 No Data to Display
--- NOTE | 2024-03-21 07:29 | W.PM.OPSUD ---
Surgery/Procedure H&P Update DATE OF PROCEDURE: March 21, 2024 DATE H&P PERFORMED: 03/13/24 H&P UPDATE INFORMATION: I have reviewed H&P completed within last 30 days, I have examined patient prior to procedure and No changes to prior documentation PREOP DIAGNOSIS: pelvic pain PLANNED PROCEDURE: Operation Date: 03/21/24 08:00 Proposed Procedures p Laparoscopy Diagnostic 37025, R10.2(Not Applicable) - Bebo Casey MD
[2024-03-21] MEDS: metroNIDAZOLE IV 500 MG/100 ML PREMIX 100 MG IV (08:05)
[2024-03-21] MEDS: BUPivacaine 0.5% INJ 10 mL INJECTION (08:42)
--- NOTE | 2024-03-21 09:05 | P.OP_ITS ---
Operative Report Date of procedure: March 21, 2024 Pre-op diagnosis: Chronic pelvic pain Dyspareunia Post-op diagnosis: same Post-op diagnosis: Endometriosis Procedure done: Diagnostic laparoscopy Fulguration of endometriosis lesion Pathology: Mild endometriosis Surgeon: Bebo Casey MD Estimated blood loss (mL): 5 IV fluids (mL): 550 Urine output (mL): 300 Findings: mild endometriosis Procedure: After informed consent, the patient was taken to the operating room where general anesthesia was administered. The patient was examined under anesthesia and found to have a normal uterus with normal adnexa. She was placed in the dorsal lithotomy position and prepped and draped in sterile fashion. Pre- Procedure Time-Out verifying the correct patient identity, correct procedure verified with consent, correct site and side, correct patient position, availability of correct implants and any special equipment or requirements was performed and acknowledge by the OR team. A weighted speculum was placed in the vagina, and the anterior lip of cervix was grasped with the single toothed te naculum. A uterine manipulator was advanced into the endocervical. Tenaculum was removed after uterine manipulator was secured. The speculum was removed from the vagina. An intraumbilical incision was made with a scalpel. While tenting up on the abdomen, a Verres needle with sleeve was admitted into the intra-abdominal cavity. A saline drop test was performed and noted to be within normal limits. Pneumoperitoneum was attained with 4 liters of carbon dioxide. The Verres needle was removed. A 5 mm trocar and sleeve were admitted into the abdomen and laparoscopic confirmation of location was achieved, A second incision was made 3 cm above the symphysis pubis, and a 5 mm trocar and sleeve were admitted into the abdomen under direct, laparoscopic visualization without complication. A survey revealed normal abdominal anatomy. Pelvic survey shows normal uterus, left and right ovary, post bilateral salpingectomy.. A 5 mm blunt probe was advanced through the second trocar sleeve, and light manipulation of ovaries and uterus to assess the posterior aspects was performed. Mild endometriosis lesions seen on the left pelvic wall fossa. All the lesions were fulgurated. Then the carbon dioxide was allowed to escape from the abdomen. The instruments were removed, and skin cover with a bandage. The instruments were removed from the vagina, and excellent hemostasis was noted. The patient to lerated the procedure well, and sponge, lap and needle count were correct times two. The patient taken to the recovery room in good condition.
--- NOTE | 2024-03-21 10:44 | ANE.PACU2 ---
Inpatient post-anesthesia follow up: Airway intact: Yes Vital signs: Temperature 97.8 F Pulse Rate 67 Respiratory Rate 17 Blood Pressure 113/76 Pulse Oximetry 99 Oxygen Delivery Me thod Room Air Oxygen Flow Rate Fraction of Inspir ed Oxygen Hydration adequate: Yes Nausea and vomiting: No Pain level: 1 Mental status: Baseline
== END 2024-03-21 10:44 | disposition home or self-care (01) ==
PROVIDERS: PCP Nurse Practitioner; Visit Provider Obstetrics & Gynecology
PROC: (CPT 49320; principal; 2024-03-21 08:00)
PROC: (CPT 58999; 2024-03-21 08:00)
DX: R10.2 Pelvic and perineal pain (principal); G89.29 Other chronic pain; F17.200 Nicotine dependence, unspecified, uncomplicated; K21.9 Gastro-esophageal reflux disease without esophagitis
CPT/HCPCS: 58662; 36415; 80053; 81001; 81025; 85025; 86850; 86900; J1100; J1200; J1885; J1956; J2250; J2371; J2405; J2704; J3010; J3490; J7030; J7040

== ENCOUNTER → 2024-08-07 12:07 | Outpatient (BNVA) | payer MEDICAID, SELFPAY | PROVIDERS: PCP Nurse Practitioner; Visit Provider Nurse Practitioner Family | DX: R53.83 Other fatigue (principal); M25.60 Stiffness of unspecified joint, not elsewhere classified | CPT/HCPCS: 80053; 82306; 82607; 84443; 85025; 85651; 86140; 86160; 86162; 86235; 86255; 86376; 86431 ==

== ENCOUNTER 2024-09-12 20:00 | Outpatient (CLI) | payer MEDICAID, SELFPAY | END 2024-09-12 20:01 | disposition home or self-care (01) | LOC: SLEEP 22:16 | PROVIDERS: PCP Nurse Practitioner; Visit Provider Anesthesiology Pain Medicine | DX: G47.10 Hypersomnia, unspecified (principal) | CPT/HCPCS: 95810 ==

== ENCOUNTER 2024-10-23 13:05 | Outpatient (CLI) | payer MEDICAID, SELFPAY ==
--- NOTE | 2024-10-23 13:12 | US_ITS ---
WS: [id number] BILATERAL 3D TOMOSYNTHESIS DIGITAL DIAGNOSTIC MAMMOGRAPHY WITH CAD CLINICAL INFORMATION: N64.4 - Mastodynia HISTORY: LEFT breast pain COMPARISON: 2023 TECHNIQUE: Bilateral CC, MLO, and ML views. FINDINGS: The breasts are composed of heterogeneous fibroglandular density, which can limit the detection of small underlying mass lesions. A few incidental punctate calcifications. Ultrasound LEFT breast described below. ULTRASOUND BREAST LEFT TECHNIQUE: Ultrasound left breast focused area of concern. CLINICAL INFORMATION: N64.4 - Mastodynia FINDINGS: Ultrasound LEFT breast in the area of concern retroareolar. Incidental underlying ductal ectasia. Dense underlying parenchymal tissue. No cystic or solid lesions. No suspicious lesions to target for biopsy. US/US breast LT limited* [id number] IMPRESSION: DENSITY: The breasts are heterogeneously dense, which may obscure small masses. BI-RADS: 2 - Benign FOLLOW UP: 1 Year Follow-up Recommend return to annual screening mammography.
--- NOTE | 2024-10-23 13:15 | MM_ITS ---
WS: [id number] BILATERAL 3D TOMOSYNTHESIS DIGITAL DIAGNOSTIC MAMMOGRAPHY WITH CAD CLINICAL INFORMATION: N64.4 - Mastodynia HISTORY: LEFT breast pain COMPARISON: 2023 TECHNIQUE: Bilateral CC, MLO, and ML views. FINDINGS: The breasts are composed of heterogeneous fibroglandular density, which can limit the detection of small underlying mass lesions. A few incidental punctate calcifications. Ultrasound LEFT breast described below. ULTRASOUND BREAST LEFT TECHNIQUE: Ultrasound left breast focused area of concern. CLINICAL INFORMATION: N64.4 - Mastodynia FINDINGS: Ultrasound LEFT breast in the area of concern retroareolar. Incidental underlying ductal ectasia. Dense underlying parenchymal tissue. No cystic or solid lesions. No suspicious lesions to target for biopsy. MM/MM diag BI tomosynthesis [id number] IMPRESSION: DENSITY: The breasts are heterogeneously dense, which may obscure small masses. BI-RADS: 2 - Benign FOLLOW UP: 1 Year Follow-up Recommend return to annual screening mammography.
== END 2024-10-23 13:06 | disposition home or self-care (01) ==
PROVIDERS: PCP Nurse Practitioner; Visit Provider Obstetrics & Gynecology
DX: N64.4 Mastodynia (principal); R92.333 Mammographic heterogeneous density, bilateral breasts; R92.1 Mammographic calcification found on diagnostic imaging of breast; N60.42 Mammary duct ectasia of left breast
CPT/HCPCS: 76642; 77062; G0279

== ENCOUNTER → 2024-11-16 16:02 | Outpatient (BNVA) | payer MEDICAID, SELFPAY | PROVIDERS: PCP Nurse Practitioner; Visit Provider Obstetrics & Gynecology | DX: Z01.419 Encounter for gynecological examination (general) (routine) without abnormal findings (principal) | CPT/HCPCS: 87624 ==

== ENCOUNTER → 2024-12-11 14:57 | Outpatient (BNVA) | payer MEDICAID, SELFPAY | PROVIDERS: PCP Nurse Practitioner Family; Visit Provider Obstetrics & Gynecology | DX: R87.613 High grade squamous intraepithelial lesion on cytologic smear of cervix (HGSIL) (principal); N80.9 Endometriosis, unspecified | CPT/HCPCS: 88305 ==

== ENCOUNTER 2025-01-02 12:26 | Emergency (ER) | payer MEDICAID, SELFPAY ==
[2025-01-02 12:26] VITALS: BP 136/74; PULSE 67; TEMP 36.7; O2SAT 98; BMI 24.6
--- OUTSIDE RECORDS SUMMARY | 2025-01-02 12:30 | XMS_ITS | Data Portability ---
Author Organization WILLARD De La Garza [facility] Hospital[facility] Address [address] [facility] [address] [place] [address] Care Team Providers Care Director Of Occupational Therapy Name Role Phone KLAUS CHRISTENSEN Primary Care Provider [phone] Assessment Encounter Date Assessment Date Assessment LastModified by Organization Details LastModified Time 12/07/2022 12/07/2022 set up for induction in 1 week. Not available 12/07/2022 12:37:41 01/20/2023 01/20/2023 Colposcopy during : 09/15/22 PATRIA 2 on both cervical biopsies 1 and 5 oclock. Plan for repeat colposcopy with ECC now that she is . She will have a hazmat truck driver with her the day of the procedure. Not available 01/20/2023 11:59:00 02/02/2023 02/02/2023 Pt was at her last colposcopy and ECC was not performed. Not available 02/16/2023 14:09:05 04/07/2023 04/07/2023 Probable D-NIRMAL Not available 04/07/2023 14:57:46 Plan of Treatment Reminders Order Date Submit Date Provider Last Modified By Organization Details Last Modified Time Details Appointments None record ed. Lab biopsy , tissue 2022 023 [id number] [facility], [address] [facility] [address] John [place], [address], 08:23:57 biopsy , tissue 2022 023 [id number] [facility], [address] [facility] [address] John C, [place], [address], 3 08:23:57 biopsy , tissue 2022 023 [id number] [facility], [address] John C, [place], [place], [address], 3 08:23:57 Referral None record ed. Procedures None record ed. Surgeries None record ed. Imaging None record ed. Medication Orders buprop ion HCl SR 100 mg tablet ,12 hr sustai amarilis-re lease 2022 023 [facility], [address], [place], [address], 3 17:13:21 noreth indron e (contr acepti ve) 0.35 mg tablet 2022 023 [facility], [address], [place], [address], 4 18:20:54 Valium 5 mg tablet 2022 023 [facility], [address], [place], [address], 3 14:14:52 Patient TargetsNo targets recorded. Patient InstructionsNo instructions recorded. Reason for Referral None Reported. Results Created Date Observation Date Name Description Value Unit Range Abnormal Flag Note LastModifiedBy Organization Detail LastModifiedTime 11/17/19 23 11/21/2022 CULTU RE, GROUP B STREP WITH SUSCE PTIBI LITY culture, group B strep with susceptibili ty SEE NOTE abnormal CULTU RE, GROUP B STREP WITH SUSCE PTIBI LITY Micro Numbe r: [id number] Test Statu s: Final Speci men Sourc e: Vagin al/an orect al Speci men Quali ty: Adequ ate Resul t: Group B Strep tococ cus isola angel Negat jovanny for induc ible clind amyci n adan tance . Note per CDC guide lines optim al recov win is achie deepika by swabb ing both the lower vagin a and rectu m (thro ugh the anal sphin cter) . Group B Strep ----- ----- ----- - INT ERIC AMPIC ILLIN S <=0.2 5 CLIND AMYCI N S <=0.2 5 PENIC ILLIN S <=0.0 6 VANCO MYCIN S 0.5 S=Gina cepti ble I=Int ermed iate R=Res istan t * = Not Teste d NR = Not Repor angel NN = See Thera py Comme nts Not Available [facility] [address] [place], [address], 11/21/2022 08:53:27 12/01/19 23 11/30/2022 urina lysis , dipst ick Leukocytes Negati ve Not Available [facility] ([facility]) [address] [place] [address], [address], 11/30/2022 08:05:42 12/01/19 23 11/30/2022 urina lysis , dipst ick Nitrite negati ve Not Available [facility] ([facility]) [address] [place] [address], [address], 11/30/2022 08:05:42 12/01/19 23 11/30/2022 urina lysis , dipst ick Protein Trace Not Available [facility] ([facility]) [address] [place], [address], 11/30/2022 08:05:42 12/01/19 23 11/30/2022 urina lysis , dipst ick Glucose Negati ve Not Available [facility] ([facility]) [address] [place], [address], 11/30/2022 08:05:42 02/04/20 23 02/10/2023 TISSU E PATHO LOGY clinical information PATRIA 2 Not Available [address] [address] [place], [address], 02/10/2023 15:19:08 02/04/20 23 02/10/2023 TISSU E PATHO LOGY pathologist Roberto pryor MD Board Certi fied in Anato eric Patho logy and Clini todd Patho logy [phone] (elec troni c signa ture) Not Available [facility] [address] [address] [address], [place], [address], 02/10/2023 15:19:08 02/04/2002/10/2023 TISSU E PATHO LOGY report notes Immun ostai n p16 resul ts (spec imens A,B,C ) suppo rt the diagn osis (all posit jovanny and requi red negat jovanny contr ols stain ed appro priat skye). This test was perfo rmed using a kit that has not been clear ed or appro deepika by the FDA. The olivia tical perfo rmanc e abdirahman cteri stics of this test have been deter mined by [facility] Patric huggins. Perfo rmanc e abdirahman cteri stics refer to the olivia tical perfo rmanc e of the test. Not Available [facility] [address] [address] [address], [place], [address], 02/10/2023 15:19:08 02/04/20 23 02/10/2023 TISSU E PATHO LOGY A source Endoc ervix , curet tage Not Available [facility] [address] [address] [place], [address], 02/10/2023 15:19:08 02/04/2002/10/2023 TISSU E PATHO LOGY A gross description Speci men is recei deepika in 10% neutr al buffe red forma lyric, label ed with multi ple patie nt ident ifier s and consi sts of multi ple fragm ents of mucoi d mater ial aggre gatin g to 3.0 x 2.5 x 0.1 cm, irreg ular in shape and vo-b rown in color . The speci men is entir skye submi tted in one casse tte. Gross exam( s) perfo rmed at: [facility] [place] [address] [place] [address] [place], [place] [address] Labor atory Direc tor: MARIA TERESA Joseph MD Not Available [facility] [address] [address] [place], [address], 02/10/2023 15:19:08 02/04/20 23 02/10/2023 TISSU E PATHO LOGY A diagnosis Small detac hed fragm ents of high grade squam ous intra epith elial lesio n (PATRIA 2). Not Available [facility] [address] [address] [place], [address], 02/10/2023 15:19:08 02/04/20 23 02/10/2023 TISSU E PATHO LOGY B source Cervi x, 12 o'linus ck, biops y Not Available [facility] [address] [address] [place], [address], 02/10/2023 15:19:08 02/04/20 23 02/10/2023 TISSU E PATHO LOGY B gross description Speci men is recei deepika in 10% neutr al buffe red forma lyric, label ed with multi ple patie nt ident ifier s and consi sts of two fragm ent(s ) of tissu e and mucoi d mater ial aggre gatin g to 0.4 x 0.4 x 0.2 in cm, irreg ular in shape and yello w-whi te in color . The speci men is entir skye submi tted in one casse tte. Not Available [facility] [address] [address] [place], [address], 02/10/2023 15:19:08 02/04/20 23 02/10/2023 TISSU E PATHO LOGY B diagnosis Focal high grade squam ous intra epith elial lesio n (PATRIA 2). Not Available [address] [address] [address] , [place], [address], 02/10/2023 15:19:08 02/04/20 23 02/10/2023 TISSU E PATHO LOGY B comment Dyspl gissell is mild to focal moder ate. Not Available [facility] [address] [address] [address] , [place], [address], 02/10/2023 15:19:08 02/04/2002/10/2023 TISSU E PATHO LOGY C source Cervi x, 6 o'linus ck, biops y Not Available [facility] [address] [address] [address] , [place], [address], 02/10/2023 15:19:08 02/04/20 23 02/10/2023 TISSU E PATHO LOGY C gross description Speci men is recei deepika in 10% neutr al buffe red forma lyric, label ed with multi ple patie nt ident ifier s and consi sts of one fragm ent of tissu e measu ring 0.4 x 0.3 x 0.2 cm, irreg ular in shape and yello w-whi te in color . The speci men is entir skye submi tted in one casse tte. Not Available [address] [address] [address] , [place], [address], 02/10/2023 15:19:08 02/04/2002/10/2023 TISSU E PATHO LOGY C diagnosis High grade squam ous intra epith elial lesio n (PATRIA 2). Not Available [address] [address] [place], [address], 02/10/2023 15:19:08 Result Notes None recorded. Problems Name Problem SNOMED Code Status Onset Date Resolution Date Notes Provider Name and Address Organization Details Recorded Time Normal in [facility] 224399490201 106 Active 2021 MILAN REEDER [facility] 3 14:20:17 [facility] 178557[facility] 106 Active 2021 MILAN REEDER [facility], LDioniL.CDioni 3 14:20:17 RhD negative 281467477 Active 2022 RhoGam injection given 09/28/22 SACHA DIONNE [facility], L[facility] 3 14:20:17 Mixed anxiety and depressiv e disorder 894592786 Active 2022 YUNIEL PAM [facility], LDioniL.CDioni 3 14:40:02 Problem Notes None recorded. Procedures Surgical History Date Name Laterality Status Provider Name and Address Organization Details Recorded Time 3 Colposcopy completed Sima Cullen MD [address] [place] [address], [address], [facility], Eloisa 02/16/2023 14:14:27 3 Colposcopy completed Sima Cullen MD [address] [place] [address], [address], [facility], EvaCDioni 09/15/2022 17:17:17 3 Date of Last Pap Smear completed MAYLIN MOORE [facility], EvaCDioni 09/15/2022 16:46:48 2 Most Recent Mammogram completed MAYLIN MOORE [facility], Eloisa 09/15/2022 16:47:10 Imaging Results None recorded. Procedure Notes None recorded. Medical Equipment None Reported. Allergies Allergen ID Allergen Name Allergen Category Reaction Reaction Severity Criticality Documentation Date Start Date Code Code System Note Provider Name and Address Organization Details Recorded Time 1346 Product containin g penicilli n (product) medicatio n hives Not available Not available 09/15/2022 00239 8001 SNOMED MAYLIN CAROL MOORE [facility], [facility] 3 16:42:56 47106 amoxicill in medicatio n hives Not available Not available 01/02/2023 723 RxNorm React ion: Hives ; Comme nt: Recor ded 08/17 12:54 PM by Milan hilario er, Offic e Visit ; Promo angel; Peterson hercules ce: *; Reaso n: Drug aller gy; ; Not Available [facility] 3 02:29:19 Medications Name Sig Start Date Stop Date Status Note LastModified by Organization Details LastModified Time cyclobenz aprine 10 mg tablet TAKE ONE TABLET BY MOUTH EVERY TWELVE HOURS NEEDED FOR SPASMS 09/15 completed Not Available Not Available Not Available venlafaxi ne ER 75 mg capsule,e xtended release 24 hr TAKE ONE CAPSULE BY MOUTH DAILY 09/15 completed Not Available Not Available Not Available doxycycli ne hyclate 100 mg capsule TAKE ONE CAPSULE BY MOUTH TWICE DAILY 09/15 completed Not Available Not Available Not Available clindamyc in HCl 300 mg capsule 11/15 completed Not Available Not Available Not Available ibuprofen 800 mg tablet TAKE ONE TABLET BY MOUTH THREE TIMES DAILY active Not Available Not Available No t Available Lidocaine Viscous 2 % mucosal solution SWISH AND SPIT ONE TEASPOON FUL ( 5 ML'S ) BY MOUTH EVERY 4 HOURS NEEDED FOR PAIN 07/11 completed Not Available Not Available Not Available hydrocodo ne 10 mg-acetam inophen 325 mg tablet TAKE ONE TABLET BY MOUTH EVERY 4 TO 6 HOURS NEEDED FOR PAIN (MAX TWO PER DAY; HOLD WITHIN FOUR HOURS OF PLANNED SLEEP) - 23 DAYS active Not Available Not Available No t Available bupropion HCl SR 100 mg tablet,12 hr sustained -release TAKE ONE TABLET BY MOUTH TWICE DAILY active Not Available Not Available No t Available prednison e 10 mg tablets in a dose pack TAKE DIRECTED PER PACKAGE DIRECTIO NS 09/15 completed Not Available Not Available Not Available cephalexi n 500 mg capsule TAKE ONE CAPSULE BY MOUTH THREE TIMES DAILY 09/15 completed Not Available Not Available Not Available pantopraz ole 40 mg tablet,de layed release TAKE ONE TABLET BY MOUTH ONCE DAILY 09/15 completed Not Available Not Available Not Available venlafaxi ne 37.5 mg tablet TAKE ONE TABLET BY MOUTH EVERY DAY 09/15 completed Not Available Not Available Not Available misoprost ol 200 mcg tablet TAKE FOUR TABLETS BY MOUTH EVERY TWELVE HOURS - REPEAT ONCE 09/15 completed Not Available Not Available Not Available cefdinir 300 mg capsule TAKE ONE CAPSULE BY MOUTH TWICE DAILY 09/15 completed Not Available Not Available Not Available fluticaso ne propionat e 50 mcg/actua tion nasal spray,gina pension daily 01/20 completed 0; Recorded 08/18/19 1:02PM by Milan martini, Office Visit; Not Available Not Available Not Available diazepam 5 mg tablet TAKE ONE TABLET BY MOUTH UPON ARRIVAL FOR PROCEDUR E 01/28 completed Not Available Not Available Not Available escitalop jorden 10 mg tablet TAKE ONE TABLET BY MOUTH EVERY DAY 09/15 completed Not Available Not Available Not Available Vitamin B-12 daily 01/20 completed 0; Recorded 08/18/19 1:02PM by Milan martini, Office Visit; Not Available Not Available Not Available Vitamin D 1 qd active Not Available Not Wendie ilable Not Available Vitamin D3 daily active 0; Recorded 08/18/19 23 1:02PM by Milan martini, Office Visit; Not Available Not Available Not Available 1 qd 01/20 completed Not Available Not Available Not Available Vitamin qd active 0; Recorded 08/18/19 23 1:02PM by Milan martini, Office Visit; Not Available Not Available Not Available Vitamin B12 1 qd active Not Available Not Available Not Available Hydrocodo ne W/Acetami nophen tid 01/20 completed [facility]; 0; Recorded 08/18/19 1:02PM by Milan martini, Office Visit; Not Available Not Available Not Available ProAir HFA 90 mcg/actua tion aerosol inhaler INHALE 2 PUFFS INTO LUNGS FOUR TIMES DAILY NEEDED FOR SHORTNES S OF BREATH OR WHEEZING 01/20 completed Not Available Not Available Not Available RhoGAM Ultra-William tered PLUS 1,500 unit (300 mcg) intramusc ular syringe INJECT 1 SYRINGE BY INTRAMUS CULAR ROUTE. 01/20 completed Not Available Not Available Not Available Gayle 0.35 mg tablet TAKE ONE TABLET BY MOUTH EVERY DAY 2023 active vo JR/tn Not Available Not Available Not Avai lable Narcan 4 mg/actuat ion nasal spray USE DIRECTED INTRANAS ALLY ONCE 09/15 completed Not Available Not Available Not Available DisposeRx packet UTILIZE ONE PACKET FOR VIAL SIZE LESS THAN OR EQUAL TO 30 DRAMS ACCORDIN G TO PACKAGE DIRECTIO NS. active Not Available Not Available No t Available Vitals Date Recorded Body height Body mass index (BMI) Body weight Respiratory rate Oxygen saturation Oxygen saturation in Arterial blood by Pulse oximetry Heart rate Body temperature Systolic And Diastolic Provider Name and Address Organization Details Last Updated DateTime 3 175.26 cm 23 kg/m2 62794.4 0972 g 18 /min 98 % 98 % 74 /min 98.1 [degF] 104/66 mm[Hg] YUNIEL OROZCO [facility] 3 10:01:54 Date Recorded Body height Body mass index (BMI) Body weight Body temperature Oxygen saturation Oxygen saturation in Arterial blood by Pulse oximetry Heart rate Systolic And Diastolic Provider Name and Address Organization Details Last Updated DateTime 3 175.26 cm 21.9 kg/m2 57992.6 7 g 97.1 [degF] 98 % 98 % 74 /min 112/70 mm[Hg] HE CRAWFORD [facility] 3 11:12:38 Date Recorded Body height Body mass index (BMI) Body weight Oxygen saturation Oxygen saturation in Arterial blood by Pulse oximetry Heart rate Respiratory rate Body temperature Systolic And Diastolic Provider Name and Address Organization Details Last Updated DateTime 3 175.26 cm 20.6 kg/m2 82317.7 4 g 98 % 98 % 80 /min 18 /min 98.1 [degF] 100/60 mm[Hg] MILAN REEDER [facility] 3 14:22:02 Date Recorded Body height Body mass index (BMI) Body weight Body temperature Oxygen saturation Oxygen saturation in Arterial blood by Pulse oximetry Heart rate Systolic And Diastolic Provider Name and Address Organization Details Last Updated DateTime 3 175.26 cm 19.9 kg/m2 17149.9 7 g 97.1 [degF] 97 % 97 % 82 /min 118/76 mm[Hg] HE CRAWFORD [facility] 3 16:29:21 Date Recorded Body height Body mass index (BMI) Body weight Respiratory rate Heart rate Oxygen saturation Oxygen saturation in Arterial blood by Pulse oximetry Body temperature Systolic And Diastolic Provider Name and Address Organization Details Last Updated DateTime 3 175.26 cm 20.2 kg/m2 11753.1 5 g 16 /min 70 /min 98 % 98 % 98 [degF] 110/64 mm[Hg] YUNIEL OROZCO [facility] 3 14:39:49 Social History Question Answer Notes LastModified by [facility] Details LastModified Time Tobacco Smoking Status Current Every Day Smoker MAYLIN fam [facility] 09/15/2022 16:47:50 How Much Tobacco Do You Smoke? 1 PPW [email or web address] Information not available 01/20/2023 Sex: Unknown Functional Status Question Answer Note LastModified by [facility] Details LastModified Time Do you use any illicit or recreational drugs? No Information not available 01/20/2023 What is your level of alcohol consumption? None [email or web address] Information not available 01/20/2023 Mental Status None recorded. Family History Nothing Reported. Medical History Condition Response Anxiety Disorder N Ovarian Cancer N Allergies/Hayfever Y Muscle, Joint, or Bone Problems Y Arthritis Y Kidney Stones N Asthma N Lung Disease N Depression N Breast Problem Y Constipation Y Reflux/GERD Y Anesthesia Complications N Liver Disease Y Mental Illness N Pre-Eclampsia N Chronic Ear Infections Y Gynecological History Statement/Question Response Abnormal Pap Y Date of Last Pap Smear 06/16/2022 Most Recent Mammogram 06/07/2021 Obstetrics History GPAL:G 4 P 2 0 1 2 Type Value Full Term 2 Spontaneous 1 Living 2 Total 4 Immunizations Vaccine Type Date Status Note Provider Nam e and Address Organization Details Recorded Time Tdap 11/03/2022 completed Klaus Christensen MD [address] [place] [address], [address], [facility], [facility] 11/03/2022 18:30:40 Past Encounters Encounter ID Performer Location Encounter Start Date Encounter Closed Date Diagnosis/Indication Diagnosis SNOMED-CT Code Diagnosis ICD10 Code Diagnosis Note [id number] Sima Cullen MD [facility] ([facility]) [address] [place] [id number] 09/15/2022 16:36:27 09/15/2022 17:26:43 Low grade squamous intraepithelial lesion on cervical Papanicolaou smear 3952773064 9105 R87.612 1.) cervical biopsy 5 oclock. 2.) cervical biopsy 1 oclock [id number] Klaus Christensen MD [facility] ([facility]) [address] [place] [address] 5 09/21/2022 12:03:47 09/25/2022 11:02:51 Normal in multigravida 6140778436 85810 Z34.83 [id number] Klaus Christensen MD [facility] ([facility]) [address] [place] [id number] 5 09/28/2022 10:39:55 09/28/2022 20:47:27 RhD negative 101265317 Z01.83 [id number] Klaus Christensen MD [facility] ([facility]) [address] [place] [id number] 5 10/05/2022 09:51:11 10/05/2022 10:52:18 Low lying placenta 390083746 O44.43 [id number] Klaus Christensen MD [facility] ([facility]) [address] [place] [id number] 5 10/05/2022 10:49:21 10/05/2022 12:07:51 [id number] Klaus Christensen MD [facility] ([facility]) [address] [place] [id number] 5 10/05/2022 11:49:20 10/05/2022 14:05:18 [id number] Z33.1 [id number] Klaus Christensen MD [facility] ([facility]) [address] [place] [id number] 5 10/19/2022 10:36:58 10/19/2022 18:33:32 Normal in multigravida 4342815978 13241 Z34.83 Gestation period, 32 weeks 1935992 Z3A.32 [id number] Klaus Christensen MD [facility] ([facility]) [address] [place] [id number] 5 11/03/2022 13:45:21 11/03/2022 20:11:32 Normal in multigravida 6966611451 46318 Z34.83 Gestation period, 34 weeks 53927693 Z3A.34 [id number] Klaus Christensen MD [facility] ([facility]) [address] [place] [address] [id number] 5 11/16/2022 09:51:17 11/16/2022 20:16:16 86237632 Z33.1 Gestation period, 36 weeks 19544107 Z3A.36 [id number] Klaus Christensen MD [facility] ([facility]) [address] [place] [address] [id number] 5 11/23/2022 09:18:34 11/23/2022 20:06:35 Gestation period, 37 weeks 59581830 Z3A.37 [id number] Ernie Lynn MD [facility] ([facility]) [address] [place] [id number] 5 11/30/2022 10:27:26 11/30/2022 18:38:58 Normal in multigravida 1422208170 69631 Z34.80 Gestation period, 38 weeks 60451608 Z3A.38 No concerns on today's visit. Anticipato ry guidance provided and all questions answered. [id number] Klaus Christensen MD [facility] ([facility]) [address] [place] [address] 69319-793 5 12/07/2022 09:53:56 12/07/2022 13:48:16 Normal in multigravida 1129070302 86223 Z34.80 Gestation period, 39 weeks 12843700 Z3A.39 [id number] Sima Cullen MD [facility] ([facility]) [address] [place] [id number] 5 01/20/2023 11:08:33 01/20/2023 12:12:45 Pre-surgery evaluation 354699417 Z01.818 for ECC Cervical intraepithelial neoplasia grade 2 581484269 N87.1 [id number] Klaus Christensen MD [facility] ([facility]) [address] [place] [id number] 01/28/2023 13:57:12 01/28/2023 16:58:38 care 088469374 Z39.2 Contracept ion care management 824076157 Z30.9 She would like an IUD. we will order it and call her back. [id number] Sima Cullen MD [facility] ([facility]) [address] [place] [address] [id number] 5 02/02/2023 16:23:47 02/19/2023 09:28:42 Cervical intraepithelial neoplasia grade 2 721744661 N87.1 ECC, 12:00 biopsy, 6:00 biopsy submitted to path [id number] Klaus Christensen MD [facility] ([facility]) [address] [place] [id number] 5 04/07/2023 14:27:35 04/07/2023 16:43:59 Mixed anxiety and depressive disorder 694705020 F41.8 Health Concerns Section Related Observation LastModified by Organization Detai ls LastModified Time None Recorded Concern Status LastModified by Organization Details LastModified Time None Recorded Advance Directives Directive None Recorded Payers Insurance Date Sequence Insurance Name Policy Number Policy Schulz Covered Member ID Schulz Member ID Guarantor Name 03/21/2024 1 [facility] (MEDICAID HMO) Bety Mercer [id number] Bety Mercer 03/21/2024 [facility] (MEDICAID HMO) Bety Mercer [id number] Bety Mercer 11/20/2022 2 [place] Bety Mercer [id number] Crystal Eschmann OBGyn Episode Ob Episode Information Episode Created Date Number of Fetuses Patient Bloodtype Patient rh Status Prepregnancy Weight lbs Domestic Partner Domestic Partner Phone Father Name City Assessor Status 09/22/19 1 O Negative Aki OPEN Fetus Data First Name Last Name Admitted to NICU Weight (g) Sex Living Outcome Pediatric Complications Fetus ID Race Codes Race Delivery Type Kristina 3118.44 5 M 528 Problems Problem Notes Problem Name Start Date End Date Resolution Snomed Code Not e RhD negative 06/15/2022 MEDICATION 133630888 RhoGa m injection given 09/28/22 Normal in multigravida 04/08/2022 [id number] Marcos Calculation Initial Marcos Date Initial Exam Date Initial Exam Provider Initial Ultrasound Date Last Menstrual Period Date Ultra Sound Weeks Gestation 12/13/2022 09/21/2022 04/22/2022 0 Eighteen To Twenty Week Marcos Update Ultra Sound Date Fundal Height At Umbil Quickening Date Ultra Sound Latest Weeks Gestation Final Marcos Confirmed By Final Marcos Confirmed Date Final Marcos Date Ultra Sound Latest Days Gestation 0 0 Pre- Flowsheet Flowsheet Date 09/21/2022 Mitchell Score Blood Edema Fundus Height Fundus Units Glucose Ketones Leukocytes Nitrite Labor Signs Protein Cervic Dilation Cervic Effacement Cervic Station none none none Negative neg Type Weight in lbs Pre/Post Dialysis Refused Weight 149.646203204141 BP Diastolic BP Location Tested BP Systolic BP Type 62 L arm 118 sitting Fetus Heart Rate Present A 146 Present Fetus Movement A Yes Comments abd pain, cramping, spotting pt had a colposcopy last week, dizziness, Pt will come back on Wednesday09/25/22 for glucose screen and rhogam shot Flowsheet Date 09/28/2022 Mitchell Score Blood Edema Fundus Height Fundus Units Glucose Ketones Leukocytes Nitrite Labor Signs Protein Cervic Dilation Cervic Effacement Cervic Station Type Weight in lbs Pre/Post Dialysis Refused Weight 151.354788579937 BP Diastolic BP Location Tested BP Systolic BP Type 60 110 Fetus Heart Rate Present A 132 Present Fetus Movement A Yes Comments RhoGam injection given Flowsheet Date 10/05/2022 Mitchell Score Blood Edema Fundus Height Fundus Units Glucose Ketones Leukocytes Nitrite Labor Signs Protein Cervic Dilation Cervic Effacement Cervic Station Type Weight in lbs Pre/Post Dialysis Refused BP Diastolic BP Location Tested BP Systolic BP Type Fetus Heart Rate Present Fetus Movement Comments Flowsheet Date 10/05/2022 Mitchell Score Blood Edema Fundus Height Fundus Units Glucose Ketones Leukocytes Nitrite Labor Signs Protein Cervic Dilation Cervic Effacement Cervic Station Type Weight in lbs Pre/Post Dialysis Refused BP Diastolic BP Location Tested BP Systolic BP Type Fetus Heart Rate Present Fetus Movement Comments Flowsheet Date 10/05/2022 Mitchell Score Blood Edema Fundus Height Fundus Units Glucose Ketones Leukocytes Nitrite Labor Signs Protein Cervic Dilation Cervic Effacement Cervic Station none 30 cm none none Negative Type Weight in lbs Pre/Post Dialysis Refused Weight 151.580625441764 BP Diastolic BP Location Tested BP Systolic BP Type 60 R arm 110 sitting Fetus Heart Rate Present A 140 Present Fetus Movement A Yes Comments abd pain, cramping, irreg co ntractions, SOB, nausea, script given for TDap, pt states she has a bad tooth and will get her glucose screen when she gets it taken care of Flowsheet Date 10/12/2022 Mitchell Score Blood Edema Fundus Height Fundus Units Glucose Ketones Leukocytes Nitrite Labor Signs Protein Cervic Dilation Cervic Effacement Cervic Station Type Weight in lbs Pre/Post Dialysis Refused BP Diastolic BP Location Tested BP Systolic BP Type Fetus Heart Rate Present Fetus Movement Comments u/s on 10/05/22, MARCOS 12/13/22, E GA 30.1. No placenta Previa seen Flowsheet Date 10/16/2022 Mitchell Score Blood Edema Fundus Height Fundus Units Glucose Ketones Leukocytes Nitrite Labor Signs Protein Cervic Dilation Cervic Effacement Cervic Station Type Weight in lbs Pre/Post Dialysis Refused BP Diastolic BP Location Tested BP Systolic BP Type Fetus Heart Rate Present Fetus Movement Comments RA completed for [employer] Flowsheet Date 10/19/2022 Mitchell Score Blood Edema Fundus Height Fundus Units Glucose Ketones Leukocytes Nitrite Labor Signs Protein Cervic Dilation Cervic Effacement Cervic Station 32 cm none none Backpain neg Type Weight in lbs Pre/Post Dialysis Refused Weight 152.930361943358 BP Diastolic BP Location Tested BP Systolic BP Type 62 110 Fetus Heart Rate Present A 144 Present Fetus Movement A Yes Comments Flowsheet Date 11/03/2022 Mitchell Score Blood Edema Fundus Height Fundus Units Glucose Ketones Leukocytes Nitrite Labor Signs Protein Cervic Dilation Cervic Effacement Cervic Station none trace Edon [place] trace Type Weight in lbs Pre/Post Dialysis Refused Weight 156.542594395462 BP Diastolic BP Location Tested BP Systolic BP Type 64 112 Fetus Heart Rate Present A 144 Present Fetus Movement A Yes Comments heartburn/ back pain/ Headac hes/ irreg contractions/ TDaP given today Flowsheet Date 11/16/2022 Mitchell Score Blood Edema Fundus Height Fundus Units Glucose Ketones Leukocytes Nitrite Labor Signs Protein Cervic Dilation Cervic Effacement Cervic Station none none Negative neg 1cm 30% - 3 Type Weight in lbs Pre/Post Dialysis Refused Weight 158.580506242483 BP Diastolic BP Location Tested BP Systolic BP Type 68 R arm 118 sitting Fetus Heart Rate Present A 138 Present Fetus Movement A Yes Comments Group B today, abdominal rogelio n, vag pressure, edema in hands, heartburn, back and pelvic pain Flowsheet Date 11/23/2022 Mitchell Score Blood Edema Fundus Height Fundus Units Glucose Ketones Leukocytes Nitrite Labor Signs Protein Cervic Dilation Cervic Effacement Cervic Station 35 cm none none Negative Phani [place] trace 1cm 20% -3 Type Weight in lbs Pre/Post Dialysis Refused Weight 158.606720987859 BP Diastolic BP Location Tested BP Systolic BP Type 74 120 Fetus Heart Rate Present A 152 Present Fetus Movement A Yes Comments low back pain, vaginal press ure, abdominal pain and cramping, edema in hands, shortness of breath Flowsheet Date 11/24/2022 Mitchell Score Blood Edema Fundus Height Fundus Units Glucose Ketones Leukocytes Nitrite Labor Signs Protein Cervic Dilation Cervic Effacement Cervic Station Type Weight in lbs Pre/Post Dialysis Refused BP Diastolic BP Location Tested BP Systolic BP Type Fetus Heart Rate Present Fetus Movement Comments OB records faxed. Flowsheet Date 11/30/2022 Mitchell Score Blood Edema Fundus Height Fundus Units Glucose Ketones Leukocytes Nitrite Labor Signs Protein Cervic Dilation Cervic Effacement Cervic Station neg none 37 cm none none none trace 1cm 30% -3 Type Weight in lbs Pre/Post Dialysis Refused With clothes 0.0 BP Diastolic BP Location Tested BP Systolic BP Type 70 L arm 122 sitting Fetus Heart Rate Present A 130 Present Fetus Movement A Yes Comments mild bloody mucous and brown discharge Flowsheet Date 12/07/2022 Mitchell Score Blood Edema Fundus Height Fundus Units Glucose Ketones Leukocytes Nitrite Labor Signs Protein Cervic Dilation Cervic Effacement Cervic Station none Edon [place] trace Type Weight in lbs Pre/Post Dialysis Refused With clothes 156.327433905356 BP Diastolic BP Location Tested BP Systolic BP Type 66 L arm 104 sitting Fetus Heart Rate Present A 152 Present Fetus Movement A Yes Comments pelvic pressure, cramps, pin k spotting after intercourse, Flowsheet Date 01/20/2023 Mitchell Score Blood Edema Fundus Height Fundus Units Glucose Ketones Leukocytes Nitrite Labor Signs Protein Cervic Dilation Cervic Effacement Cervic Station Type Weight in lbs Pre/Post Dialysis Refused With clothes 148.903866818884 BP Diastolic BP Location Tested BP Systolic BP Type 70 R arm 112 sitting Fetus Heart Rate Present Fetus Movement Comments Flowsheet Date 01/28/2023 Mitchell Score Blood Edema Fundus Height Fundus Units Glucose Ketones Leukocytes Nitrite Labor Signs Protein Cervic Dilation Cervic Effacement Cervic Station Type Weight in lbs Pre/Post Dialysis Refused Weight 139.421891611858 BP Diastolic BP Location Tested BP Systolic BP Type 60 100 sitting Fetus Heart Rate Present Fetus Movement Comments Flowsheet Date 02/02/2023 Mitchell Score Blood Edema Fundus Height Fundus Units Glucose Ketones Leukocytes Nitrite Labor Signs Protein Cervic Dilation Cervic Effacement Cervic Station Type Weight in lbs Pre/Post Dialysis Refused With clothes 135.345675739366 BP Diastolic BP Location Tested BP Systolic BP Type 76 R arm 118 standing Fetus Heart Rate Present Fetus Movement Comments Flowsheet Date 04/07/2023 Mitchell Score Blood Edema Fundus Height Fundus Units Glucose Ketones Leukocytes Nitrite Labor Signs Protein Cervic Dilation Cervic Effacement Cervic Station Type Weight in lbs Pre/Post Dialysis Refused Weight 137.408381363089 BP Diastolic BP Location Tested BP Systolic BP Type 64 110 Fetus Heart Rate Present Fetus Movement Comments Menstrual History Last Menstrual Date Menses Monthly On Bcp Conception Prior Menses Frequency Hcg Plus Date Menarche Onset Age Genetic Screening And Infection History Question Response Note Patient's Age Will Be 35 Yea rs Or Older At Estimated Date of Delivery false Thalassemia (Nepalese, Romanian, Mediterranean, Or Background): MCV < 80 false Neural Tube Defect (Meningom yelocele, Spina Bifida, Or Anencephaly) false Congenital Heart Defect false Down Syndrome false Otoniel-Sachs (eg, Pentecostalism, Cajun, Latvian-[place]) f alse Ludwin Disease false Sickle Cell Disease Or Trait () false Hemophilia Or Other Blood Disorders false Muscular Dystrophy false Cystic Fibrosis false [place]'s Chorea false Intellectual Disability/Autism false If Yes, Was Person Tested For Fragile X? false Other Inherited Genetic Or C hromosomal Disorder false Maternal Metabolic Disorder (eg, Type 1 Diabetes, PKU) false Patient Or Baby's Father Had A Child With Defects Not Listed Above false Recurrent Loss, Or A Stillbirth false Medications (including Suppl ements, Vitamins, Herbs, OTC Drugs), Illicit/Recreational Drugs, Alcohol false If Yes, Agent(s) And Strength/Dosage false Any Other Genetic History true Porter syndrome runs in family Live With Someone With TB Or Exposed To TB false Patient Or Partner Has Histo ry Of Genital Herpes false Rash Or Viral Illness Since Last Menstrual Period false History Of STD, Gonorrhea, C hlamydia, HPV, Syphilis true hpv pos Other Infection History false History of HIV false History of Hepatitis false Prior GBS-infected child false Hemoglobinopathy Or Carrier false Other Structural Defect false Recent Travel History Outside of Country false Mental Retardation/Autism false Delivery Information Delivery Date Delivery Type Labor Anesthesia Weeks Gestation Incision Type Labor Labor Length Hrs Delivered By Post Complications Tubal Sterilization Discharge Date Comments 3 Sponta neous 39 Klaus Christensen MD None Discharge Information Feeding Method Contraceptive Method Maternal HG B and HCT Levels
--- OUTSIDE RECORDS SUMMARY | 2025-01-02 12:30 | XMS_ITS | Encounter Summary ---
Author Organization [employer] Address 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
--- OUTSIDE RECORDS SUMMARY | 2025-01-02 12:30 | XMS_ITS | Encounter Summary ---
Author Organization [employer] Address 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
--- OUTSIDE RECORDS SUMMARY | 2025-01-02 12:30 | XMS_ITS | Patient Health Record ---
Author Organization [facility] Address [address] [place], [place] [address] Care Team Providers Care Claims Configuration Analyst Name Role Phone Daysi Haro APN Primary Care Provider Unava blaiseable Trice ONOFRE, Leon Unavailable [phone] Josh BLOW TORCH OPERATOR, Shi Unavailable Unavailable Thierno BLOW TORCH OPERATOR, Sabrina Unavailable [phone] Allergies Allergen (clinical drug ingredient) Drug/Non Drug Allergy documented on EMR Reaction Allergy Type Onset Date Status amoxicillin amoxicillin rash Drug Allergy Act jovanny Results Component Value Reference Range Notes Urine tox screen / MS if ind icated Reviewed date:08/08/2024 11:33:31 AM Interpretation:Consistent Performing Lab: Notes/Report: Consistent Urine tox screen / MS if ind icated Reviewed date:04/12/2024 12:49:11 PM Interpretation:Consistent Performing Lab: Notes/Report: Consistent Reason For Referral Reason Sleep Study (48527)/ CPAP Titration Study (07900) as appropriate Diagnosis 1 Hypersomnia, unspeci fied (G47.10) Referral Organization [facility] Referring Provider First Name Leon Referring Provider Last Name Trice Referring Provider Speciality Pain Manag ement Referred Provider Lab, Sleep General Notes CPT CODE 27034 APPRO Jose VALADEZ Nbr: [id number], VALID: 08/14/2024 - 10/14/2024, Cammy Benitez 08/14/2024 10:52:31 AM > referral faxedEmmanuel Brenda 09/04/2024 03:03:47 PM > spoke with Paulette at [facility] Sleep Lab - patient is scheduled as above Referral Priority Routine Referral Appointment Date 09/12/2024 Reason Evaluation for possi ble treatment (clinic closing due to provider's snf) Diagnosis 1 Vertebrogenic low ba ck pain (M54.51) Diagnosis 2 Intervertebral disc disorders with radiculopathy, lumbar region (M51.16) Diagnosis 3 Spondylosis without myelopathy or radiculopathy, lumbar region (M47.816) Diagnosis 4 Sacroiliitis, not el sewhere classified (M46.1) Referral Organization [facility] [employer] Referring Provider First Name Leon Referring Provider Last Name Trice Referring Provider Speciality Pain Manag ement Referred Provider Interventional Pain Management, . Referred Provider Specialty Pain Managem ent General Notes Anju Little 10:52:12 AM >FAXED TODAY. Referral Priority Routine Referral Appointment Date 11/17/2024 Medications Medication SIG (Take, Route, Frequency, Duration) Notes Start Date End Date Status acetaminophen-hydrocodo ne 325 mg-10 mg 1 tab orally Q4-6H prn pain (max 3/day; hold within 4H of planned sleep); Duration: 28 days Do not fill prior to 11/03/24. ICD-10: G89.29 10/04/2024 Active Multivitamins Multivitamins with Folic Acid 0.8 mg 1 tab(s) orally once a day; Duration: 30 day(s) Active acetaminophen-hydrocodo ne 325 mg-10 mg 1 tab orally Q4-6H prn pain (max 3/day; hold within 4H of planned sleep); Duration: 28 days Do not fill prior to 10/06/24. ICD-10: G89.29 10/04/2024 Active ibuprofen 800 mg 1 tab(s) orally 3 times a day Active Gayle (28 Day) 0.35 mg 1 tab(s) orally once a day; Duration: 28 day(s) Active acetaminophen-hydrocodo ne 325 mg-10 mg 1 tab orally Q4-6H prn pain (max 3/day; hold within 4H of planned sleep); Duration: 28 days Do not fill prior to 12/01/24. ICD-10: G89.29 10/04/2024 Active pantoprazole 40 mg 1 tab(s) orally once a day Active Narcan 4 mg/0.1 mL as directed intranasally once 01/22/2022 Active acetaminophen 325 mg 1 tab orally every 4 hours Active Social History Tobacco Use: Social History Observation Description Date Details (start date - stop date) Current Smoker NA - NA Tobacco use: Question Answer Notes : current smoker Are you interested in quitting? Not ready to clarissa t How many cigarettes a day do you smoke? 6-10 How often do you smoke cigarettes? every day How soon after you wake up do you smoke your fir st cigarette? 6-30 min When did you start smoking? 2002 AUDIT-C (Standard) Question Answer Notes Did you have a drink contain ing alcohol in the past year? Yes How often did you have six o r more drinks on one occasion in the past year? 2 to 4 times a month (2 points) How many drinks did you have on a typical day when you were drinking in the past year? 1 or 2 drinks (0 point) How often did you have a dri nk containing alcohol in the past year? 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 (Z79.891) Active confirmed Problem Anxiety disorder (051276811) Other specified anxiety disorders (F41.8) Active confirmed Problem Hypersomnia (55120764) Hypersomnia, unspecified (G47.10) Active confirmed Problem Sleep disorder (88771033) Other sleep disorders (G47.8) Active confirmed Problem Chronic pain (17239907) Other chronic pain (G89.29) Active confirmed Problem Radiculopathy due to lumbar intervertebral disc disorder (146181795242610) Intervertebral disc disorders with radiculopathy, lumbar region (M51.16) Active confirmed Problem Backache (743547008) Other dorsalgia (M54.89) Active confirmed Problem Long-term current use of drug therapy (735519087) Other intermediate (current) drug therapy (Z79.899) Active confirmed Problem 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) Vertebrogenic low back pain (M54.51) Active confirmed Vital Signs Temperature 97.3 degrees Fahrenheit 10/04/2024 Oximetry 97 % 10/04/2024 Blood pressure diastolic 72 mm Hg 10/04/2024 Height 68 in 10/04/2024 Blood pressure systolic 119 mm Hg 10/04/2024 Weight 157.4 lbs 10/04/2024 BMI 23.93 kg/m2 10/04/2024 Encounters Encounter Location Date Provider Diagnosis [facility] [address] [place], [place] [id number] 02/17/2024 Sabrina Pa Vertebrogenic low ba ck pain M54.51 ; Other chronic pain G89.29 and Other sleep disorders G47.8 [facility] [address] [place], [place] [id number] 04/12/2024 Leon Carnes Vertebrogenic low ba ck pain M54.51 ; Other chronic pain G89.29 ; Other sleep disorders G47.8 and 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 analgesic Z79.891 [facility] [address] [place], [place] [id number] 06/13/2024 Leon Carnes Vertebrogenic low ba ck pain M54.51 ; Other chronic pain G89.29 and Other sleep disorders G47.8 [facility] [address] [place], [place] [id number] 08/08/2024 Leon Carnes Vertebrogenic low ba ck pain M54.51 ; Other chronic pain G89.29 ; Hypersomnia, unspecified G47.10 and skilled nursing (current) use of opiate analgesic Z79.891 [facility] [address] [place], [place] [id number] 10/04/2024 Leon Carnes Vertebrogenic low ba ck pain M54.51 ; Other chronic pain G89.29 and Hypersomnia, unspecified G47.10 [facility] [address] [place], [place] [id number] 03/22/2024 Leon Carnes [facility] [place] [address] [place], [place] [id number] 10/31/2024 Leon Carnes Assessments Encounter Date Diagnosis (ICD Code) Assessment Notes Treatment Notes Treatment Clinical Notes Section Notes 02/17/2024 Vertebrogenic low back pain (ICD-10 - M54.51) Chronic axial lumbosacral spine pain. 10/04/2024 Other chronic pain (ICD-10 - G89.29) Patient reports that taking her current pain medication allows her to work in her yard. Plan to continue oral opioid medication at today's visit. 10/04/2024 Vertebrogenic low back pain (ICD-10 - M54.51) Chronic axial lumbosacral spine pain. 08/08/2024 Other chronic pain (ICD-10 - G89.29) Patient reports that taking her current pain medication allows her to work in her yard. Plan to continue oral opioid medication management. 08/08/2024 Vertebrogenic low back pain (ICD-10 - M54.51) Chronic axial lumbosacral spine pain. 06/13/2024 Other chronic pain (ICD-10 - G89.29) Patient reports that taking her current pain medication allows her to exercise daily. Plan to continue oral opioid medication management. 06/13/2024 Vertebrogenic low back pain (ICD-10 - M54.51) Chronic axial lumbosacral spine pain. 04/12/2024 Other chronic pain (ICD-10 - G89.29) Patient reports that taking her current pain medication allows her to care for her family. Plan to continue oral opioid medication management. 04/12/2024 Vertebrogenic low back pain (ICD-10 - M54.51) Chronic axial lumbosacral spine pain. 08/08/2024 Hypersomnia, unspecified (ICD-10 - G47.10) Patient is interested in completion of a sleep study. She has complaints of frequent awakenings, non-refreshing sleep, restless legs, excessive daytime sleepiness, restlessness during sleep, and difficulty in sleeping. Recommend an in-lab study, however, will proceed with insurance approved study. Plan to continue to restrict opioid use in relation to sleep for safety concerns. 04/12/2024 Other sleep disorders (ICD-10 - G47.8) Plan to continue to restrict opioid use in relation to sleep for safety concerns. 06/13/2024 Other sleep disorders (ICD-10 - G47.8) Plan to continue to restrict opioid use in relation to sleep for safety concerns. 10/04/2024 Hypersomnia, unspecified (ICD-10 - G47.10) Plan to continue to restrict opioid use in relation to sleep. 02/17/2024 Other sleep disorders (ICD-10 - G47.8) Plan to continue opioid restriction in relation to sleep for safety concerns. 02/17/2024 Other chronic pain (ICD-10 - G89.29) Patient reports that taking her current pain medication allows her to pack up her recently ye[place] apartment. Plan to continue oral opioid medication management. 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 This places the patient in the high risk category, warranting more frequent screening. Plan 2 month visit pending continued compliance with patient's Treatment Agreement. Plan urine toxicology screen today to monitor for presence of any unprescribed or illicit controlled substance(s), as well as prescribed hydrocodone. 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 This places the patient in the high risk category, warranting more frequent screening. Plan 2 month visit pending continued compliance with patient's Treatment Agreement. Plan urine toxicology screen today to monitor for presence of any unprescribed or illicit controlled substance(s), as well as prescribed [place]. 04/12/2024 Other The service was provided by LUIS Santiago, as part of the ongoing care plan established by Leon Carnes MD, who was present in the office for direct supervision during the encounter. 06/13/2024 Other The service was provided by LUIS Santiago, as part of the ongoing care plan established by Leon Carnes MD, who was present in the office for direct supervision during the encounter. 10/04/2024 Other The service was provided by LUIS Santiago, as part of the ongoing care plan established by Leon Carnes MD, who was present in the office for direct supervision during the encounter. Patient was provided with a letter at today's visit informing patient that this clinic is closing due to Dr. Carnes's snf; see scanned document. Terminal prescriptions were given to the patient along with tapering instructions. 08/08/2024 Other The service was provided by LUIS Santiago, as part of the ongoing care plan established by Leon Carnes MD, who was present in the office for direct supervision during the encounter. 02/17/2024 Other Plan Of Treatment No Information Insurance Providers Payer Name Payer Address Payer Phone Subscriber Number Group Number Insured Name Patient Relationship to Insured Coverage Start Date Coverage End Date [facility] ATTN CLAIMS [address] [place] [address] [id number] Bety Mercer Self - patient is the insured Medical (General) History Medical History History ICD Code Chronic pain Low back pain Lumbar spondylosis and disc disease Sacroiliitis Fibromyalgia Headaches Anxiety and depression disorder Hypoglycemia Melasma Costochondritis Benign neoplasm of lymph nodes Unspecified fracture of right calcaneus Numbness and tingling in right arm Osteoarthritis GERD Enlarged liver Miscarriage on 12/11/21 COVID-19 (2021) Tobacco use, possible COPD Sleep disorder, history of h ypersomnia, history of negative sleep study for sleep apnea (AHI = 1 and REM AHI = 3) Surgical History Surgery Date(Month/Year) Tonsillectomy, 1990 Right heel reconstruction, performed at [facility] by Dr. Le, 12/22/18 Right axillary lymph node ex cision, performed at [facility] by Dr. Tatum, 08/01/19 Dilation and curettage, performed at [facility] , 02/25/22 Tubal ligation and cone biopsy, performe d at [facility], 09/07/23 Repair of tendon, right hand , performed at [facility] in [place], [place] by Dr. Cochran, 10/19/23 Exploratory laparotomy, removal of endom etriosis, performed at [facility], 03/21/24 Hospitalization History Reason Date(Month/Year) Child , treated at [facility], 12/2022
--- OUTSIDE RECORDS SUMMARY | 2025-01-02 12:30 | XMS_ITS | Encounter Summary ---
Author Organization [employer] [facility] Address 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 Gender Identity Not on file Sexual Orientation Not on file documented as of this encounter Plan of Treatment Not on file documented as of this encounter Procedures Procedure Name Priority Date/Time Associated Diagnosis Comments XR KNEE 3 VW RIGHT Routine 12/23/2008 7: 25 PM CDT documented in this encounter Results * XR KNEE 3 VW RIGHT (12/23/2008 7:25 PM CDT) Anatomical Region Laterality Modality Lower Extremity Other 12/23/2008 7:25 PM CDT Narrative 12/23/2008 7:33 PM CDT [id number] [place], [place] [address] Admit Date: 12/23/2008 BETY TREVIÑO Sex: F Admit Prov: VICKIE LEVY Date: 1985 Primary Care Prov: CMRN: [id number] [id number] [facility] Ordering Prov: N/A Accession Number: [id number] Interpretation Examination: Right knee. 3 views Clinical History: Pain. Findings: Examination of the right knee fails to demonstrate evidence of fracture, dislocation, or subluxation. No distinct joint space abnormality or loose intra-articular foreign body is seen. Impression: Radiographically normal right knee. . Dictated by: Sonja CHILEL 12/23/2008 19:32 Electronically signed by: Sonja CHILEL 12/23/2008 19:32 Procedure Note Von Chilel MD - 12/23/2008 [facility] [address] [place], [place] [address] Admit Date: 12/23/2008 BETY TREVIÑO Sex: F Admit Prov: VICKIE LEVY Date: 1985 Primary Care Prov: CMRN: [id number] [id number] IM[facility] Ordering Prov: N/A Interpretation Examination: Right knee. 3 views Clinical History: Pain. Findings: Examination of the right knee fails to demonstrate evidenceof fracture, dislocation, or subluxation. No distinct joint spaceabnormality or loose intra-articular foreign body is seen. Impression: Radiographically normal right knee. . Dictated by: Sonja CHILEL 12/23/2008 19:32 Electronically signed by: Sonja CHILEL 12/23/2008 19:32 Vickie Levy MD DIAGNOSTIC IMAGING ORDERABLES F inal Result documented in this encounter Visit Diagnoses Not on filedocumented in this encounter Care Teams Port Cdl A Driver Relationship Specialty Start Date End Date Miguel Mcdowell III, DO [address] [place] [phone] PCP - General Family Practice 01/14/17 documented as of this encounter
--- OUTSIDE RECORDS SUMMARY | 2025-01-02 12:30 | XMS_ITS | Encounter Summary ---
Author Organization [facility] Address [address] [place] [address] Care Team Providers Care Environmental Protection Inspector Name Role Phone July BUCIO DO, John Robert Primary Care Provider Encounter Details Date Type Department Care Team (Latest Contact Info) Description 07/19/2006 Outpatient Historical HIS [facility] [place] [address] [place] [id number] Acute Bronchitis (Primary Dx) Social History Tobacco Use Types Packs/Day Years Used Date Smoking Tobacco: Never Assessed Comments Unknown Sex and Gender Information Value Date Recorded Sex Assigned at Not on file 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
--- OUTSIDE RECORDS SUMMARY | 2025-01-02 12:30 | XMS_ITS | Clinical Summary ---
Author Organization [employer] [facility] Address [address] [address] [place] [address] Phone Care Team Providers Care Bench Shear Operator Name Role Phone July BUCIO DO Miguel Zepeda Primary Care Provider Allergies Active Allergy Reactions Criticality Noted Date Comments Amoxicillin Hives High 01/14/2017 Vancomycin Other (See Comments) 10/18/2023 Red Man Syndrome Medications ibuprofen (MOTRIN) 800 mg tablet take one tablet by mouth three times daily as needed for pain 09/07/2023 Active acetaminophen (TYLENOL) 325 mg tablet TAKE ONE TABLET BY MOUTH EVERY 4 HOURS NEEDED FOR FEVER OR pain 09/07/2023 Active cephALEXin (KEFLEX) 500 mg capsule Take 500 mg by mouth 4 times daily. Active oxyCODONE-aceta minophen (Percocet) 5-325 mg tabletIndicatio ns:Flexor tendon laceration of finger with open wound, initial encounter Take 1 Tablet by mouth every 4 hours as needed for Pain. Max Daily Amount: 6 Tablets 20 Tablet 10/19/2023 Active Active Problems No known active problems Encounters Date Type Department Care Team Description 11/21/2024 External Device Data ST[facility] ABSTRACTION Provider, Abstract 10/26/2024 External Device Data [facility] ABSTRACTION Provider, Abstract 10/25/2024 External Device Data [facility] ABSTRACTION Provider, Abstract 10/24/2024 External Device Data [facility] ABSTRACTION Provider, Abstract from Last 3 Months Immunizations Immunization Administration Dates Next Due (ADACEL/BOOSTRIX)(10 YR UP) TDAP VACCINE, 0.5ML, IM 12/15/2010 Social History Tobacco Use Types Packs/Day Years Used Date Smoking Tobacco: Every Day Cigarettes 1 9 Smokeless Tobacco: Never Tobacco Cessation:Ready to Q uit: Not Asked; Counseling Given: Not Answered Alcohol Use Standard Drinks/Week Comments Yes 0 (1 standard drink = 0.6 oz pur e alcohol) rarely Comments No Sex and Gender Information Value Date Recorded Sex Assigned at Not on file 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 Gender Identity Not on file Sexual Orientation Not on file Last Filed Vital Signs Vital Sign Reading Time Taken Comments Blood Pressure 116/80 12/15/2023 1:19 PM CDT Pulse 64 10/19/2023 4:15 PM CDT Temperature 37.2 C (99 F) 10/19/2023 3:53 PM CDT Respiratory Rate 16 10/19/2023 4:15 PM CDT Oxygen Saturation 99% 10/19/2023 4:15 PM CDT Inhaled Oxygen Concentration - - Weight 64 kg (141 lb) 12/15/2023 1:19 PM CDT Height 172.7 cm (5' 8 ) 12/15/2023 1:19 PM CDT Body Mass Index 21.44 12/15/2023 1:19 PM CDT Plan of Treatment Health Maintenance Due Date Last Done Comments HPV VACCINES (1 - 3-dose series) 1999 HEPATITIS B VACCINES (1 of 3 - 19+ 3-dose series) 2003 HPV/Cotest (21-29) 2005 CERVICAL CANCER SCREENING 2014 HPV/Cotest (30-65) 2014 PAP SMEAR 2014 BREAST CANCER SCREENING 2024 INFLUENZA VACCINE (#1) 2025 DTAP/TDAP/TD VACCINES (4 - T d or Tdap) 10/15/2033 10/16/2023, 11/03/2022, 12/15/2010 Insurance HE[employer] MEDICAID Advance Directives For more information, please contact: [phone] * Full Code (Latest Code Status on File) Date Activated Date Inactivated Comments 10/19/2023 12:22 PM 10/19/2023 7:41 PM Care Teams Bench Shear Operator Relationship Specialty Start Date End Date Miguel Mcdowell III, DO [address] [place] [phone] PCP - General Family Practice 01/14/17
--- NOTE | 2025-01-02 12:45 | ED_ITS ---
HPI - General Adult 2 General: Chief complaint: Back Pain/Injury Stated complaint: low rt back pain / dental Time Seen by Provider: 01/02/25 12:29 Source: patient Mode of arrival: ambulatory Limitations: no limitations History of Present Illness: 39-year-old female with history of chron ic back pain who presents to the ED with complaint of worsening 6/10 right lower back pain over the past 3 days ago. Patient states she has a pain management doctor but he retired so she is establishing care with a new provider around January 16-Dr. Chong with [facility]. She states that she ran out of her hydrocodone prescription and was not able to fill it because she is waiting to establish care with the new provider. She has been taking ibuprofen 800 mg, which she states does not help her pain. She also reports a pain radiating down her right leg with intermittent numbness and tingling. 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 Denies any bowel or bladder incontinence. She states that she does not remember any recent trauma or injury to her back, but she may have 'twisted it the wrong way . Patient also reports of right upper dental pain and abscess, onset 2 days ago. She was seen by a dentist about 2 to 3 months ago, who recommended extracting the tooth. She states that she is unable to afford that at this time. Her last flareup was about 2 months ago, which she reports her dentist placed her on Clindamycin at that time. She states that she has been taking ibuprofen for this pain, which has not helped. No other complaints at this time. Onset (ago): day(s) (3) Location: back Radiation: other (Right leg) Severity scale (1-10): 6 Quality: sharp Pain Consistency: intermittent Relieving factors: none Exacerbating factors: movement Associated symptoms: Reports weakness and other (Numbness/tingling); Deny chest pain, dyspnea, headache(s), malaise, nausea or rash Treatments prior to arrival: NSAID Related Data Home Medications ?Medication ?Instructions ?Recorded ?Confirmed fluticasone propionate 50 2 spray intranasal DAILY PRN 08/19/23 12/22/24 mcg/actuation nasal allergies spray,suspension Previous Rx's ?Medication ?Instructions ?Recorded albuterol sulfate 90 mcg/actuation 2 puff inhalation Q ID PRN 01/12/22 aerosol inhaler (ProAir HFA) shortness of breath or wh eezing #6.7 grams acetaminophen 325 mg capsule 325 mg PO Q4H PRN fever o r pain 03/21/24 #60 caps hydrocodone 5 mg-acetaminophen 325 1 tab PO Q4H PRN pa in #10 tabs 03/21/24 mg tablet elagolix 150 mg tablet (Orilissa) 150 mg PO DAILY dysm enorrhea, 05/01/24 andometriosis #30 tabs pantoprazole 40 mg tablet,delayed 40 mg PO DAILY #30 t abs 08/07/24 release (Protonix) ibuprofen 800 mg tablet 800 mg PO TID PRN pain #60 t abs 11/17/24 meloxicam 15 mg tablet 15 mg PO DAILY #30 tabs 11/05 08/29 estradiol 0.01% (0.1 mg/gram) 1 appful vaginal DAILY # 42.5 grams 12/15/24 vaginal cream (Estrace) clindamycin HCl 300 mg capsule 300 mg PO Q6H 7 days #2 8 caps 01/02/25 hydrocodone 5 mg-acetaminophen 325 1 tab PO Q6H PRN pa in #15 tabs 01/02/25 mg tablet Allergies Allergy/AdvReac Type Severity Reaction Status Date / Time lidocaine Allergy Unknown Verified 01/02/25 12:32 Penicillins Allergy ALGY-Hives Verified 01/02/25 12:32 vancomycin Allergy ALGY-Rash Verified 01/02/25 12:32 Review of Systems 2 Const: Denies: fever(s), chills, body aches, fatigue or malaise ENMT: Reports: dental pain; Denies: throat pain or odynophagia Card: Denies: chest pain Resp: Denies: dyspnea GI: Denies: nausea or change in bowel habits : Denies: difficulty voiding or urinary incontinence Musc: Reports: back pain; Denies: neck pain, extremity pain, extremity swelling, joint pain, joint swelling, joint redness or limited range of motion Skin/Breast: Denies: rash Neuro: Reports: numbness in extremities (intermittent-R LE) and difficulty walking (sometimes due to back pain); Denies: headache(s) or weakness in extremities PFSH ED 2 PFSH: Medical History Psychiatric care Enlarged lymph node GERD (gastroesophageal reflux disease) Change in bowel habit Breast lump Axillary lymphadenopathy Hypoglycemia GERD (gastroesophageal reflux disease) Surgical History History of laparoscopy (~03/21/24) Diagnostic laparoscopy performed by Jacinto at [facility] for CPP, dyspareunia. Mild endometriosis noted on the left pelvic wall fossa and were fulgurated. Otherwise normal pelvic/abd cavity Hx of colonoscopy Hx of dilation and curettage H/O hand surgery (~10/2023) History of lymphadenopathy Right axilla removal 08/01/19 History of breast biopsy July 04 History of foot surgery History of tonsillectomy Family History Other Cancer Diabetes Denies family history of Anesthesia complication Bleeding disorder Social History Smoking and tobacco/nicotine status: current every day tobacco/nicotine user Physical Exam 2 Const: COMMON NORMALS: no acute distress, average body habitus, patient oriented x3, no limitations, healthy appearing, alert and well nourished HENMT: COMMON NORMALS: normocephalic and atraumatic HEAD & SCALP: n ormocephalic and atraumatic MOUTH: Normal oral and palatal mucosa present, lip normal, tongue normal and Normal salivary glands and ducts present TEETH & GINGIVA: Yes caries TEETH & GINGIVA IMAGES: 1. dental pain, gingival inflammation THROAT: posterior oropharynx normal and tonsils normal Neck/C-Spine: COMMON NORMALS: no lymphadenopathy GENERAL: No anterior neck swelling and No submandibular swelling Resp: COMMON NORMALS: normal respiratory effort and clear to auscultation bilaterally AUSCULTATION: clear to auscultation bilaterally Cardio: COMMON NORMALS: regular rate and regular rhythm RATE: regular rate RHYTHM: regular rhythm : COMMON NORMALS: Yes no CVA tenderness BLADDER/KIDNEY EXAM: Yes no CVA tenderness Back/Pelvis: COMMON NORMALS: no CVA tenderness, thoracic and lumbar spine normal to inspection, no thoracic nor lumbar tenderness and straight leg raise negative bilaterally LUMBAR SPINE/LOWER BACK: No lumbar spinal tenderness and Yes paraspinal muscle tenderness Lumbar paraspinal muscle tenderness: right P GEO: Yes buttocks normal and Yes sciatic notch tenderness on the right S ACROILIAC JOINTS: Yes SI joint(s) abnormal SI joint details: tender to palpation (R) SACRUM: no tenderness COCCYX: no tenderness Extremity: COMMON NORMALS: capillary refill normal, no clubbing, cyanosis or edema, no calf tenderness and no pedal edema GENERAL: Yes normal exam except as noted Neuro: COMMON NORMALS: patient oriented x3, moves all extremities, no focal motor deficits and no sensory deficits noted SENSORIUM/ORIENTATION: Yes alert Skin: COMMON NORMALS: no rashes or lesions noted GENERAL SKIN EXAM: no rashes or lesions noted Course 2 Vital Signs: Vital signs: Vital Signs Temperature 98.1 F 01/02/25 12:26 Pulse Rate 67 01/02/25 12:26 Blood Pressure 136/74 01/02/25 12:26 Pulse Oximetry 98 01/02/25 12:26 Oxygen Delivery Me thod Room Air 01/02/25 12:26 MDM - General Adult Medical Decision Making Will place on antibiotics for dental infection. Will provide her a small amount of hydrocodone to help with her back discomfort. Recommend she follow-up with primary care between now and her pain management appointment. Medical Records I reviewed the patient's medical records. No radiology studies performed this visit Discharge Plan Discharge Patient Disposition: Home Clinical Impression: Dental infection, Acute exacerbation of chronic low back pain Condition: Stable Prescriptions: New clindamycin HCl 300 mg capsule 300 mg PO Q6H 7 Days Qty: 28 0RF hydrocodone-acetaminophen 5-325 mg tablet 1 tab PO Q6H PRN (Reason: pain) Qty: 15 0RF No Action pantoprazole [Protonix] 40 mg tablet,delayed release (DR/EC) 40 mg PO DAILY Qty: 30 5RF albuterol sulfate [ProAir HFA] 90 mcg/actuation HFA aerosol inhaler 2 puff inhalation QID PRN (Reason: shortness of breath or wheezing) Qty: 6.7 0RF Orilissa 150 mg tablet 150 mg PO DAILY Qty: 30 0RF ibuprofen 800 mg tablet 800 mg PO TID PRN (Reason: pain) Qty: 60 6RF meloxicam 15 mg tablet 15 mg PO DAILY Qty: 30 3RF estradiol [Estrace] 0.01 % (0.1 mg/gram) cream 1 appful vaginal DAILY Qty: 42.5 3RF Rx Instructions: apply one applicator full vaginally twice weekly hydrocodone-acetaminophen 5-325 mg tablet 1 tab PO Q4H PRN (Reason: pain) Qty: 10 0RF acetaminophen 325 mg capsule 325 mg PO Q4H PRN (Reason: fever or pain) Qty: 60 0RF fluticasone propionate 50 mcg/actuation spray,suspension 2 spray intranasal DAILY PRN (Reason: allergies) Rx Instructions: administer into each nostril Discharge Orders: Discharge ED (Routine); Ordered 01/02/25 Ordered By: Tita Andino Referrals: iKrsty Nunez FNP-C [Primary Care Provider, Family Practice] Patient Instructions: Opioid Safety, Pain Management, Patient Portal & [facility] Instructions Activity Restrictions/Additional Instructions: As we discussed, please follow-up with primary care between now and your pain management appointment if you have any further chronic pain concerns that need addressed. You may follow-up with your dentist regarding your dental pain. You may return to the emergency department at anytime for any further concerns you may have. Print Language: Stateless Coding Level of Care Code ED Data Clerk for Briseida Thrasher
== END 2025-01-02 13:12 | disposition home or self-care (01) ==
PROVIDERS: Emergency Provider Physician Assistant; PCP Nurse Practitioner Family
DX: K04.7 Periapical abscess without sinus (principal); M54.50 Low back pain, unspecified; Z72.0 Tobacco use
CPT/HCPCS: 96372; 99284; J1100